=== PATIENT | female | born 1980 | race Caucasian/White ===

== ENCOUNTER 2023-08-19 15:47 | Inpatient (IN) ==
--- NOTE | 2023-08-19 15:52 | ED Triage Note ---
Date of Service August 19, 2023 History of Present Illness This patient was briefly evaluated while in triage. An abbreviated physical exam was performed. This patient is a 42-year-old Female who presents to the ED for evaluation of chest pain. The patient had chest pain around lunchtime. Patient also had nausea as well. She did take nitroglycerin with improvement of symptoms, other than having pain radiating around to the back. Patient currently describes left lateral chest/rib pain. She denies shortness of breath. The patient had a myocardial infarction on July 06, and had a stent placed at [facility]. The patient reports that her current pain is different than the pain that she had with her initial heart attack. Physical Exam CONSTITUTIONAL: Healthy and well nourished. HEENT: Normocephalic, atraumatic. Pupils equal, round and reactive. RESPIRATORY: Clear to auscultation bilaterally with no wheezing, crackles, rhonchi or stridor. CARDIOVASCULAR: Regular rate and rhythm with no murmurs, rubs or gallops. INTEGUMENTARY: No rash or other significant dermatologic conditions noted. HEMATOLOGIC: No ecchymosis or petechiae. PSYCHIATRIC: Positive affect. NEUROLOGIC: No focal neurologic deficits noted. Initial orders for labs and / or imaging were placed and patient was placed in the waiting area until a bed is available. Please see further documentation for the full ED course.
[2023-08-19 16:36] LABS: Basophils # (auto) 0.05 K/uL (0.00-0.20); Basophils % (auto) 0.5 %; Eosinophils # (auto) 0.19 K/uL (0.00-0.50); Eosinophils % (auto) 1.9 %; Hematocrit (blood only) 38.4 % (37.0-47.0); Hemoglobin 12.8 g/dl (12.0-16.0); Immature Granulocytes # (auto) 0.03 K/uL (0.01-0.20); Immature Granulocytes % (auto) 0.3 %; Lymphocytes # (auto) 2.42 K/uL (1.20-3.40); Lymphocytes % (auto) 24.5 %; Mean Corpuscular Hgb Conc 33.3 g/dL (32.0-36.0); Mean Platelet Volume 12.9 fL (9.4-12.4); Monocytes # (auto) 0.73 K/uL (0.11-0.59); Monocytes % (auto) 7.4 %; Neutrophils # (auto) 6.45 K/uL (1.40-6.50); Neutrophils % (auto) 65.4 %; Platelet Count 212 K/uL (130-400); RDW Coefficient of Variation 12.6 % (11.5-14.5); RDW Standard Deviation 44.5 fL (36.4-46.3); White Blood Count 9.87 K/ul (4.8-10.8)
--- NOTE | 2023-08-19 16:37 | Emergency Department Note ---
Impression & Plan Chest pain ED Provider Note CHIEF COMPLAINT: Chest pain HPI: This is a 42-year-old female presenting for chest pain. Patient states she had an VT on 07/29, possibly right RCA which she can remember exactly. She states that that chest pain was significant nausea, vomiting and chest burning. Today her chest pain is different, she is slightly nauseous but has a deep pain in her left chest at the apex of her heart rating into her left shoulder. She has a pressure type sensation. It is somewhat pleuritic and positional. Otherwise the pain is different than her ACS/VT pain. It is not as severe. She is having no shortness of breath at this time. There is no actual vomiting today. She did take nitro for her pain which improved her symptoms transiently. ROS: See above HPI for pertinent positives & negatives. A total of 10 systems reviewed and were otherwise negative. PAST MEDICAL HISTORY: See Below PAST SURGICAL HISTORY: See Below FAMILY HISTORY: See Below SOCIAL HISTORY: See Below HOME MEDICATIONS: See Below ALLERGIES: See Below VITALS: See Below PHYSICAL EXAMINATION: General: resting comfortably in no acute distress Head: Normocephalic and atraumatic Eyes: Normal inspection, extraocular muscles intact Ear, nose, throat: Normal external exam Neck: Normal range of motion Respiratory: lungs clear to auscultation bilaterally Cardiovascular: Regular rate/rhythm, no murmur GI: soft, nontender, no guarding or rebound Extremities: nontender, moves all extremities Neuro: The patient awake and alert, appropriately conversive, no focal deficits, symmetric faces Skin: Warm, dry, and intact MEDICAL DECISION MAKING: This is a 42-year-old female presenting for chest pain. Patient VT on 07/29, about 3 weeks ago. Bedside echocardiogram performed by me and interpreted showing no large pericardial effusion, preserved EF otherwise, otherwise views are technically limited. Patient's blood work here is reassuring, no leukocytosis, no anemia, electrolytes within normal limits. Creatinine is elevated 1.4, rising from previous values. Otherwise troponin initially was 12, not significantly elevated. Patient does not have any significant improvement in chest pain. Chest Xray independently interpreted by me showing no pneumothorax, focal opacity, or pleural effusions. Patient is Wells/PERC negative at this time. Low concern for PE. Consider post VT complications, will admit for further work-up. Discussed with hospitalist VANDANA from [facility] service for admission Triage Nursing notes reviewed. Prior medical records reviewed Vital Signs: reviewed and remarkable for no significant abnormalities Differential diagnosis: ACS, dissection, Alvaro syndrome, ventricular aneurysm, ER treatment provided: See below Diagnostics interpreted by me: ECG: ECG independently interpreted by me with sinus bradycardia, rate of 56, normal ME, normal QRS, normal QTc, no ST segment elevations consistent with STEMI criteria, new T wave inversions in leads II, III and aVF as well as V3 through V6 Cardiac Monitoring: An order was placed for continuous cardiac monitoring. The monitor shows a rate of 65 with sinus rhythm. Laboratory studies: As stated above and show below. Imaging studies: See below. Radiographic imaging was reviewed by myself Consultation(s): None Past Med/Surg History Medical History (Updated 08/19/23 @ 19:39 by August Thomas MD) Tobacco use History of ST elevation myocardial infarction (STEMI) SLE (systemic lupus erythematosus related syndrome) delivery delivered Chest pain Lupus Pneumonitis Family History (Updated 08/19/23 @ 19:16 by LISBET Bolanos) Father Coronary heart disease Mother Coronary heart disease Other Dyslipidemia Heart disease Hypertension No pertinent family history Social History Smoking Status: Current every day smoker Tobacco Type: Cigarettes Preferred Language: Yoruba Communication Ability: Effective Communication Ability Comment: slurred speach/drowsy Visual Impairment: No Limitations Hearing Ability: Normal 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 Beliefs That Will Affect Care: None marital status details: Current Living Situation: Family Feels Safe at Home: Yes Assistive Devices: None Allergies Allergies Allergy/AdvReac Type Severity Reaction Status Date / Time Penicillins Allergy Intermediate Hives Verified 02/22/20 15:38 Home Meds Home Medications Medication Instructions Recorded Confirmed hydroxychloroquine 200 mg tablet 400 mg PO QAM 07/08/18 08/19/23 (Plaquenil) aspirin 81 mg tablet,delayed 81 mg PO DAILY 08/19/23 08/19/23 release atorvastatin 80 mg PO DAILY 08/19/23 08/19/23 duloxetine 60 mg capsule,delayed 60 mg PO DAILY 08/19/23 08/19/23 release gabapentin 300 mg capsule 600 mg PO HS 08/19/23 08/19/23 losartan 25 mg tablet 25 mg PO DAILY 08/19/23 08/19/23 nicotine 21 mg/24 hr daily 1 patch transdermal DAILY 08/19/23 08/19/23 transdermal patch nitroglycerin 0.4 mg sublingual 0.4 mg sublingual UD PRN Chest Pain 08/19/23 08/19/23 tablet prasugrel 10 mg tablet 10 mg PO .EVERY 24 HOURS 08/19/23 08/19/23 quetiapine 100 mg tablet 100 mg PO HS 08/19/23 08/19/23 semaglutide (weight loss) 2.4 2.4 mg subcut WK 08/19/23 08/19/23 mg/0.75 mL subcutaneous pen injector (Wegovy) verapamil 240 mg tablet,extended 240 mg PO QAM 08/19/23 08/19/23 release Results & Data (ED) Vital Signs Vital Signs - 24 hr 08/19/23 15:49 08/19/23 16:01 08/19/23 16:08 Temperature 36.2 C L Temperature Source Temporal Artery Scan Pulse Rate 67 56 L Pulse Rate from SpO2 Sensor 56 L Respiratory Rate 18 9 L Respiratory Effort / Characteristics Non-Labored Blood Pressure 150/79 H Blood Pressure Mean 102 Pulse Oximetry 96 98 Oxygen Delivery Method Room Air Sepsis Recent Fever Within 48 Hours No Sepsis New/Unexplained Change in Mental Status No Sepsis Action Taken by Nursing No Action Required 08/19/23 16:08 08/19/23 16:11 08/19/23 16:15 Temperature Temperature Source Pulse Rate 56 L 56 L Pulse Rate from SpO2 Sensor 57 L Respiratory Rate 13 Respiratory Effort / Characteristics Blood Pressure Blood Pressure Mean Pulse Oximetry 99 Oxygen Delivery Method Room Air Sepsis Recent Fever Within 48 Hours Sepsis New/Unexplained Change in Mental Status Sepsis Action Taken by Nursing 08/19/23 16:30 08/19/23 16:45 08/19/23 17:01 Temperature Temperature Source Pulse Rate 67 56 L 55 L Pulse Rate from SpO2 Sensor 66 56 L 55 L Respiratory Rate 19 11 L 11 L Respiratory Effort / Characteristics Blood Pressure 131/68 Blood Pressure Mean 89 Pulse Oximetry 95 99 100 Oxygen Delivery Method Sepsis Recent Fever Within 48 Hours Sepsis New/Unexplained Change in Mental Status Sepsis Action Taken by Nursing 08/19/23 17:15 08/19/23 17:26 08/19/23 17:26 Temperature Temperature Source Pulse Rate 54 L 55 L Pulse Rate from SpO2 Sensor 53 L 53 L Respiratory Rate 9 L 10 L Respiratory Effort / Characteristics Blood Pressure 131/68 Blood Pressure Mean 82 Pulse Oximetry 97 99 Oxygen Delivery Method Sepsis Recent Fever Within 48 Hours Sepsis New/Unexplained Change in Mental Status Sepsis Action Taken by Nursing 08/19/23 17:30 08/19/23 17:45 08/19/23 18:00 Temperature Temperature Source Pulse Rate 66 58 L 50 L Pulse Rate from SpO2 Sensor 102 H 55 L 50 L Respiratory Rate 16 14 16 Respiratory Effort / Characteristics Blood Pressure Blood Pressure Mean Pulse Oximetry 79 L 99 99 Oxygen Delivery Method Sepsis Recent Fever Within 48 Hours Sepsis New/Unexplained Change in Mental Status Sepsis Action Taken by Nursing 08/19/23 18:00 08/19/23 18:15 08/19/23 18:30 Temperature Temperature Source Pulse Rate 55 L 74 Pulse Rate from SpO2 Sensor 57 L Respiratory Rate 18 16 Respiratory Effort / Characteristics Blood Pressure 126/73 Blood Pressure Mean 82 Pulse Oximetry 100 85 L Oxygen Delivery Method Sepsis Recent Fever Within 48 Hours Sepsis New/Unexplained Change in Mental Status Sepsis Action Taken by Nursing 08/19/23 18:45 08/19/23 19:00 Temperature Temperature Source Pulse Rate 65 Pulse Rate from SpO2 Sensor 65 59 L Respiratory Rate 13 20 Respiratory Effort / Characteristics Blood Pressure Blood Pressure Mean Pulse Oximetry 98 90 Oxygen Delivery Method Sepsis Recent Fever Within 48 Hours Sepsis New/Unexplained Change in Mental Status Sepsis Action Taken by Nursing Laboratory Data 08/19/23 16:09 08/19/23 16:09 Lab Results 08/19/23 Range/Units 16:09 WBC 9.87 (4.8-10.8) K/ul RBC 4.00 L (4.20-5.40) M/uL Hgb 12.8 (12.0-16.0) g/dl Hct 38.4 (37.0-47.0) % MCV 96.0 (80.0-100.0) fL MCH 32.0 (25.0-34.0) pg MCHC 33.3 (32.0-36.0) g/dL RDW Std Deviation 44.5 (36.4-46.3) fL RDW Coeff of Fred 12.6 (11.5-14.5) % Plt Count 212 (130-400) K/uL MPV 12.9 H (9.4-12.4) fL Immature Gran % (Auto) 0.3 % Neut % (Auto) 65.4 % Lymph % (Auto) 24.5 % Gilliam % (Auto) 7.4 % Eos % (Auto) 1.9 % Baso % (Auto) 0.5 % Neut # (Auto) 6.45 (1.40-6.50) K/uL Lymph # (Auto) 2.42 (1.20-3.40) K/uL Gilliam # (Auto) 0.73 H (0.11-0.59) K/uL Eos # (Auto) 0.19 (0.00-0.50) K/uL Baso # (Auto) 0.05 (0.00-0.20) K/uL Immature Gran # (Auto) 0.03 (0.01-0.20) K/uL PT 11.1 (9.0-12.0) Seconds INR 1.0 (0.9-1.1) APTT 25.1 (21.0-31.0) Seconds PTT Ratio 0.9 Sodium 141 (136-145) mmol/L Potassium 3.7 (3.5-5.1) mmol/L Chloride 107 (98-107) mmol/L Carbon Dioxide 26 (21-32) mmol/L Anion Gap 8 (3-11) BUN 12 (6-23) mg/dl Creatinine 1.40 H (0.6-1.2) mg/dl Est Cr Clr Drug Dosing 55.7 ml/min Est GFR ( Amer) 52.8 ml/min Est GFR (Non-Af Amer) 45.6 ml/min BUN/Creatinine Ratio 8.6 L (10-20) Glucose 107 H (70-99(Fasting)) mg/dl Calcium 9.3 (8.6-10.3) mg/dl Total Bilirubin 0.6 (0.2-1.0) mg/dl AST 17 (13-39) U/L ALT 14 (7-52) U/L Alkaline Phosphatase 84 (34-104) U/L Troponin I High Sens 12.4 (0-14) pg/ml Total Protein 7.0 (6.0-8.3) gm/dl Albumin 4.3 (3.4-5.0) gm/dl Globulin 2.7 (2.5-4.0) gm/dl Albumin/Globulin Ratio 1.6 (0.9-2) Imaging Data Radiologist's Impression: Chest X-Ray 08/19/23 16:15 XR chest 1V not portable CLINICAL HISTORY: Chest pain, nonspecific COMPARISON STUDY: Chest CT September 11, 2016. Chest radiograph July 07, 2018. FINDINGS: Lung volumes are normal. Lungs are clear. There is no pneumothorax or pleural effusion. Cardiac size is normal. Mediastinal contours are normal. There is no evidence for pulmonary edema. IMPRESSION: No acute cardiopulmonary findings. ACT 112: Negative or not required by law. Electronically signed by: Tom Flaherty M.D. 08/19/2023 4:46 PM Discharge Plan Visit Data Chief Complaint: Chest Pain Stated Complaint: CHEST PAIN, VOMITING, STINT PUT IN ED Provider: August Thomas Discharge Problem: Chest pain Patient Disposition: Admitted As Inpatient Discharge Instructions Interventions: ED Discharge Assessment Last Done: 08/19/23 19:23 Prescriptions Prescriptions: No Action hydroxychloroquine [Plaquenil] 200 mg Tablet 400 mg PO QAM losartan 25 mg tablet 25 mg PO DAILY gabapentin 300 mg capsule 600 mg PO HS Wegovy 2.4 mg/0.75 mL pen injector 2.4 mg SUBCUT WK aspirin [Aspirin Low-Strength] 81 mg Tablet,Delayed Release (Dr/Ec) 81 mg PO DAILY prasugrel 10 mg tablet 10 mg PO .EVERY 24 HOURS nicotine 21 mg/24 hr patch 24 hour 1 patch transdermal DAILY quetiapine 100 mg tablet 100 mg PO HS duloxetine 60 mg capsule,delayed release(DR/EC) 60 mg PO DAILY nitroglycerin 0.4 mg tablet, sublingual 0.4 mg sublingual UD PRN (Reason: Chest Pain) verapamil 240 mg tablet extended release 240 mg PO QAM atorvastatin 80 mg PO DAILY
[2023-08-19 16:48] LABS: Albumin Globulin Ratio 1.6 (0.9-2); Albumin Level 4.3 gm/dl (3.4-5.0); BUN Creatinine Ratio 8.6 (10-20); Bilirubin,Total 0.6 mg/dl (0.2-1.0); Calcium 9.3 mg/dl (8.6-10.3); Creatinine Clr Calc Pharmacy 55.7 ml/min; Est GFR (African American) 52.8 ml/min; Est GFR (Non-African American) 45.6 ml/min; Globulin 2.7 gm/dl (2.5-4.0); Potassium 3.7 mmol/L (3.5-5.1)
--- NOTE | 2023-08-19 16:48 | XRay Report ---
XR chest 1V not portable CLINICAL HISTORY: Chest pain, nonspecific COMPARISON STUDY: Chest CT September 11, 2016. Chest radiograph July 07, 2018. FINDINGS: Lung volumes are normal. Lungs are clear. There is no pneumothorax or pleural effusion. Car diac size is normal. Mediastinal contours are normal. There is no evidence for pulmonary edema. IMPRESSION: No acute cardiopulmonary findings. ACT 112: Negative or not required by law. Electronically signed by: Tom Flaherty M.D. 08/19/2023 4:46 PM
[2023-08-19 16:57] LABS: Partial Thromboplastin Ratio 0.9; Partial Thromboplastin Time 25.1 Seconds (21.0-31.0); Prothrombin Time 11.1 Seconds (9.0-12.0); Troponin I High Sensitivity 12.4 pg/ml (0-14)
[2023-08-19] MEDS ORDERED: MAGNESIUM HYDROXIDE SUSP 30 ML UDC PO PRN (18:18)
[2023-08-19] MEDS ORDERED: ACETAMINOPHEN 325 MG TAB PO PRN (18:18)
[2023-08-19] MEDS ORDERED: ALUMINUM/MAGNESIUM SUSP 30 ML UDC PO PRN (18:18)
[2023-08-19] MEDS ORDERED: ONDANSETRON INJ 2 MG/ML 2 ML VIAL IV PRN (18:18)
[2023-08-19] MEDS ORDERED: POLYETHYLENE (MIRALAX) 17 GM PACK PO PRN (18:18)
--- NOTE | 2023-08-19 18:25 | History & Physical Report ---
Date of Service August 19, 2023 Assessment & Plan (1) Chest pain: (2) History of ST elevation myocardial infarction (STEMI): (3) SLE (systemic lupus erythematosus related syndrome): (4) Depression: (5) Tobacco use: Plan Ms. Belle is a pleasant 42 year old female that presented to the [facility] ED for chest pain that started today. She woke at 0730 not 'feeling well'. She went to work and around 1130 felt nauseated and vomited x1. She reports feeling slightly better and tried eating lunch around noon. She noticed that she developed chest pain under her left breast with shoulder/back radiation at 12:00; she proceeded to take SL Nitro x1 with relief. Patient recently experienced a STEMI on 07/06/23 and underwent PCI s/p drug-eluting stent x1 to RCA at [facility] after being transferred from [facility] that precipitated with a sudden onset of chest pain at rest while she was watching her sons baseball game in [place]. She has reported no symptoms since her STEMI and has had one follow up with [facility] Cardiology and saw Dr. Pinto on Wednesday 08/15 at [facility]. She is in the process of transferring her cardiology care to [facility]. ECG during her STEMI showed ST elevations in the inferior leads with depressions in V1 V2 concerning for inferior ST-elevation NV with RV involvement. Echocardiogram done at the time showed LVEF of 45-50%. This information was obtained from [employer]MR[employer]; however, was unable to review those ECG myself. After her STEMI she was subsequently started on baby ASA, Atorvastatin 80 mg, Effient, and Losartan. Per patient she was not a candidate for a betabl ocker due to bradycardia. Additional PMH includes SLE (managed by Dr. Dawkins and takes Plaquinol), obesity, and depression. Patient with extensive cardiac family history including father at 60 y/o s/p AMI/CAD. Mother with carotid stenosis s/p endarectomy.Patient is an active tobacco user; reducing; currently smoking 4-5 cigarettes per day, along with medical marijuana for a nxiety. Denies other recreational drug use and alcohol. In the ED, no leukocytosis, ED performed bedside ECHO US without concerns for pericardial effusion. Initial Troponin 12.4; will trend. Currently with NO chest pain. WELLS criteria 3.0; suspect low indication for PE. No SOB at rest. To note, patient is on Verapamil for history of headaches and has taken this medication for years; per outpatient review may be held in the future for preservation of EF. For now, patient will be admitted to rule out post NV complications with new onset of chest pain. patient is currently chest pain free. Will obtain ECHO, continue ASA, Effient, Atorvastatin, and obtain Cardiology consultation. Chest pain: CAD: acute uncontrolled currently chest pain free Initial Troponin 12.4; will trend Check Mg+ ECG in AM and PRN Takes Effient;continue Takes ASA, Atorvastatin; continue Takes Wegovy; hold Obtain ECHO. Per review of [facility] records; patient ECHO during her STEMI revealed EVEF 45-50%; suspected related to Verapamil use Euvolemic on exam ECG in AM Initiate heparin gtt LIZZETH: baseline creatinine 1.0--> 1.4 Suspect History of STEMI: 07/06/2023: sudden onset of chest pain. Transferred from [place] to [facility] for PCI s/p TY x1 to RCA. Tobacco Use: smoking cessation recommended d/t recent STEMI and strong CAD family risks Nicotine patch ordered SLE: chronic stable Follows with Dr. Brown Takes Plaquinil; continue Depression: chronic stable takes Seroquel; continue Headaches: Chronic stable Takes Verapamil for years; continue for now [facility] records indicate this was being considered to be dicontinued Disposition: PCP: Dr. Horowitz Code status: Full Code VTE Prophylaxis: Takes Effient I spent a total of 88 minutes coordinating, documenting, and providing care for this patient excluding time spent in the performance of separately billed ser vices. All of the aforementioned completed while collaborating with the assigned attending physician for a full treatment plan. Please see their addendum for further details. History of Present Illness Chief Complaint: chest pain Primary Care Provider: De. Horowitz Ms. Belle is a pleasant 42 year old female that presented to the [facility] ED for chest pain that started today. She woke at 0730 not 'feeling well'. She went to work and around 1130 felt nauseated and vomited x1. She reports feeling slightly better and tried eating lunch around noon. She noticed that she developed chest pain under her left breast with shoulder/back radiation at 12:00; she proceeded to take SL Nitro x1 with relief. Patient recently experienced a STEMI on 07/06/23 and underwent PCI s/p drug-eluting stent x1 to RCA at [facility] after being transferred from [facility] that precipitated with a sudden onset of chest pain at rest while she was watching her sons baseball game in [place]. She has reported no symptoms since her STEMI and has had one follow up with [facility] Cardiology and saw Dr. Pinto on Wednesday 08/15 at [facility]. She is in the process of transferring her cardiology care to [facility]. ECG during her STEMI showed ST elevations in the inferior leads with depressions in V1 V2 concerning for inferior ST-elevation NV with RV involvement. Echocardiogram done at the time showed LVEF of 45-50%. This information was obtained from [employer]MR[employer]; however, was unable to review those ECG myself. After her STEMI she was subsequently started on baby ASA, Atorvastatin 80 mg, Effient, and Losartan. Per patient she was not a candidate for a betablocker due to bradycardia. Additional PMH includes SLE (managed by Dr. Dawkins and takes Plauinol), obesity, and depression. Patient with extensive cardiac family history including father at 60 y/o s/p AMI/CAD. Mother with carotid stenosis s/p endarectomy. Patient is an active tobacco user; reducing; currently smoking 4-5 cigarettes per day, along with medical marijuana for anxiety. Denies other recreational drug use and alcohol. In the ED, no leukocytosis, ED performed bedside ECHO US without concerns for pericardial effusion. Initial Troponin 12.4; will trend. Currently with NO chest pain. WELLS criteria 3.0; suspect low indication for PE. No SOB at rest. To note, patient is on Verapamil for history of headaches and has taken this medication for years; per outpatient review may be held in the future for preservation of EF. ECG today SB HR 49 QTc < 500. For now, patient will be admitted to rule out post NV complications with new onset of chest pain. patient is currently chest pain free. Will obtain ECHO, continue ASA, Effient, Atorvastatin, and obtain Cardiology consultation. WIll initiate heparin gtt with note of the ECG changes. Allergies Allergy/AdvReac Type Severity Reaction Status Date / Time Penicillins Allergy Intermediate Hives Verified 02/22/20 15:38 Home Medications Medication Instructions Recorded Confirmed Type hydroxychloroquine 200 mg tablet 400 mg PO QAM 07/08/18 08/19/23 History (Plaquenil) aspirin 81 mg tablet,delayed 81 mg PO DAILY 08/19/23 08/19/23 History release atorvastatin 80 mg PO DAILY 08/19/23 08/19/23 History duloxetine 60 mg capsule,delayed 60 mg PO DAILY 08/19/23 08/19/23 History release gabapentin 300 mg capsule 600 mg PO HS 08/19/23 08/19/23 History losartan 25 mg tablet 25 mg PO DAILY 08/19/23 08/19/23 History nicotine 21 mg/24 hr daily 1 patch transdermal DAILY 08/19/23 08/19/23 History transdermal patch nitroglycerin 0.4 mg sublingual 0.4 mg sublingual UD PRN Chest Pain 08/19/23 08/19/23 History tablet prasugrel 10 mg tablet 10 mg PO .EVERY 24 HOURS 08/19/23 08/19/23 History quetiapine 100 mg tablet 100 mg PO HS 08/19/23 08/19/23 History semaglutide (weight loss) 2.4 2.4 mg subcut WK 08/19/23 08/19/23 History mg/0.75 mL subcutaneous pen injector (Wereginaldvy) verapamil 240 mg tablet,extended 240 mg PO QAM 08/19/23 08/19/23 History release Past Med/Surg History Medical History (Updated 08/19/23 @ 21:55 by Janet Burrell DO) Tobacco use History of ST elevation myocardial infarction (STEMI) SLE (systemic lupus erythematosus related syndrome) delivery delivered Chest pain Lupus Pneumonitis Family History (Updated 08/19/23 @ 19:16 by LISBET Bolanos) Father Coronary heart disease Mother Coronary heart disease Other Dyslipidemia Heart disease Hypertension No pertinent family history Social History Smoking Status: Current every day smoker Tobacco Type: Cigarettes Second Hand Exposure: No; Do You Dip or Chew Tobacco: No; Tobacco Cessation Education Requested by Patient: No Hx Alcohol Use: No Preferred Language: Nepali Communication Ability: Effective Visual Impairment: No Limitations Hearing Ability: Normal Shift Superintendent Required: No Beliefs That Will Affect Care: None marital status details: Current Living Situation: Family Other Information That Helps Us Care for You: No Feels Safe at Home: Yes Assistive Devices: Glasses Review of Systems Review of Systems: Neuro: (-) Falls, trauma, slurred speech HEENT: (-) SALAZAR, dizziness, dysphagia, visual or auditory changes CV: (-) CP, palpitations, swelling Resp: (-) SOB GI: (-) appetite changes, N/V/D, bowel changes : (-) urinary changes Skin: (-) rashes Psych: (-) anxiety, depression Physical Exam Physical Exam: Neuro: AAOx4, PERRLA, no aphagia, memory changes, CNII-XII grossly intact HEENT: head normocephalic, moist mucus membranes CV: S1/S2, (-) M/G/R, (-) edema, cap refill < 3 seconds Resp: Lungs CTA in all amador. On RA GI: Abdomen S/NT/ND, Ax4 bowel sounds, (-) CVA tenderness Musculoskeletal: 5/5 B/L UE strength, 5/5 B/L LE strength. No gait disturbance Skin: (-) rashes , (-) erythema. Psych: euthymic mood Results & Data Results & Data Vital Signs (Past 12 Hours) Vital Signs Temp Pulse Resp BP Pulse Ox O2 Del Method 08/19/23 17:45 58 L 14 99 08/19/23 17:30 66 16 79 L 08/19/23 17:26 131/68 08/19/23 17:26 55 L 10 L 99 08/19/23 17:15 54 L 9 L 97 08/19/23 17:01 55 L 11 L 131/68 100 08/19/23 16:45 56 L 11 L 99 08/19/23 16:30 67 19 95 08/19/23 16:15 56 L 13 99 08/19/23 16:11 56 L 08/19/23 16:08 Room Air 08/19/23 16:01 56 L 9 L 98 08/19/23 15:49 36.2 C L 67 18 150/79 H 96 Room Air Laboratory Results Short CBC 08/19/23 Range/Units 16:09 WBC 9.87 (4.8-10.8) K/ul Hgb 12.8 (12.0-16.0) g/dl Hct 38.4 (37.0-47.0) % Plt Count 212 (130-400) K/uL BMP 08/19/23 16:09 Sodium 141 Potassium 3.7 Chloride 107 Carbon Dioxide 26 BUN 12 Creatinine 1.40 H Glucose 107 H Calcium 9.3 Liver Function 08/19/23 Range/Units 16:09 Total Bilirubin 0.6 (0.2-1.0) mg/dl AST 17 (13-39) U/L ALT 14 (7-52) U/L Alkaline Phosphatase 84 (34-104) U/L Albumin 4.3 (3.4-5.0) gm/dl Diagnostic Findings Chest X-Ray 08/19/23 16:15 XR chest 1V not portable CLINICAL HISTORY: Chest pain, nonspecific COMPARISON STUDY: Chest CT September 11, 2016. Chest radiograph July 07, 2018. FINDINGS: Lung volumes are normal. Lungs are clear. There is no pneumothorax or pleural effusion. Cardiac size is normal. Mediastinal contours are normal. There is no evidence for pulmonary edema. IMPRESSION: No acute cardiopulmonary findings. ACT 112: Negative or not required by law. Electronically signed by: Tom Flaherty M.D. 08/19/2023 4:46 PM Code Status & VTE Plan Code Status Full Code in the event of cardiac or respiratory arrest VTE Prophylaxis Plan VTE Prophylaxis will be ordered: Yes Supervising Physician Co-Signing Physician Notes I have seen and examined the patient and have discussed the case with the provider above. I agree with the assessment and plan as stated. 42-year-old female with nausea vomiting chest pain with radiation resolved with nitro. Recently underwent drug-eluting stent placement to RCA at [facility] after presenting with an ST elevation NV. She has a significant cardiac history and is continuing to smoke cigarettes. On physical exam she is hemodynamically stable and afebrile oxygenating well on room air. She is mentating and ambulating at her baseline. CV exam reveals S1-S2 heard with regular rate and rhythm. Heart sounds were distant and she was repositioned on to her left side. There was no evidence of murmur gallops or rubs. Extremities were warm and well-perfused. She was euvolemic on exam. Lungs were clear to auscultation bilaterally and abdomen soft nontender nondistended. EKG reveals T wave inversion in the inferior and lateral leads. There is no evidence of ST elevation. Initial at bedtime troponin was 12.4 with a repeat of 20.83 hours later. Labs otherwise reviewed and creatinine was noted to be up to 1.4. Patient reports that her baseline creatinine is 1.3. Chest x-ray reveals no acute cardiopulmonary findings. Chest pain, concerning for possible ACS and given high risk will add heparin to DAPT. Trend trop overnight, EKG in am. Telemetry monitoring overnight. I explained to her the importance of vocalizing when she has pain and she verbalized understanding with intent to comply. Nitro PRN. Cardiology to see her in the morning. DO Indra (1) Chest pain Chest pain type: chest pain due to myocardial ischemia Ischemic chest pain type: unspecified angina pectoris type Qualified Code(s): I25.9 - Chronic ischemic heart disease, unspecified (4) Depression Depression Type: unspecified Qualified Code(s): F32.A - Depression, unspecified
[2023-08-19 19:39] LABS: Chol HDL Ratio 3.2 (0-5); Phosphorus 4.2 mg/dl (2.5-4.9)
[2023-08-19 19:45] LABS: Troponin I High Sensitivity 20.8 pg/ml (0-14)
[2023-08-19] MEDS ORDERED: NICOTINE 14 MG/24 HR PATCH TD SCH (20:00)
[2023-08-19] MEDS: QUEtiapine FUMARATE 100 MG TABLET PO SCH (21:02)
[2023-08-19] MEDS: GABAPENTIN 300 MG CAP PO SCH (21:02)
[2023-08-19] MEDS ORDERED: Heparin IV Adult Wt-Based Standard WITH Bolus Protocol IV SCH (21:05)
[2023-08-19] MEDS ORDERED: HEPARIN SOD (PORCINE) 1000 UNIT/ML IV ONE (21:45)
[2023-08-19] MEDS ORDERED: HEPARIN SODIUM/DEXTROSE 25,000 UNITS/500 ML BAG IV SCH (21:45)
[2023-08-20 05:07] LABS: Hematocrit (blood only) 34.9 % (37.0-47.0); Hemoglobin 11.6 g/dl (12.0-16.0); Mean Corpuscular Hemoglobin 32.4 pg (25.0-34.0); Mean Corpuscular Hgb Conc 33.2 g/dL (32.0-36.0); Mean Corpuscular Volume 97.5 fL (80.0-100.0); Mean Platelet Volume 12.8 fL (9.4-12.4); Platelet Count 171 K/uL (130-400); RDW Coefficient of Variation 12.7 % (11.5-14.5); RDW Standard Deviation 45.4 fL (36.4-46.3); Red Blood Count 3.58 M/uL (4.20-5.40); White Blood Count 8.13 K/ul (4.8-10.8)
[2023-08-20 05:21] LABS: BUN Creatinine Ratio 7.9 (10-20); Calcium 9.2 mg/dl (8.6-10.3); Creatinine Clr Calc Pharmacy 56.1 ml/min; Est GFR (African American) 53.3 ml/min; Magnesium 2.3 mg/dl (1.7-2.4); Potassium 3.9 mmol/L (3.5-5.1)
[2023-08-20 05:45] LABS: Partial Thromboplastin Ratio > 4.9
[2023-08-20 05:55] LABS: Partial Thromboplastin Time > 139.0 Seconds (21.0-31.0)
--- NOTE | 2023-08-20 08:21 | Electrocardiogram Report ---
Test Reason : Blood Pressure : / mmHG Vent. Rate : 056 BPM Atrial Rate : 056 BPM P-R Int : 198 ms QRS Dur : 096 ms QT Int : 468 ms P-R-T Axes : 035 058 -18 degrees QTc Int : 451 ms Sinus bradycardia Low voltage QRS T wave abnormality, consider inferior ischemia Chronic T-wave inversion in Anterior leads Abnormal ECG When compared with ECG of 08-JUL-2018 05:18, T wave inversion now evident in Inferior leads Confirmed by Alvaro Bowie ([id number]) on 08/20/2023 8:20:58 AM Referred By: Unruly Pinto Confirmed By:Alvaro Bowie
[2023-08-20] MEDS: ATORVASTATIN 40 MG TAB PO SCH (08:28)
[2023-08-20] MEDS: ASPIRIN 81 MG ECTAB PO SCH (08:28)
[2023-08-20] MEDS: DULoxetine HCL 60 MG CAP PO SCH (08:30)
[2023-08-20] MEDS: HYDROXYCHLOROQUINE SULFATE 200 MG TAB PO SCH (08:31)
[2023-08-20] MEDS: PRASugrel TAB 10 MG TAB PO SCH (08:32)
[2023-08-20] MEDS: VERAPAMIL HCL 240 MG TABCR PO SCH (08:32)
--- NOTE | 2023-08-20 08:36 | Cardiology Consultation ---
Date of Consultation August 20, 2023 Assessment & Plan (1) Chest pain: (2) ASCVD (arteriosclerotic cardiovascular disease): (3) Dyslipidemia, goal LDL below 70: (4) HTN (hypertension): (5) Elevated troponin: Supervising Physician Co-Signing Physician Notes Attending Staff: Pt seen and examined with AP staff Concur with observations and plans 42 yo woman presenting with nausea/vomiting + Chest pain * 1 SL NTG with relief * Sx unlike recent presentation with ACS * ACS - Inferior STEMI - [facility] * TY to RCA * LVEF 35% by LV gram * ECHO: LVEF 45-50% * EKG: OLD IMI, PRWP, Bradycardic * CXR: clear * ECHO was repeated on 08/20/2023 - LVEF 60-65%, No major valvular pathology, NL RV function - No reported WMA * For SLE - follows with rheumatology * Original presentation with ACS - vomiting; "hertburn" * Adherent to medical regimen - particularly DAPT * + Nausea/Vomiting * Pain under left breast * Presented to ED * Started on Heparin * Pain was exacerbated by deep breath * No recent travel * No trauma to chest ASCVD Risks: * SLE - Dx in 2004 * Chronic Smoker (Active) * Hypertension * Hyperlipidemia (LDL 207 in 06/2018) - 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; on STATIN - LDL most recently 63 * Strong Family Hx - (Father with CAD in 50's; mother with hyperlipidemia) * Obesity Medical Co-Morbidities: * Chronic Migraines * GUZMAN Plans: * Presentation not fully consistent with ACS * Troponin - minimal elevation * EKG - no major ST segment deviation * LVEF - WNL- no WMA * SBP @ goal * HR @ goal * Plans for Pharmacologic Stress Test to exonerate RCA Stent * Pt is on Verapamil * Consider Decrease Verapamil to 120 mg to allow for initiation of Beta Augusto post [place] * STOP Heparin * Continue on DAPT * Continue on Lipitor 80 mg po per day (LDL 63) * NPO Past MN tonight (can feed patient today) Lj Griffiths History of Present Illness Reason for Consultation: "Chest pain, status post STEMI three weeks ago" Requesting Physician: Dali Attending Physician: Beto History of Present Illness 42 year old female History - SLE diagnosed in 2004, on Plaquinol, followed by Rheumatology - Chronic tobacco use - Dyslipidemia - LDL cholesterol 207 mg/dL on 06/24/2018 - Family history of atherosclerosis (father with CAD in his 50's, mother with c arotid artery disease) - Hypertension with history of pre-eclampsia - Chronic migraine headaches (on verapamil) - Stage III CKD - Depression - Recently diagnosed mild obstructive sleep apnea. July 06, 2023 inferior STEMI - burning in chest discomfort associated with diaphoresis, nausea, generalized malaise. July 06, 2023 Cardiac Catheterization: - Patent LM. - Patent LAD. - Patent LCX. - Large dominant RCA with large thrombus at the taylor occluding the lumen, 75%, status post thrombectomy and PCI with a TY to the RCA - LV gram with EF 35% with inferior and apical hypokinesis. - TTE with EF 45-50% Patient presented to [facility] on 08/19/2023 after awakening not feeling well, with nausea and vomiting x 1, later developing chest discomfort under the left breast with radiation of discomfort to the back and shoulder, taking one sublingual nitroglycerin with relief. Symptoms reported to be unlike prior angina. - EKG: Sinus bradycardia at 56 bpm with low voltage QRS, inferior T wave changes suggestive of ischemic, chronic T wave inversion anterolaterally. - Troponin: 12.4 -> 20.8 -> 15.7 -> 14.0 - TTE: Normal LV. EF 60-65%. Normal LV wall motion. Normal RV function. No significant valve pathology - CXR: No acute cardiopulmonary findings. - Creatinine 1.4 on presentation. - H&H 12.8 and 38.4 on presentation - LDL cholesterol 63 mg/dL - Telemetry: Sinus bradycardia into the 40's overnight, currently in the mid 50's. No significant pauses. - Prescribed ASA 81 mg/day, Prasugrel 10 mg/day, atorvastatin 80 mg/day, and Losartan 25 mg/day Allergies Allergy/AdvReac Type Severity Reaction Status Date / Time Penicillins Allergy Intermediate Hives Verified 02/22/20 15:38 Home Medications Medication Instructions Recorded Confirmed Type hydroxychloroquine 200 mg tablet 400 mg PO QAM 07/08/18 08/19/23 History (Plaquenil) aspirin 81 mg tablet,delayed 81 mg PO DAILY 08/19/23 08/19/23 History release atorvastatin 80 mg PO DAILY 08/19/23 08/19/23 History duloxetine 60 mg capsule,delayed 60 mg PO DAILY 08/19/23 08/19/23 History release gabapentin 300 mg capsule 600 mg PO HS 08/19/23 08/19/23 History losartan 25 mg tablet 25 mg PO DAILY 08/19/23 08/19/23 History nicotine 21 mg/24 hr daily 1 patch transdermal DAILY 08/19/23 08/19/23 History transdermal patch nitroglycerin 0.4 mg sublingual 0.4 mg sublingual UD PRN Chest Pain 08/19/23 08/19/23 History tablet prasugrel 10 mg tablet 10 mg PO .EVERY 24 HOURS 08/19/23 08/19/23 History quetiapine 100 mg tablet 100 mg PO HS 08/19/23 08/19/23 History semaglutide (weight loss) 2.4 2.4 mg subcut WK 08/19/23 08/19/23 History mg/0.75 mL subcutaneous pen injector (Sincere) verapamil 240 mg tablet,extended 240 mg PO QAM 08/19/23 08/19/23 History release Patient History Medical History Tobacco use History of ST elevation myocardial infarction (STEMI) SLE (systemic lupus erythematosus related syndrome) delivery delivered Chest pain Lupus Pneumonitis Family History Father Coronary heart disease Mother Coronary heart disease Other Dyslipidemia Heart disease Hypertension No pertinent family history Social History Smoking Status: Current every day smoker Tobacco Type: Cigarettes Second Hand Exposure: No; Do You Dip or Chew Tobacco: No; Tobacco Cessation Education Requested by Patient: No Hx Alcohol Use: No Preferred Language: Italian Communication Ability: Effective Visual Impairment: No Limitations Hearing Ability: Normal Central Office Operator Required: No Beliefs That Will Affect Care: None marital status details: Current Living Situation: Family Other Information That Helps Us Care for You: No Feels Safe at Home: Yes Assistive Devices: Glasses Review of Systems Review of Systems: All systems reviewed & are unremarkable except as noted in HPI & below Complete Review of Systems is as stated above, negative, or noncontributory. Results & Data Vital Signs (Past 12 Hours) Vital Signs Temp Pulse Pulse Resp BP Pulse Ox O2 Del Method 08/20/23 07:59 36.5 C 65 18 101/67 Room Air 08/20/23 05:10 58 L 08/20/23 03:44 36.5 C 63 18 115/73 97 Room Air 08/19/23 23:48 37.1 C 88 18 128/80 95 Room Air Laboratory Results Cardiac Enzymes 08/19/23 08/19/23 08/20/23 Range/Units 16:09 19:00 00:37 AST 17 (13-39) U/L Troponin I High Sens 12.4 20.8 H 15.7 H D (0-14) pg/ml 08/20/23 Range/Units 07:48 AST (13-39) U/L Troponin I High Sens 14.0 (0-14) pg/ml Coagulation 08/19/23 08/20/23 08/20/23 Range/Units 16:09 04:05 07:48 PT 11.1 (9.0-12.0) Seconds APTT 25.1 > 139.0 H* 55.0 H* (21.0-31.0) Seconds Lipids 08/19/23 Range/Units 19:00 Triglycerides 107 (0-150) mg/dl Cholesterol 122 (0-200) mg/dl HDL Cholesterol 38 mg/dl Cholesterol/HDL Ratio 3.2 (0-5) CBC 08/19/23 08/20/23 Range/Units 16:09 04:05 WBC 9.87 8.13 (4.8-10.8) K/ul RBC 4.00 L 3.58 L (4.20-5.40) M/uL Hgb 12.8 11.6 L (12.0-16.0) g/dl Hct 38.4 34.9 L (37.0-47.0) % Plt Count 212 171 (130-400) K/uL Neut # (Auto) 6.45 (1.40-6.50) K/uL Lymph # (Auto) 2.42 (1.20-3.40) K/uL [place] # (Auto) 0.73 H (0.11-0.59) K/uL Eos # (Auto) 0.19 (0.00-0.50) K/uL Baso # (Auto) 0.05 (0.00-0.20) K/uL Comprehensive Metabolic Panel 08/19/23 08/20/23 Range/Units 16:09 04:05 Sodium 141 141 (136-145) mmol/L Potassium 3.7 3.9 (3.5-5.1) mmol/L Chloride 107 109 H (98-107) mmol/L Carbon Dioxide 26 28 (21-32) mmol/L BUN 12 11 (6-23) mg/dl Creatinine 1.40 H 1.39 H (0.6-1.2) mg/dl Glucose 107 H 84 (70-99(Fasting)) mg/dl Calcium 9.3 9.2 (8.6-10.3) mg/dl AST 17 (13-39) U/L ALT 14 (7-52) U/L Alkaline Phosphatase 84 (34-104) U/L Total Protein 7.0 (6.0-8.3) gm/dl Albumin 4.3 (3.4-5.0) gm/dl Intake and Output 08/19/23 08/20/23 08/20/23 22:59 06:59 14:59 Intake Total 198.333 / 198.333 0 / 0 Balance 198.333 / 198.333 0 / 0 Intake: IV 198.333 / 198.333 0 / 0 Heparin Sodium/Dextrose 25,000 198.333 / 198.333 0 / 0 units In 500 ml @ 1,250 UNITS/ HR 25 mls/hr IV .Q20H [facility] Rx#: [id number] Other: Other Intake Source sips # Unmeasured Voids 2 Weight 83.1 kg Weight Measurement Method Built in [facility] Medications Administered Current Inpatient Medications Acetaminophen (Acetaminophen 325 Mg Tab) 650 mg PO Q4H PRN PRN Reason: Pain or Fever Stop: 09/18/23 18:17 Al Hydrox/Mg Hydrox/Simethicone (Aluminum/Magnesium Susp 30 Ml Udc) 15 ml PO Q4H PRN PRN Reason: Dyspepsia Stop: 09/18/23 18:17 Aspirin (Aspirin 81 Mg Ectab) 81 mg PO DAILY [facility] Stop: 09/19/23 08:59 Last Admin: 08/20/23 08:28 Dose: 81 mg Atorvastatin Calcium (Atorvastatin 40 Mg Tab) 80 mg PO DAILY [facility] Stop: 09/19/23 08:59 Last Admin: 08/20/23 08:28 Dose: 80 mg Duloxetine HCl (Duloxetine Hcl 60 Mg Cap) 60 mg PO DAILY [facility] Stop: 09/19/23 08:59 Last Admin: 08/20/23 08:30 Dose: 60 mg Gabapentin (Gabapentin 300 Mg Cap) 600 mg PO HS [facility] Stop: 09/18/23 20:59 Last Admin: 08/19/23 21:02 Dose: 600 mg Hydroxychloroquine Sulfate (Hydroxychloroquine Sulfate 200 Mg Tab) 400 mg PO QAM [facility] Stop: 09/19/23 08:59 Last Admin: 08/20/23 08:31 Dose: 400 mg Heparin Sodium/Dextrose (Heparin Sodium/Dextrose) 25,000 units in 500 mls @ 18 mls/hr IV .Q24H [facility]; Protocol Stop: 09/18/23 21:44 Last Titration: 08/20/23 08:40 Dose: 900 units/hr, 18 mls/hr Magnesium Hydroxide (Magnesium Hydroxide Susp 30 Ml Udc) 30 ml PO Q12H PRN PRN Reason: Constipation Stop: 09/18/23 18:17 Miscellaneous (Remove Nicoderm Patch) 1 each N/A DAILY@0859 [facility] Stop: 09/19/23 08:58 Last Admin: 08/20/23 08:27 Dose: 1 each Nicotine (Nicotine 14 Mg/24 Hr Patch) [facility] [place] [facility] [place]: 09/18/23 19:59 Last Admin: 08/19/23 21:03 Dose: 14 mg Ondansetron HCl (Ondansetron Inj 2 Mg/Ml 2 Ml Vial) 4 mg IV Q6H PRN PRN Reason: Nausea Stop: 09/18/23 18:17 Last Admin: 08/19/23 21:07 Dose: 4 mg Polyethylene Glycol (Polyethylene (Miralax) 17 Gm Pack) 17 gm PO DAILY PRN PRN Reason: Constipation Stop: 09/18/23 18:17 Prasugrel (Prasugrel Tab 10 Mg Tab) 10 mg PO QAM [facility] Stop: 09/19/23 08:59 Last Admin: 08/20/23 08:32 Dose: 10 mg Quetiapine Fumarate (Quetiapine Fumarate 100 Mg Tablet) 100 mg PO HS [facility] Stop: 09/18/23 20:59 Last Admin: 08/19/23 21:02 Dose: 100 mg Verapamil HCl (Verapamil Hcl 240 Mg Tabcr) 240 mg PO QAM [facility] Stop: 09/19/23 08:59 Last Admin: 08/20/23 08:32 Dose: 240 mg (1) Chest pain Chest pain type: chest pain due to myocardial ischemia Ischemic chest pain type: unspecified angina pectoris type Qualified Code(s): I25.9 - Chronic ischemic heart disease, unspecified (4) HTN (hypertension) Hypertension type: primary hypertension Qualified Code(s): I10 - Essential (primary) hypertension
[2023-08-20] MEDS ORDERED: LOSARTAN POTASSIUM 25 MG TAB PO SCH (09:00)
[2023-08-20] MEDS: SODIUM CHLORIDE 0.9% 1,000 ML IV SCH (11:30)
[2023-08-20 15:36] LABS: Partial Thromboplastin Ratio 0.9
--- NOTE | 2023-08-20 18:25 | Hospitalist Progress Note ---
Date of Service August 20, 2023 Assessment & Plan (1) Chest pain: (2) History of ST elevation myocardial infarction (STEMI): (3) SLE (systemic lupus erythematosus related syndrome): (4) Depression: (5) Tobacco use: Plan 42 year old female that presented to the [facility] ED for chest pain that started on the day of arrival 08/19. She woke at 0730 not 'feeling well'. She went to work and around 1130 felt nauseated and vomited x1. She reports feeling slightly better and tried eating lunch around noon. She noticed that she developed chest pain under her left breast with shoulder/back radiation at 12:00; she proceeded to take SL Nitro x1 with relief. Patient recently experienced a STEMI on 07/06/23 and underwent PCI s/p drug- eluting stent x1 to RCA at [facility] after being transferred from [facility] that precipitated with a sudden onset of chest pain at rest while she was watching her sons baseball game in [place]. She is being managed for the following: Chest pain: ho CAD: currently chest pain free Initial Troponin 12.4; flat trend Echo reviewed. Monitor/replace/maintain electrolyte balance. EKG with chest pain. Continue ASA/statin/prasugrel Cardiology on board, plan for pharmacological stress test tomorrow. Stop heparin. Continue DAPT. N.p.o. midnight. Acute kidney injury: baseline creatinine 1.0--> 1.4 On IV fluid, labs in AM. History of STEMI: 07/06/2023: sudden onset of chest pain. Transferred from [place] to [facility] for PCI s/p TY x1 to RCA. Tobacco Use: smoking cessation recommended d/t recent STEMI and strong CAD family risks Nicotine patch on hold. SLE: chronic stable Follows with Dr. Brown Takes Plaquinil; continue Depression: chronic stable takes Seroquel; continue Headaches: Chronic stable Takes Verapamil for years; continue for now OPT records indicate this was being considered to be discontinued Disposition: PCP: Dr. Horowitz Code status: Full Code DVT prophylaxis: Heparin subcu Admission and Anticipated Discharge Date Admission Date: August 19, 2023 Subjective Patient was seen and examined at bedside. NAD, reports no new acute event overnight, denies any further chest pain while in hospital, patient was sitting up in bed, on room air, reports feeling better, denies any fever/headache/chills/palpitation. Physical Exam Physical Exam: GENERAL: Alert and oriented x3. NAD, on RA. HEENT: No pallor, no icterus. Pupils equal, round and reactive to light. Oral mucosa moist. NECK: No JVD, no neck masses. HEART: S1 and S2 heard. Regular rate and rhythm. No murmur, no gallop. RESPIRATORY SYSTEM: Normal AP diameter. No accessory muscle use. No wheezing, no crackles. ABDOMEN: Soft, bowel sounds present, nontender, no distention. CENTRAL NERVOUS SYSTEM: No facial droop. Speech is clear. Obeys simple commands. Moves extremities. EXTREMITIES: No edema, no erythema seen. Results & Data Results & Data Vital Signs (Past 12 Hours) Vital Signs Temp Pulse Pulse Resp BP BP Pulse Ox 08/20/23 14:44 36.8 C 60 18 86/55 L 86/54 L 98 08/20/23 13:59 56 L 08/20/23 11:27 36.6 C 54 L 18 101/66 96 08/20/23 07:59 36.5 C 65 18 101/67 O2 Del Method 08/20/23 14:44 Room Air 08/20/23 13:59 08/20/23 11:27 Room Air 08/20/23 07:59 Room Air (1) Chest pain Chest pain type: chest pain due to myocardial ischemia Ischemic chest pain type: unspecified angina pectoris type Qualified Code(s): I25.9 - Chronic ischemic heart disease, unspecified (4) Depression Depression Type: unspecified Qualified Code(s): F32.A - Depression, unspecified
[2023-08-20] MEDS: GABAPENTIN 300 MG CAP PO SCH (20:36)
[2023-08-20] MEDS: QUEtiapine FUMARATE 100 MG TABLET PO SCH (20:37)
[2023-08-20] MEDS: HEPARIN SOD 5,000 UNIT/0.5 ML VIAL SQ SCH (20:38)
[2023-08-21] MEDS: SODIUM CHLORIDE 0.9% 1,000 ML IV SCH (00:03)
[2023-08-21 06:40] LABS: Hematocrit (blood only) 35.9 % (37.0-47.0); Hemoglobin 11.9 g/dl (12.0-16.0); Mean Corpuscular Hemoglobin 32.2 pg (25.0-34.0); Mean Corpuscular Hgb Conc 33.1 g/dL (32.0-36.0); Mean Corpuscular Volume 97.3 fL (80.0-100.0); Platelet Count 177 K/uL (130-400); RDW Coefficient of Variation 12.7 % (11.5-14.5); RDW Standard Deviation 45.6 fL (36.4-46.3); Red Blood Count 3.69 M/uL (4.20-5.40); White Blood Count 6.38 K/ul (4.8-10.8)
[2023-08-21 06:52] LABS: Calcium 8.9 mg/dl (8.6-10.3); Creatinine Clr Calc Pharmacy 62.6 ml/min; Est GFR (African American) 60.6 ml/min; Est GFR (Non-African American) 52.3 ml/min; Magnesium 2.2 mg/dl (1.7-2.4); Potassium 3.9 mmol/L (3.5-5.1)
--- NOTE | 2023-08-21 09:39 | Cardiology Progress Note ---
Date of Service August 21, 2023 Assessment & Plan Admission and Anticipated Discharge Date Admission Date: August 19, 2023 Supervising Physician Co-Signing Physician Notes Attending Staff: Pt seen and examined with AP staff Concur with observations and plans 42 yo woman presenting with nausea/vomiting + Chest pain * 1 SL NTG with relief * Sx unlike recent presentation with ACS * ACS - Inferior STEMI - [facility] * TY to RCA * LVEF 35% by LV gram * ECHO: LVEF 45-50% * EKG: OLD IMI, PRWP, Bradycardic * CXR: clear * ECHO was repeated on 08/20/2023 - LVEF 60-65%, No major valvular pathology, NL RV function - No reported WMA * For SLE - follows with rheumatology * Original presentation with ACS - vomiting; "hertburn" * Adherent to medical regimen - particularly DAPT * + Nausea/Vomiting * Pain under left breast * Presented to ED * Started on Heparin * Pain was exacerbated by deep breath * No recent travel * No trauma to chest ASCVD Risks: * SLE - Dx in 2004 * Chronic Smoker (Active) * Hypertension * Hyperlipidemia (LDL 207 in 06/2018) - 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; on STATIN - LDL most recently 63 * Strong Family Hx - (Father with CAD in 50's; mother with hyperlipidemia) * Obesity Medical Co-Morbidities: * Chronic Migraines * GUZMAN Plans: * Presentation not fully consistent with ACS * Troponin - minimal elevation (20, 15, 14) * EKG - no major ST segment deviations; inferior/anterior TWI * LVEF - WNL- no WMA * SBP @ goal * HR @ goal * Pharmacologic Stress Test to exonerate RCA Stent - Completed - Results Pending * Pt is on Verapamil * Consider Decrease Verapamil to 120 mg to allow for initiation of Beta Augusto post [place] - Verapamil is for Migraine Prevention. * Heparin (OFF) * Continue DAPT * Continue Lipitor 80 mg po per day (LDL 63) * Awaiting results of nuclear stress test Lj Griffiths Subjective Events overnight: * None reported * No telemetry evens Subjective: * No complaints Review of Systems Review of Systems: All systems reviewed & are unremarkable except as noted in HPI & below Physical Exam Physical Exam: Overweight No elevation in JVP S1S2 soft 2/6 systolic murmur CTA B No C/C/E, warm and perfusing Results & Data Vital Signs (Past 12 Hours) Vital Signs Temp Pulse Pulse Resp BP BP Pulse Ox 11/16/23 07:56 36.4 C L 55 L 18 114/72 97 08/21/23 03:53 36.6 C 86 18 107/57 L 97 08/20/23 23:23 36.6 C 54 L 16 102/56 L 94 08/20/23 22:01 53 L O2 Del Method 08/21/23 07:56 Room Air 08/21/23 03:53 Room Air 08/20/23 23:23 Room Air 08/20/23 22:01 Laboratory Results Coagulation 08/20/23 Range/Units 15:08 APTT 26.0 (21.0-31.0) Seconds CBC 08/21/23 Range/Units 06:00 WBC 6.38 (4.8-10.8) K/ul RBC 3.69 L (4.20-5.40) M/uL Hgb 11.9 L (12.0-16.0) g/dl Hct 35.9 L (37.0-47.0) % Plt Count 177 (130-400) K/uL Comprehensive Metabolic Panel 08/21/23 Range/Units 06:00 Sodium 141 (136-145) mmol/L Potassium 3.9 (3.5-5.1) mmol/L Chloride 112 H (98-107) mmol/L Carbon Dioxide 26 (21-32) mmol/L BUN 10 (6-23) mg/dl Creatinine 1.25 H (0.6-1.2) mg/dl Glucose 84 (70-99(Fasting)) mg/dl Calcium 8.9 (8.6-10.3) mg/dl Intake and Output 08/20/23 08/21/23 08/21/23 22:59 06:59 14:59 Intake Total 500 / 1967.2 1200 / 1967.2 Balance 500 / 1967.2 1200 / 1967.2 Intake: IV 1000 / 1028.2 Sodium Chloride 0.9% 1,000 ml @ 1000 / 1000 80 mls/hr IV .[id number] [facility] Rx#: [id number] Oral 500 / 940 200 / 940 Other: # Unmeasured Voids 3 1 Weight 83.688 kg Weight Measurement Method [facility] Medications Administered Current Inpatient Medications Acetaminophen (Acetaminophen 325 Mg Tab) 650 mg PO Q4H PRN PRN Reason: Pain or Fever Stop: 09/18/23 18:17 Al Hydrox/Mg Hydrox/Simethicone (Aluminum/Magnesium Susp 30 Ml Udc) 15 ml PO Q4H PRN PRN Reason: Dyspepsia Stop: 09/18/23 18:17 Aspirin (Aspirin 81 Mg Ectab) 81 mg PO DAILY [facility] Stop: 09/19/23 08:59 Last Admin: 08/20/23 08:28 Dose: 81 mg Atorvastatin Calcium (Atorvastatin 40 Mg Tab) 80 mg PO DAILY [facility] Stop: 09/19/23 08:59 Last Admin: 08/20/23 08:28 Dose: 80 mg Duloxetine HCl (Duloxetine Hcl 60 Mg Cap) 60 mg PO DAILY [facility] Stop: 09/19/23 08:59 Last Admin: 08/20/23 08:30 Dose: 60 mg Gabapentin (Gabapentin 300 Mg Cap) 600 mg PO HS [facility] Stop: 09/18/23 20:59 Last Admin: 08/20/23 20:36 Dose: 600 mg Heparin Sodium (Porcine) (Heparin Sod 5,000 Unit/0.5 Ml Vial) 5,000 units SQ Q12 [facility] Stop: 09/19/23 20:59 Last Admin: 08/20/23 20:38 Dose: 5,000 units Hydroxychloroquine Sulfate (Hydroxychloroquine Sulfate 200 Mg Tab) 400 mg PO QAM [facility] Stop: 09/19/23 08:59 Last Admin: 08/20/23 08:31 Dose: 400 mg Sodium Chloride (Nss) 1,000 mls @ 80 mls/hr IV .[id number] [facility] Stop: 08/21/23 11:29 Last Admin: 08/21/23 00:03 Dose: 80 mls/hr Magnesium Hydroxide (Magnesium Hydroxide Susp 30 Ml Udc) 30 ml PO Q12H PRN PRN Reason: Constipation Stop: 09/18/23 18:17 Miscellaneous (Remove Nicoderm Patch) 1 each N/A DAILY@0859 [facility] Stop: 09/19/23 08:58 Last Admin: 08/20/23 08:27 Dose: 1 each Nicotine (Nicotine 14 Mg/24 Hr Patch) 14 mg TD QAM [facility] Stop: 09/18/23 19:59 Last Admin: 08/19/23 21:03 Dose: 14 mg Ondansetron HCl (Ondansetron Inj 2 Mg/Ml 2 Ml Vial) 4 mg IV Q6H PRN PRN Reason: Nausea Stop: 09/18/23 18:17 Last Admin: 08/19/23 21:07 Dose: 4 mg Polyethylene Glycol (Polyethylene (Miralax) 17 Gm Pack) 17 gm PO DAILY PRN PRN Reason: Constipation Stop: 09/18/23 18:17 Prasugrel (Pr[facility]ugrel Tab 10 Mg Tab) [facility] [place]: 09/19/23 08:59 Last Admin: 08/20/23 08:32 Dose: 10 mg Quetiapine Fumarate (Quetiapine Fumarate 100 Mg Tablet) 100 mg PO HS [facility] Stop: 09/18/23 20:59 Last Admin: 08/20/23 20:37 Dose: 100 mg Verapamil HCl (Verapamil Hcl 240 Mg Tabcr) [facility] [place]: 09/19/23 08:59 Last Admin: 08/20/23 08:32 Dose: 240 mg
[2023-08-21] MEDS: VERAPAMIL HCL 240 MG TABCR PO SCH (10:14)
[2023-08-21] MEDS: HYDROXYCHLOROQUINE SULFATE 200 MG TAB PO SCH (10:14)
[2023-08-21] MEDS: PRASugrel TAB 10 MG TAB PO SCH (10:14)
[2023-08-21] MEDS: ASPIRIN 81 MG ECTAB PO SCH (10:14)
[2023-08-21] MEDS: ATORVASTATIN 40 MG TAB PO SCH (10:15)
[2023-08-21] MEDS: DULoxetine HCL 60 MG CAP PO SCH (10:15)
[2023-08-21] MEDS: HEPARIN SOD 5,000 UNIT/0.5 ML VIAL SQ SCH ×2 (10:15→20:37)
--- NOTE | 2023-08-21 15:24 | Hospitalist Progress Note ---
Date of Service August 21, 2023 Assessment & Plan (1) Chest pain: (2) History of ST elevation myocardial infarction (STEMI): (3) SLE (systemic lupus erythematosus related syndrome): (4) Depression: (5) Tobacco use: Plan 42 year old female that presented to the [facility] ED for chest pain that started on the day of arrival 08/19. She woke at 0730 not 'feeling well'. She went to work and around 1130 felt nauseated and vomited x1. She reports feeling slightly better and tried eating lunch around noon. She noticed that she developed chest pain under her left breast with shoulder/back radiation at 12:00; she proceeded to take SL Nitro x1 with relief. Patient recently experienced a STEMI on 07/06/23 and underwent PCI s/p drug- eluting stent x1 to RCA at [facility] after being transferred from [facility] that precipitated with a sudden onset of chest pain at rest while she was watching her sons baseball game in [place]. She is being managed for the following: Chest pain: ho CAD: currently chest pain free Initial Troponin 12.4; flat trend Echo reviewed. Monitor/replace/maintain electrolyte balance. EKG with chest pain. Continue ASA/statin/prasugrel Cardiology on board, pharmacological stress test today. Awaiting results. Continue DAPT. Acute kidney injury: baseline creatinine 1.0--> 1.4 Creatinine improved. DC IV fluids. History of STEMI: 07/06/2023: sudden onset of chest pain. Transferred from [place] to [facility] for PCI s/p TY x1 to RCA. Tobacco Use: smoking cessation recommended d/t recent STEMI and strong CAD family risks Nicotine patch on hold. SLE: chronic stable Follows with Dr. Brown Takes Plaquinil; continue Depression: chronic stable takes Seroquel; continue Headaches: Chronic stable Takes Verapamil for years; continue for now OPT records indicate this was being considered to be discontinued Disposition: PCP: Dr. Horowitz Code status: Full Code DVT prophylaxis: Heparin subcu Disposition: DC when cleared per cardiology. Admission and Anticipated Discharge Date Admission Date: August 19, 2023 Subjective Patient was seen and examined at bedside. NAD, reports no new acute event overnight, denies any further chest pain while in hospital, patient was sitting up in bed, on room air, reports feeling better, denies any fever/headache/chills/palpitation. Underwent stress test today, awaiting results. Physical Exam Physical Exam: GENERAL: Alert and oriented x3. NAD, on RA. HEENT: No pallor, no icterus. Pupils equal, round and reactive to light. Oral mucosa moist. NECK: No JVD, no neck masses. HEART: S1 and S2 heard. Regular rate and rhythm. No murmur, no gallop. RESPIRATORY SYSTEM: Normal AP diameter. No accessory muscle use. No wheezing, no crackles. ABDOMEN: Soft, bowel sounds present, nontender, no distention. CENTRAL NERVOUS SYSTEM: No facial droop. Speech is clear. Obeys simple commands. Moves extremities. EXTREMITIES: No edema, no erythema seen. Results & Data Results & Data Vital Signs (Past 12 Hours) Vital Signs Temp Pulse Resp BP BP Pulse Ox O2 Del Method 08/21/23 11:40 36.4 C L 58 L 18 114/63 97 Room Air 08/21/23 07:56 36.4 C L 55 L 18 114/72 97 Room Air 08/21/23 03:53 36.6 C 86 18 107/57 L 97 Room Air (1) Chest pain Chest pain type: chest pain due to myocardial ischemia Ischemic chest pain type: unspecified angina pectoris type Qualified Code(s): I25.9 - Chronic ischemic heart disease, unspecified (4) Depression Depression Type: unspecified Qualified Code(s): F32.A - Depression, unspecified
--- NOTE | 2023-08-21 16:51 | Myocardial Perfusion Study ---
Date of Service August 21, 2023 Myocardial Perfusion Study k Myocardial Perfusion Study Report ONE DAY NUCLEAR MEDICINE LEXISCAN TECHNETIUM 99M MYOCARDIAL PERFUSION SCAN Indication: Chest pain Baseline ECG: Normal sinus rhythm Stress ECG: No Lexiscan induced ST changes. Hemodynamics: HR lexi from 59 bpm to 98 bpm representing 55% MPHR. BP 133/82 mmHg to 122/87 mmHg Technique: For the stress portion of the study 31.2 mCi of Technetium 99m Cardiolite IV was injected at 09:13 on 08/21/2023. 30 minutes following the injection, imaging of the heart was performed in multiple projections. For the rest portion of the study, 10.3 mCi of Technetium 99m Cardiolite was injected IV at 07:30. One hour following the injection, imaging of the hear was performed in the same projections. Raw images: Rotating raw images were reviewed in detail. Potential sources of attenuation include diaphragmatic shadowing and significant gut uptake impacting the inferior and apical imaging borders of the heart. No significant extracardiac pathologic uptake. Perfusion images: Short axis, vertical long axis and horizontal long axis images were reviewed in detail. No visual transient ischemic dilation. Small fixed inferoapical defect most likely attenuation secondary to gut/diaphragm, small nontransmural infarct cannot be excluded. No significant reversible perfusion defects to suggest ischemia were identified. Gated images: LV is non-dilated. Normal wall motion. EDV 76 ml.ESV 25 ml. Calculated EF 67%. . SUMMARY: 1. Lexiscan myocardial perfusion study negative for ischemia. Small inferoapical defect secondary to attenuation versus small nontransmural infarct. 2. Normal left ventricular size and systolic function. Calculated ejection fraction 67%. No wall motion abnormalities. 3. No Lexiscan induced ECG changes. 4. No anginal symptoms. [facility] [place] Myocardial perfusion code Indication for Procedure (1) Elevated troponin: (2) ASCVD (arteriosclerotic cardiovascular disease): (3) Chest pain: Procedure Code Procedure 1: Myocardial Perfusion Codes: 37350 Cardiovascular Stress Test, multiple Procedure 2: Myocardial Perfusion Codes: 61539 Cardiovascular Stress Test, supervision only Procedure 3: Myocardial Perfusion Codes: 17979 Cardiovascular Stress Test, interpretation and report
--- NOTE | 2023-08-21 17:58 | Discharge Summary ---
Date of Service August 21, 2023 Admission HPI Per Admitting Provider Ms. Belle is a pleasant 42 year old female that presented to the [facility] ED for chest pain that started today. She woke at 0730 not 'feeling well'. She went to work and around 1130 felt nauseated and vomited x1. She reports feeling slightly better and tried eating lunch around noon. She noticed that she developed chest pain under her left breast with shoulder/back radiation at 12:00; she proceeded to take SL Nitro x1 with relief. Patient recently experienced a STEMI on 07/06/23 and underwent PCI s/p drug-eluting stent x1 to RCA at [facility] after being transferred from [facility] that precipitated with a sudden onset of chest pain at rest while she was watching her sons baseball game in [place]. She has reported no symptoms since her STEMI and has had one follow up with [facility] Cardiology and saw Dr. Pinto on Wednesday 08/15 at [facility]. She is in the process of transferring her cardiology care to [facility]. ECG during her STEMI showed ST elevations in the inferior leads with depressions in V1 V2 concerning for inferior ST-elevation AZ with RV involvement. Echocardiogram done at the time showed LVEF of 45-50%. This information was obtained from [employer]MR[employer]; however, was unable to review those ECG myself. After her STEMI she was subsequently started on baby ASA, Atorvastatin 80 mg, Effient, and Losartan. Per patient she was not a candidate for a betablocker due to bradycardia. Additional PMH includes SLE (managed by Dr. Dawkins and takes Plauinol), obesity, and depression. Patient with extensive cardiac family history including father at 60 y/o s/p AMI/CAD. Mother with carotid stenosis s/p endarectomy. Patient is an active tobacco user; reducing; currently smoking 4-5 cigarettes p er day, along with medical marijuana for anxiety. Denies other recreational drug use and alcohol. In the ED, no leukocytosis, ED performed bedside ECHO US without concerns for pericardial effusion. Initial Troponin 12.4; will trend. Currently with NO chest pain. WELLS criteria 3.0; suspect low indication for PE. No SOB at rest. To note, patient is on Verapamil for history of headaches and has taken this medication for years; per outpatient review may be held in the future for preservation of EF. ECG today SB HR 49 QTc < 500. For now, patient will be admitted to rule out post AZ complications with new onset of chest pain. patient is currently chest pain free. Will obtain ECHO, continue ASA, Effient, Atorvastatin, and obtain Cardiology consultation. WIll initiate heparin gtt with note of the ECG changes. Admission Exam Per Admitting Provider Neuro: AAOx4, PERRLA, no aphagia, memory changes, CNII-XII grossly intact HEENT: head normocephalic, moist mucus membranes CV: S1/S2, (-) M/G/R, (-) edema, cap refill < 3 seconds Resp: Lungs CTA in all amador. On RA GI: Abdomen S/NT/ND, Ax4 bowel sounds, (-) CVA tenderness Musculoskeletal: 5/5 B/L UE strength, 5/5 B/L LE strength. No gait disturbance Skin: (-) rashes , (-) erythema. Psych: euthymic mood Principal Diagnosis Chest pain rule out ACS Discharge Exam GENERAL: Alert and oriented x3. NAD, on RA. HEENT: No pallor, no icterus. Pupils equal, round and reactive to light. Oral mucosa moist. NECK: No JVD, no neck masses. HEART: S1 and S2 heard. Regular rate and rhythm. No murmur, no gallop. RESPIRATORY SYSTEM: Normal AP diameter. No accessory muscle use. No wheezing, no crackles. ABDOMEN: Soft, bowel sounds present, nontender, no distention. CENTRAL NERVOUS SYSTEM: No facial droop. Speech is clear. Obeys simple commands. Moves extremities. EXTREMITIES: No edema, no erythema seen. Discharge Data Allergies Allergy/AdvReac Type Severity Reaction Status Date / Time Penicillins Allergy Intermediate Hives Verified 02/22/20 15:38 Consultations 08/19/23 18:04 ED Decision to Admit Stat 08/20/23 08:00 Consult Cardiology Routine Hospital Course (1) Chest pain: (2) History of ST elevation myocardial infarction (STEMI): (3) SLE (systemic lupus erythematosus related syndrome): (4) Depression: (5) Tobacco use: Plan 42 year old female that presented to the [facility] ED for chest pain that started on the day of arrival 08/19. She woke at 0730 not 'feeling well'. She went to work and around 1130 felt nauseated and vomited x1. She reports feeling slightly better and tried eating lunch around noon. She noticed that she developed chest pain under her left breast with shoulder/back radiation at 12:00; she proceeded to take SL Nitro x1 with relief. Patient recently experienced a STEMI on 07/06/23 and underwent PCI s/p drug- eluting stent x1 to RCA at [facility] after being transferred from [facility] that precipitated with a sudden onset of chest pain at rest while she was watching her sons baseball game in [place]. She was managed for the following: Chest pain: ho CAD: currently chest pain free Initial Troponin 12.4; flat trend Echo reviewed. Monitor/replace/maintain electrolyte balance. EKG with chest pain. Continue ASA/statin/prasugrel Cardiology on board, pharmacological stress test today - came back neg for inducible ischemia. Continue DAPT. Acute kidney injury: baseline creatinine 1.0--> 1.4 Creatinine improved. DC IV fluids. History of STEMI: 07/06/2023: sudden onset of chest pain. Transferred from [place] to [facility] for PCI s/p TY x1 to RCA. Tobacco Use: smoking cessation recommended d/t recent STEMI and strong CAD family risks Nicotine patch on hold. SLE: chronic stable Follows with Dr. Brown Takes Plaquinil; continue Depression: chronic stable takes Seroquel; continue Headaches: Chronic stable Takes Verapamil for years; continue for now OPT records indicate this was being considered to be discontinued Disposition: PCP: Dr. Horowitz Code status: Full Code DVT prophylaxis: Heparin subcu Pt being discharged to home w/ following instructions at the point of discharge: Follow-up with your primary care physician within a week time and likely you will need labs CBC/CMP/magnesium/phosphorus. You underwent a stress test while in the hospital, which came back negative for heart ischemia. Continue to take your aspirin/statin/prasugrel as prior. Strongly advise against smoking tobacco. Take your medications as prescribed. Please make sure that you are able to get your medications today by calling your pharmacy before you leave the hospital so that your treatment continuity is not broken. [facility] Attestation I certify that this patient is under my care and that I, or a physicians liaison inspection laboratory assistant working with me, had a face to-face encounter that meets the [id number] encounter requirements with this patient. The encounter with the patient was in whole, or in part, for the following medical condition, which is the primary reason for home health care (list medical condition): I certify that, based on my findings, the following services are medically necessary home health services: My clinical findings support the need for the above services because: Further, I certify that my clinical findings support that this patient is homebound (i.e. absences from home require considerable and taxing effort and are for medical reasons or anglican services or infrequently or of short duration when for other reasons) because: Certification for Home Health Services: Based on the above findings, I certify that this patient is confined to the home and needs intermittent senior care care, physical therapy and/or speech therapy or continues to need occupational therapy. The patient is under my care, and I have initiated the establishment of the plan of care. This patient will be followed by a physician who will periodically review the plan of care. Total Time Total Time Spent Total Time Spent (In Minutes): 40 Discharge Plan Discharge Items Patient Disposition: Home - Self-Care Reason For Visit: CHEST PAIN Discharge Diagnosis: Chest pain rule out ACS Activity: Resume your previous activity Non-emergency contact: Primary Care Provider Call non-emergency contact if: you have any medication questions Follow-up/Referrals: Yancy Horowitz MD [Primary Care Provider] - Diet: Heart Healthy and Low Sodium (2gm) Addtl Attending Provider Instructions: Follow-up with your primary care physician within a week time and likely you will need labs CBC/CMP/magnesium/phosphorus. You underwent a stress test while in the hospital, which came back negative for heart ischemia. Continue to take your aspirin/statin/prasugrel as prior. Strongly advise against smoking tobacco. Take your medications as prescribed. Please make sure that you are able to get your medications today by calling your pharmacy before you leave the hospital so that your treatment continuity is not broken. Pending Studies at Discharge: No Stand-Alone Forms: My [facility] [place], Smoking Cessation Medications and DC Order Prescriptions: Continued hydroxychloroquine [Plaquenil] 200 mg Tablet 400 mg PO QAM losartan 25 mg tablet 25 mg PO DAILY gabapentin 300 mg capsule 600 mg PO HS Wegovy 2.4 mg/0.75 mL pen injector 2.4 mg SUBCUT WK aspirin [Aspirin Low-Strength] 81 mg Tablet,Delayed Release (Dr/Ec) 81 mg PO DAILY prasugrel 10 mg tablet 10 mg PO .EVERY 24 HOURS nicotine 21 mg/24 hr patch 24 hour 1 patch transdermal DAILY quetiapine 100 mg tablet 100 mg PO HS duloxetine 60 mg capsule,delayed release(DR/EC) 60 mg PO DAILY nitroglycerin 0.4 mg tablet, sublingual 0.4 mg sublingual UD PRN (Reason: Chest Pain) verapamil 240 mg tablet extended release 240 mg PO QAM atorvastatin 80 mg PO DAILY Discharge Orders: Discharge Order (Routine); Ordered 08/21/23 Ordered By: Ely Pérez Admission Data Admit Date/Time: 08/19/23 18:18 Attending Provider: Ely Pérez Admit Provider: Janet Burrell Primary Care Provider: Yancy Horowitz Other Providers: Janet Burrell; Lj Griffiths
[2023-08-21] MEDS: GABAPENTIN 300 MG CAP PO SCH (20:37)
[2023-08-21] MEDS: QUEtiapine FUMARATE 100 MG TABLET PO SCH (20:38)
--- OUTSIDE RECORDS SUMMARY | 2023-08-21 22:24 | External Medical Summary | Summary of Care ---
Author Name Unknown Organization [facility] Address [address] [facility] [place] [address] Phone [phone] Care Team Providers Care Rn Gynecology Name Role Phone Brent Horowitz MD Primary Care Provid er Reason for Visit * Reason Comments eRx-Medication Refill Encounter Details Date Type Department Care Team (Late st Contact Info) Description 07/25/2023 Refill [facility] [address] [place] [address] Brent Horowitz MD [address] [place] [address] Moderate episode of recurrent major depressive disorder (HCC); ALEXIS (generalized anxiety disorder); PTSD (post-traumatic stress disorder) Allergies Active Allergy Reactions Criticality Noted Date Comments Penicillin G 05/14/2012 Hives remote documented as of this encounter (statuses as of 07/28/2023) Medications Medication Sig Dispensed Refills Start Date End Date Status Hydroxychloroquine Sulfate 200 MG Oral Tablet (Plaquenil) Take 2 Tablets by mouth in the morning. 180 Tablet 3 02/25/2023 Active Gabapentin 300 MG Oral Capsule (Neurontin) Take 2 Capsules by mouth at bedtime. 60 Capsule 3 05/20/2023 Active Verapamil HCl ER 240 MG Oral Tablet Extended Release (Isoptin SR)Indications:Int ractable chronic migraine without aura and without status migrainosus Take 1 tablet by mouth once daily 90 Tablet 0 07/14/2023 Active Wegovy 2.4 MG/0.75ML Subcutaneous Solution Auto-injector (Semaglutide-Weigh t Management)Indicat ions:Elevated liver enzymes,Obesity, Class I, BMI 30.0-34.9 (see actual BMI),Snoring,Encou nter for long-term (current) use of medications,Class 2 obesity due to excess calories without serious comorbidity in adult, unspecified BMI Inject 2.4 mg under the skin once a week. 3 mL 5 07/15/2023 Active Aspirin 81 MG Oral Capsule Take by mouth. 0 Active Atorvastatin Calcium 80 MG Oral Tablet (Lipitor) Take 1 Tablet by mouth in the morning. 0 Active Losartan Potassium 25 MG Oral Tablet (Cozaar) Take 1 Tablet by mouth in the morning. 0 Active Nitroglycerin 0.4 MG Sublingual Tablet Sublingual (Nitrostat) Place 1 Tablet under the tongue every 5 minutes as needed for Pain, Chest. 0 Active Prasugrel HCl 10 MG Oral Tablet (Effient) Take 1 Tablet by mouth in the morning. 0 07/07/2023 Active DULoxetine HCl 60 MG Oral Capsule Delayed Release Particles (Cymbalta)Indicati ons:Moderate episode of recurrent major depressive disorder (HCC),ALEXIS (generalized anxiety disorder),PTSD (post-traumatic stress disorder) TAKE 1 CAPSULE BY MOUTH ONCE DAILY . DO NOT CUT, CRUSH, OR CHEW 90 Capsule 1 07/25/2023 Active QUEtiapine Fumarate 100 MG Oral Tablet (SEROquel)Indicati ons:Moderate episode of recurrent major depressive disorder (HCC),ALEXIS (generalized anxiety disorder),PTSD (post-traumatic stress disorder) TAKE 1 TABLET BY MOUTH AT BEDTIME 90 Tablet 1 07/28/2023 Active QUEtiapine Fumarate 100 MG Oral Tablet (SEROquel)Indicati ons:Moderate episode of recurrent major depressive disorder (HCC),ALEXIS (generalized anxiety disorder),PTSD (post-traumatic stress disorder) Take 1 Tablet (100 mg) by mouth at bedtime. 90 Tablet 1 09/09/2022 3 Discontinued DULoxetine HCl 60 MG Oral Capsule Delayed Release Particles (Cymbalta)Indicati ons:Moderate episode of recurrent major depressive disorder (HCC),ALEXIS (generalized anxiety disorder),PTSD (post-traumatic stress disorder) TAKE 1 CAPSULE BY MOUTH ONCE DAILY DO NOT CUT, CRUSH OR CHEW 90 Capsule 1 01/23/2023 3 Discontinued documented as of this encounter (statuses as of 07/28/2023) Active Problems Problem Noted Date Diagnosed Date Greater trochanteric bursitis, left 08/16/2022 Chronic kidney disease, stage 3a 09/17/2021 Overview: Per CKD protocol Arthritis of carpometacarpal (CMC) joints of bot h thumbs 05/26/2020 Tobacco use disorder 12/03/2019 Severe major depression 06/24/2018 Intractable chronic migraine without aura and without status migrainosus 02/16/2018 Primary osteoarthritis of both first carpometaca rpal joints 11/27/2017 Encounter for long-term (current) use of medicat ions 09/25/2017 SLE (systemic lupus erythematosus) 11/06/2015 SS-A antibody positive 02/03/2014 documented as of this encounter (statuses as of 07/28/2023) Resolved Problems Problem Noted Date Diagnosed Date Resolved Date Trochanteric bursitis, right hip 06/04/2018 01/12/2019 Cough 10/28/2017 01/12/2019 Status post functional endos copic sinus surgery 10/28/2016 01/12/2019 Status post nasal surgery 10/21/2016 Deviated nasal septum 10/08/20162018 Hypertrophy of both inferior nasal turbinates 09/24/20 16 01/12/2019 Chronic rhinitis 09/24/2016 01/12/2019 Chronic sinusitis 09/24/2016 01/12/2019 delivery delivered 05/27/2014 01/12/2019 Overview: ICD-10 update of inactive term Encounter for sterilization 05/27/2014 01/12/2019 Overview: ICD-10 update of inactive term Advanced directives, counseling/discussion 05/24/2014 01/12/2019 Overview: No, Advance Directive brochure offered, patient declined. High-risk 01/05/2014 01/13/20 19 Encounter for supervision of other normal 11/11/2013 06/24/2018 Overview: ICD-10 update of inactive term Hx of delivery, currently 11/11/2013 12/03/2019 AMA (advanced maternal age) multigravida 35+ 4 12/03/2019 Hx of section 11/11/201312/03 Hx of pre-eclampsia in prior , currently 11/11/2013 12/03/2019 Lupus 11/06/2015 documented as of this encounter (statuses as of 07/28/2023) Immunizations Name Administration Dates Next Due COVID-19 mRNA, LNP-s, No Pre serve, 2-Dose Series (Pfizer) 08/10/2021,01/26/2021,01/05/2021 Pneumococcal Conjugate Vacc, 13 Valent (Prevnar) 06/24/2018 Pneumococcal Polysaccharide PPV23 (Pneumovax) 10/26/2015 SEASONAL INFLUENZA, PF, 6 M & Above, IM , (FLULAVAL or FLUZONE) 07/15/2023,06/21/2022,07/20/2021,09/08,08/20/2019,06/24/2018,07/11/2017 Seasonal Influenza, Quadriva lent, No Preserve, IM 08/23/2016,10/26/2015 TDAP (age 10 and older)(Boostrix) 03/17/2014 documented as of this encounter Social History Tobacco Use Types Packs/Day Years Used Date Smoking Tobacco: Every Day Cigarettes 0.5 23 Smokeless Tobacco: Never Comments:4 cig Alcohol Use Standard Drinks/Week Comments No 0 (1 standard drink = 0.6 oz pur e alcohol) denies PHQ-2 Answer Date Recorded PHQ Adult Total Score 0 09/13/2022 Sex and Gender Information Value Date Recorded Sex Assigned at Female 08/15/2022 4:05 PM EST Gender Identity Female 08/15/2022 4:05 PM EST Sexual Orientation Straight 08/15/2022 4: 05 PM EST Job Start Date Occupation Industry Not on file Not on file Not on file documented as of this encounter Miscellaneous Notes * Telephone Encounter - Brent Horowitz MD - 07/28/2023 8:01 AM EDT Signed Prescriptions: Disp Refills DULoxetine HCl 60 MG Oral Capsule Delayed *90 Cap*1 Sig: TAKE 1 CAPSULE BY MOUTH ONCE DAILY . DO NOT CUT, CRUSH, OR CHEW Authorizing Provider: BRENT HOROWITZ Ordering User: GERHARD JONES QUEtiapine Fumarate 100 MG Oral Tablet (SE*90 Tab*1 Sig: TAKE 1 TABLET BY MOUTH AT BEDTIME Authorizing Provider: BRENT DOTSON * Telephone Encounter - Gerhard Jones [facility] ED - 07/25/2023 1:34 PM EDT Pending Prescriptions: Disp Refills QUEtiapine Fumarate 100 MG Oral Tablet (SE*90 Tab*1 Sig: TAKE 1 TABLET BY MOUTH AT BEDTIME Signed Prescriptions: Disp Refills DULoxetine HCl 60 MG Oral Capsule Delayed *90 Cap*1 Sig: TAKE 1 CAPSULE BY MOUTH ONCE DAILY . DO NOT CUT, CRUSH, OR CHEW Authorizing Provider: BRENT HOROWITZ User: GERHARD JONES * Telephone Encounter - Gerhard Jones [facility] ED - 07/25/2023 1:34 PM EDT Pending Prescriptions: Disp Refills QUEtiapine Fumarate 100 MG Oral Tablet (SE*90 Tab*1 Sig: TAKE 1 TABLET BY MOUTH AT BEDTIME Signed Prescriptions: Disp Refills DULoxetine HCl 60 MG Oral Capsule Delayed *90 Cap*1 Sig: TAKE 1 CAPSULE BY MOUTH ONCE DAILY . DO NOT CUT, CRUSH, OR CHEW Authorizing Provider: BRENT HOROWITZ Ordering User: GERHARD JONES 07/15/2023 (in office), Visit date not found (telemedicine) 01/23/2024 If no future appointments scheduled, and last appointment is greater than a year ago, please schedule patient for a follow-up appointment Last date the medication was ordered: 09/09/22 Pharmacy: [facility] [place] [place] Is this request for a controlled substance?No Urine Drug Screen:No results found for this or any previous visit. Patient Phone Numbers Labs: Lab Results Component Value Date/Time CREAT 1.3 (H) 07/06/2023 06:03 PM CREAT 1.1 (H) 12/03/2022 04:05 PM CREAT 1.0 08/03/2020 09:50 AM POTASSIUM 3.8 07/06/2023 06:03 PM POTASSIUM 4.0 12/03/2022 04:05 PM POTASSIUM 4.0 08/03/2020 09:50 AM TSH 3.17 12/03/2019 10:17 AM LDLCALC 151 (H) 01/12/2019 08:26 AM ALT 18 07/06/2023 06:03 PM ALT 19 12/03/2022 04:05 PM ALT 19 08/03/2020 09:50 AM documented in this encounter Plan of Treatment Upcoming Encounters Date Type Department Care Team (Late st Contact Info) Description 08/15/2023 9:00 AM EST Office Visit Cardiology [facility] [address] [place] [address] [place] [place], [address] [place] [address] 09/19/2023 1:00 PM EST Office Visit [facility] Disorders [facility] [address] [place] [phone] Raisa Perez, [address] [place] [address] 10/10/2023 1:40 PM EST Office Visit Nephrology, [facility] [address] [facility] [place], [place] [address] Jax Baird MD [address] [facility] [place], [place] [address] 11/20/2023 10:40 AM EST Telemedicine Neurology [facility] [place] [address] [facility] [place] [address] Rita Coy PA-C [address] [facility] [place] [address] 01/02/2024 10:40 AM EDT [facility] [address] [place], [place] [address] Shashi Dawkins MD [address] [place], [place] [address] 01/23/2024 1:20 PM EDT Office Visit [facility] [address] [place] [phone] Brent Horowitz MD [address] [place] [address] Health Maintenance Due Date Last Done Comments Hepatitis B (1 of 3 - 3-dose series) 1980 Pneumococcal Vaccine: Pediatrics (0 to 5 Years) and At-Risk Patients (6 to 64 Years) (3 - PPSV23 or PCV20) 10/26/2020 06/24/2018, 10/26/2015 COVID-19 Vaccine (2022-24 season) 2023 08/10/2021, 01/26/2021, 01/05/2021 Albumin/Creatinine Ratio 08/28/2023 08/28/2022, 060 05/2022 Depression Screening 09/13/2023 09/13/2022 GFR 01/07/2024 07/08/2023, 1012/2022, 07/07/2023, Additional history exists CKD PHOS USE SMARTSET 31128 01/11/2024 01/10/2023, 1 Lipid Panel 01/13/2024 01/12/2019, 06/24/2018 DTaP,Tdap,and Td Vaccines (2 - Td or Tdap) 03/17/2024 03/17/2014 Mammogram 06/06/2024 06/06/2023, 08/02/2022, 05/17/2022, Additional history exists CKD HGB USE SMARTSET 33940 07/08/202407/08, 07/07/2023, 07/06/2023, Additional history exists Pap Smear 09/13/2025 09/13/2022, 08/06, 03/28/2016, Additional history exists Diabetes Screening 07/06/2026 07/06/2023, 1 , 12/03/2022, Additional history exists Cervical Cancer Screening 09/13/2027 HPV/Co-Test 09/13/2027 09/13/2022 Influenza Vaccine (FLU shot) Completed 07/2023, 06/21/2022, 07/20/2021, Additional history exists GARDASIL-HPV IMMUNIZATION SERIES Aged Out No longer eligible based on patient's age to complete this topic MENINGOCOCCAL (MENACTRA/MENVEO) Aged Out No longer eligible based on patient's age to complete this topic documented as of this encounter Medical Devices Not on filedocumented as of this encounter Visit Diagnoses Diagnosis Moderate episode of recurrent major depressive disorder (HCC) ALEXIS (generalized anxiety disorder) Generalized anxiety disorder PTSD (post-traumatic stress disorder) Posttraumatic stress disorder documented in this encounter Advance Directives Latest Code Status on File Code Status Date Activated Date Inactivated Comments Full Code 06/06/2016 9:38 AM 06/06/2016 3:13 PM This or frank reflects the patients wishes and were consensually agreed upon. Code Status History Code Status Date Activated Date Inactivated Comments Full Code 05/26/2014 6:59 AM 05/28/2014 4:41 PM This order reflects the patients wishes and were consensually agreed upon. Care Teams Rn Gynecology Relationship Specialty Start Date End Date Brent Horowitz MD [address] [place] [address] PCP - General Family Medicine 03/13/22 documented as of this encounter
--- OUTSIDE RECORDS SUMMARY | 2023-08-21 22:24 | External Medical Summary | Summary of Care ---
Author Name Unknown Organization [facility] Address [address] [facility] [place] [address] Phone [phone] Care Team Providers Care Welcome Wagon Hostess Name Role Phone Yancy Horowitz MD Primary Care Provid er Reason for Referral * Precert (Within 10 days (routine)) - Authorized Specialty Diagnoses / Procedures Referred By Contac t Referred To Contact Cardiac Studies Diagnoses Ischemic cardiomyopathy Procedures ECHO, COMPLETE (2D), TRANS-THORACIC Unruly Pinto DO [address] [address] Referral ID Status Reason Start Date Expiration Date V isits Requested Visits Authorized [id number] Authorized Precert 08/15/2023 999 999 Reason for Visit * Reason Comments NEW PATIENT * Evaluate & Treat - Unlimited Visits (Within 30 days (routine)) - Authorized Specialty Diagnoses / Procedures Referred By Contact Referred To Contact Cardiovascular Medicine / Cardiology Diagnoses Acute ST elevation myocardial infarction (STEMI) involving right coronary artery (HCC) Yancy Horowitz MD [address] [place] [address] Referral ID Status Reason Start Date Expiration Date Visits Requested Visits Authorized [id number] Authorized Specialty Services Required 3 [phone] Encounter Details Date Type Department Care Team (Late st Contact Info) Description 08/15/2023 9:00 AM EST Office Visit [facility] [place] [place] [address] [place] [address] Unruly Pinto DO [address] [place] [address] Ischemic cardiomyopathy* Allergies Active Allergy Reactions Criticality Noted Date Comments Penicillin G 05/14/2012 Hives remote documented as of this encounter (statuses as of 08/15/2023) Medications Medication Sig Dispensed Refills Start Date End Date Status Hydroxychloroquine Sulfate 200 MG Oral Tablet (Plaquenil) Take 2 Tablets by mouth in the morning. 180 Tablet 3 02/25/2023 Active Gabapentin 300 MG Oral Capsule (Neurontin) Take 2 Capsules by mouth at bedtime. 60 Capsule 3 05/20/2023 Active Verapamil HCl ER 240 MG Oral Tablet Extended Release (Isoptin SR)Indications:Intra ctable chronic migraine without aura and without status migrainosus Take 1 tablet by mouth once daily 90 Tablet 0 07/14/2023 Active Wegovy 2.4 MG/0.75ML Subcutaneous Solution Auto-injector (Semaglutide-Weight Management)Indicatio ns:Elevated liver enzymes,Obesity, Class I, BMI 30.0-34.9 (see actual BMI),Snoring,Encount er for long-term (current) use of medications,Class 2 [...] 60 MG Oral Capsule Delayed Release Particles (Cymbalta)Indication s:Moderate episode of recurrent major depressive disorder (HCC),ALEXIS (generalized anxiety disorder),PTSD (post-traumatic stress disorder) TAKE 1 CAPSULE BY MOUTH ONCE DAILY . DO NOT CUT, CRUSH, OR CHEW 90 Capsule 1 07/25/2023 Active QUEtiapine Fumarate 100 MG Oral Tablet (SEROquel)Indication s:Moderate episode of recurrent major depressive disorder (HCC),ALEXIS (generalized anxiety disorder),PTSD (post-traumatic stress disorder) TAKE 1 TABLET BY MOUTH AT BEDTIME 90 Tablet 1 07/28/2023 Active Nicotine 14 MG/24HR Transdermal Patch 24 Hour (Nicoderm CQ) Place 1 Patch topically on the skin. 0 07/16/2023 Active Nicotine 7 MG/24HR Transdermal Patch 24 Hour (Nicoderm CQ) PLACE 1 PATCH ONTO THE SKIN DAILY FOR 14 DAYS. (START AFTER COMPLETION OF 14MG PATCHES) 0 07/16/2023 Active Nicotine 21 MG/24HR Transdermal Patch 24 Hour (Nicoderm CQ) PLACE 1 PATCH ONTO THE SKIN DAILY FOR 36 DAYS 0 Active documented as of this encounter (statuses as of 08/15/2023) Active Problems Problem Noted Date Diagnosed Date [...] as of this encounter (statuses as of 08/15/2023) Resolved Problems Problem Noted Date Diagnosed Date [...] as of this encounter (statuses as of 08/15/2023) Immunizations Name Administration Dates Next Due COVID-19 [...] Day Cigarettes 0.5 23 Smokeless Tobacco: Never Tobacco Cessation:Ready to Q uit: Yes; Counseling Given: No Comments:4-5 cig/ day, using patches 08/15/23 Alcohol Use Standard Drinks/Week Comments No 0 [...] on file documented as of this encounter Last Filed Vital Signs Vital Sign Reading Time Taken Comments Blood Pressure 118/62 08/15/2023 9:02 AM EST Pulse 60 08/15/2023 9:02 AM EST Temperature - - Respiratory Rate - - Oxygen Saturation - - Inhaled Oxygen Concentration - - Weight 82.8 kg (182 lb 8 oz) 08/15/2023 9:02 AM EST Height - - Body Mass Index 30.37 07/15/2023 2:00 PM EDT documented in this encounter Progress Notes * Unruly Pinto, - 08/15/2023 9:04 AM EST Cardiology Office Visit HPI: 42 year old female with past medical history of CAD (STEMI 07/06/2023: TY and thrombectomy to RCA) Ischemic cardiomyopathy (LVEF 45-50%) SLE on Plaquinol Depression CKD Patient presents to establish care with Cardiology. On 07/06/2023 patient presented to [facility] room with 1 day episode of burning in the chest associated with diaphoresis, nausea, and generalized malaise. EKG done on arrival showed ST elevations in the inferior leads with depressionsin V1 V2 concerning for inferior ST-elevation NE with RV involvement. She was sent to [facility] and underwent a left heart catheterization with a drug-eluting stent and thrombectomy to RCA (do not have all the records to review). Echocardiogram done at the time showed LVEF of 45-50%. Since discharge patient states she is been doing well. She denies chest pain, dyspnea, orthopnea, PND, lower extremity e lizett, palpitations, or syncope. She was not put on a beta-srinivasa due to bradycardia during her hospitalization. No DM/HLD Smokin-5 cigarettes Alcohol: None Family history: Father: CAD 50s Mother: Carotid artery disease Past Medical History: Diagnosis Date Depression Hx of pre-eclampsia in prior , currently 11/11/2013 Hx of delivery, currently 11/11/2013 Lupus (HCC) 2005 Plaquenil Past Surgical History: Procedure Laterality Date ANESTH, CS DELIVERY 2005 & 1994 x 2 DELIVERY ONLY W/ 05/26/2014 DELIVERY AND CARE performed by Gerhard Yi MD at [facility] EXCISE BENIGN LESION, TRUNK, ARM, LEG, 2.1 - 3.0 CM 05/29/2012 Mass L upper inner thigh HYSTEROSCOPY;ENDOMETRIAL ABLAT 06/06/2016 HYSTEROSCOPY ENDOMETRIAL ABLATION performed by Feliciano Juarez DO at [facility] LIGATE/CUT OVIDUCT(S) AT SURGERY 05/26/2014 LIGATION FALLOPIAN TUBE AT TIME OF DELIVERY ADD ON performed by Gerhard Yi MD at [facility] NASAL ENDOSCOPY,TOTAL ETHMOIDECTOMY Bilateral 10/18/2016 NASAL SINUS ENDOSCOPY WITH ETHMOIDECTOMY TOTAL performed by Mikhail Barlow II, MD at [facility] NASAL ENDOSCOPY/EXPLOR MAXIL SINUS 10/18/2016 NASAL SINUS ENDOSCOPY MAXILLARY ANTROSTOMY performed by Mikhail Barlow II, MD at [facility] REMOVAL OF TURBINATE BONES Bilateral 10/18/2016 SUBMUCOUS RESECTION INFERIOR TURBINATE performed by Mikhail Barlow II, MD at [facility] REPAIR OF NASAL SEPTUM Bilateral 10/18/2016 SEPTOPLASTY performed by Mikhail Barlow II, MD at [facility] REPAIR/REVISE WRIST JOINT(S) Right 12/20/2020 ARTHROPLASTY INTERPOSITION CARPAL JOINTS performed by Praneeth Canales MD at [facility] STEREOTACTIC CRANIAL EXTRADURAL NAVIGATION Bilateral 10/18/2016 STEREOTACTIC CRANIAL EXTRADURAL NAVIGATION performed by Mikhail Barlow II, MD at [facility] Social History Socioeconomic History Marital status: Spouse name: Number of children: 3 Years of education: 11 Highest education level: Not on file Occupational History Occupation: homemaker Employer: [employer] ([place]) Tobacco Use Smoking status: Every Day Packs/day: 0.50 Years: 23.00 Additional pack years: 0.00 Total pack years: 11.50 Types: Cigarettes Smokeless tobacco: Never Tobacco comments: 4-5 cig/ day, using patches 08/15/23 Vaping Use Vaping Use: Never used Substance and Sexual Activity Alcohol use: No Comment: denies Drug use: No Comment: denies Sexual activity: Yes Partners: Male control/protection: Surgical Comment: BTL Other Topics Concern Not on file Social History Narrative Not on file Social Determinants of Health Financial Resource Strain: Not on file Food Insecurity: Not on file Transportation Needs: Not on file Physical Activity: Not on file Stress: Not on file Social Connections: Not on file Intimate Partner Violence: Not on file Housing Stability: Not on file Review of patient's allergies indicates: Allergen Reactions Penicillin G Hives remote Outpatient Medications Marked as Taking for the 08/15/23 encounter (Office Visit) with Unruly Pinto, Medication Sig Nicotine 14 MG/24HR Transdermal Patch 24 Hour (Nicoderm CQ) Place 1 Patch topically on the skin. Nicotine 7 MG/24HR Transdermal Patch 24 Hour (Nicoderm CQ) PLACE 1 PATCH ONTO THE SKIN DAILY FOR 14DAYS. (START AFTER COMPLETION OF 14MG PATCHES) QUEtiapine Fumarate 100 MG Oral Tablet (SEROquel) TAKE 1 TABLET BY MOUTH AT BEDTIME DULoxetine HCl 60 MG Oral Capsule Delayed Release Particles (Cymbalta) TAKE 1 CAPSULE BY MOUTH ONCEDAILY . DO NOT CUT, CRUSH, OR CHEW Aspirin 81 MG Oral Capsule Take by mouth. Atorvastatin Calcium 80 MG Oral Tablet (Lipitor) Take 1 Tablet by mouth in the morning. Losartan Potassium 25 MG Oral Tablet (Cozaar) Take 1 Tablet by mouth in the morning. Prasugrel HCl 10 MG Oral Tablet (Effient) Take 1 Tablet by mouth in the morning. Wegovy 2.4 MG/0.75ML Subcutaneous Solution Auto-injector (Semaglutide-Weight Management) Inject 2.4mg under the skin once a week. Verapamil HCl ER 240 MG Oral Tablet Extended Release (Isoptin SR) Take 1 tablet by mouth once daily Gabapentin 300 MG Oral Capsule (Neurontin) Take 2 Capsules by mouth at bedtime. Hydroxychloroquine Sulfate 200 MG Oral Tablet (Plaquenil) Take 2 Tablets by mouth in the morning. Review of Systems: Constitutional: No fevers, sweats, or chills Neck: Negative and No known carotid artery disease Pulmonary: No shortness or breath Cardiac: No chest pain, No angina, No syncope, No palpitations, No shortness of breath, No orthopnea, No paroxysmal nocturnal dyspnea, No dyspnea on exertion, and No edema GI/Abd: No melana or hematochezia Vascular: No claudication Hematologic: No abnormal bleeding Musculoskeletal: No pain, redness or swelling on the joints Skin: no rash Neurologic: No TIA symptoms, No CVA symptoms, No syncope, No near syncope, and No orthostasis, no seizures BP 118/62 | Pulse 60 | Wt 82.8 kg (182 lb 8 oz) | BMI 30.37 kg/m | BSA 1.95 m GEN: NAD, AAOX3 HEENT: No JVD, no carotid bruits CVS: Nl1 S1, S2 no murmurs Chest: CTA B/L No wheezing, rhonchi, rales Abd: Soft NT, ND, +BS Ext: no edema ECG: Sinus bradycardia with nonspecific ST abnormalities, and QTC 438 milliseconds Assessment 1. CAD 2. Ischemic cardiomyopathy 3. SLE 4. Active tobacco use Plan - Patient doing well today. She denies chest pain, dyspnea, or syncope. On clinical exam she is euvolemic. She is tolerating aspirin and prasugrel well. She denies any abnormal bleeding. I would a long discussion with patient about the importance of dual antiplatelet therapy and she should be on this uninterrupted for 1 year. She can not stop without discussing with Cardiology. - She was started on Lipitor after her NE. I did notice that her LDL was elevated at 207 back in 2018 with subsequent decreased to 151 in 2019 there was patient states that she lost a considerable lateral weight. There is a strong family history of atherosclerotic possibly a genetic component to her hyperlipidemia. Patient will consider genetic testing. We do not have a baseline lipid panel [id number]. Blood work has been ordered for patient by her PCP. Will see what lipid panel shows and adjust medications accordingly. If we are not at goal will consider Zetia versus PCSK9 inhibitor. - Her echocardiogram during her hospitalization at [facility] showed LVEF of 45-50%. Will repeat echocardiogram to reassess her ejection fraction. She is on verapamil which patient takes for migraines has been taking this for many years. Will tentatively continue this for now until we get the echocardiogram and hoping that there is an improvement in ejection fraction. - Patient unfortunately continues to smoke but has been cutting down and is down to 4-5 cigarettes a day and she is actively working on trying to reduce this to no cigarettes. Advised patient that she continues to smoke she is high risk for NE/CHF/COPD/cancer/. - Patient would like to establish care [facility] Cardiology as this is closer for her. She will need a 2 month follow-up with an echocardiogram done at [facility]. documented in this encounter Nursing Notes * Dawna Lizarraga LPN - 08/15/2023 9:01 AM EST Patient was identified by name and date of . Name: Saqib Belle Date of : (1980). Examination Room: 6 Reason for Visit: Chief Complaint Patient presents with NEW PATIENT Interim Hospitalization(s): YES [facility] Interim Emergency room visit(s): NO Chest Pain: No SOB: No Problems/Concerns: No Medications reviewed and are up to date via: Patient's memory Would you like to sign up for [facility]? ALREADY ACTIVE Patient was instructed to not get up on the exam table/exam chair until directed and assisted by their provider; patient is to remain seated in the chair/ wheelchair/ exam table/ exam chair for fall prevention and safety reasons. Patient is aware to have assistance to step down off exam table/exam chair with personnel. Patient voiced full comprehension of instructions. Dawna Lizarraga LPN 9:01 AM 08/15/2023 documented in this encounter Plan of Treatment Upcoming Encounters Date Type Department Care Team (Late st Contact Info) Description 09/19/2023 1:00 PM EST Office Visit [facility] [place] [address] [place] [phone] Raisa Perez DO [address] [place] [address] 10/10/2023 1:40 PM EST Office Visit Nephrology, [facility] [address] [place] [address] Jax Baird MD [address] [facility] [address] [place] [address] 10/24/2023 2:00 PM EST Cardiac Studies Cardiac Studies, [facility] [address] [facility] [place] [address] 10/30/2023 10:00 AM EST Office Visit Cardiology, [facility] [address] [facility] [place] [address] Arti Diaz PA-C [address] [place] [address] 11/20/2023 10:40 AM EST Telemedicine Neurology [facility] [address] [place] [address] Rita Coy PA-C [address] [place] [address] 01/02/2024 10:40 AM EDT Office Visit Rheumatology [facility] [address] [facility] [place], [place] [address] Shashi Dawkins MD [address] [place], [place] [address] 01/23/2024 1:20 PM EDT Office Visit [facility] [address] [place] [address] Yancy Horowitz MD [address] [place] [address] Scheduled Orders Name Type Priority Associated Diagnoses Orde r Schedule ECHO, COMPLETE (2D), TRANS-THORACIC Echocardiology Routine Ischemic cardiomyopathy Expected: 08/15/2023 (Approximate), Expires: 09/14/2025 Health Maintenance Due Date Last Done Comments Hepatitis B (1 of 3 - 3-dose series) 1980 Pneumococcal Vaccine: Pediatrics (0 to 5 Years) and At-Risk Patients (6 to 64 Years) (3 - PPSV23 or PCV20) 10/26/2020 06/24/2018, 10/26/2015 COVID-19 Vaccine ( season) 2023 08/10/2021, 01/26/2021, 01/05/2021 Albumin/Creatinine Ratio 08/28/2023 08/28/2022, 060 05/2022 Depression Screening 09/13/2023 09/13/2022 GFR 01/07/2024 07/08/2023, 1012/2022, 07/07/2023, Additional history exists CKD PHOS USE SMARTSET 44485 01/11/2024 01/10/2023, 1 Lipid Panel 01/13/2024 01/12/2019, 06/24/2018 DTaP,Tdap,and Td Vaccines (2 - Td or Tdap) 03/17/2024 03/17/2014 Mammogram 06/06/2024 06/06/2023, 05/07, 05/17/2022, Additional history exists CKD HGB USE SMARTSET 29536 07/08/202407/08, 07/07/2023, 07/06/2023, Additional history exists Pap [...] as of this encounter Visit Diagnoses Diagnosis Ischemic cardiomyopathy- Primary Other specified forms of chronic ischemic heart disease documented in this encounter Advance Directives Latest [...] and were consensually agreed upon. Care Teams Welcome Wagon Hostess Relationship Specialty Start Date End Date Yancy Horowitz MD [address] [place] [facility] [place] [address] PCP - General Family Medicine 03/13/22 documented as of this encounter"
--- OUTSIDE RECORDS SUMMARY | 2023-08-21 22:24 | External Medical Summary | Summary of Care ---
Author Name Unknown Organization [facility] Address [address] [place] [address] Phone [phone] Care Team Providers Care Extension Educator Name Role Phone Yancy Horowitz MD Primary Care Provid er Reason for Visit * Reason Onset Date Comments Referral 07/25/2023 Encounter Details Date Type Department Care Team (Late st Contact Info) Description 07/25/2023 New Patient Triage (ONCOLOGY SOCIAL WORKER USE ONLY) Cardiology [facility] [place] [address], [place] [id number] Cierra Higginbotham, ANIMAL HOSPITAL OFFICE SUPERVISOR [address] [place] [address] Referral Allergies Active Allergy Reactions Criticality Noted Date Comments Penicillin G 05/14/2012 Hives remote documented as of this encounter (statuses as of 08/01/2023) Medications Medication Sig Dispensed Refills Start Date End Date Status Hydroxychloroquine Sulfate 200 MG Oral Tablet (Plaquenil) Take 2 Tablets by mouth in the morning. 180 Tablet 3 02/25/2023 Active Gabapentin 300 MG Oral Capsule (Neurontin) Take 2 Capsules by mouth at bedtime. 60 Capsule 3 05/20/2023 Active Verapamil HCl ER 240 MG Oral Tablet Extended Release (Isoptin SR)Indications:Intrac table chronic migraine without aura and without status migrainosus Take 1 tablet by mouth once daily 90 Tablet 0 07/14/2023 Active Wegovy 2.4 MG/0.75ML Subcutaneous Solution Auto-injector (Semaglutide-Weight Management)Indication s:Elevated liver enzymes,Obesity, Class I, BMI 30.0-34.9 (see actual BMI),Snoring,Encounte r for long-term (current) use of medications,Class 2 [...] 60 MG Oral Capsule Delayed Release Particles (Cymbalta)Indications :Moderate episode of recurrent major depressive disorder (HCC),ALEXIS (generalized anxiety disorder),PTSD (post-traumatic stress disorder) TAKE 1 CAPSULE BY MOUTH ONCE DAILY . DO NOT CUT, CRUSH, OR CHEW 90 Capsule 1 07/25/2023 Active QUEtiapine Fumarate 100 MG Oral Tablet (SEROquel)Indications :Moderate episode of recurrent major depressive disorder (HCC),ALEXIS (generalized anxiety disorder),PTSD (post-traumatic stress disorder) TAKE 1 TABLET BY MOUTH AT BEDTIME 90 Tablet 1 07/28/2023 Active documented as of this encounter (statuses as of 08/01/2023) Active Problems Problem Noted Date Diagnosed Date [...] as of this encounter (statuses as of 08/01/2023) Resolved Problems Problem Noted Date Diagnosed Date [...] as of this encounter (statuses as of 08/01/2023) Immunizations Name Administration Dates Next Due COVID-19 mRNA, LNP-s, No Pre serve, 2-Dose Series ([employer]) 08/10/2021,01/26/2021,01/05/2021 Pneumococcal Conjugate Vacc, 13 Valent (Prevnar) [...] on file documented as of this encounter Progress Notes * Amanda Hines DNP - 08/01/2023 1:05 AM EDT Does patient need to be seen?: Yes Modality: Office visit Urgency: Within 30 days (routine) Discussed care plan with patient or proxy?: Yes scheduled Communicated with patient on Date (mm/dd/yyyy): 07/25/2023 at Time ([facility]): 1036 Amanda Hines DNP [place] [address] [facility] * Nicci Loredo RN - 07/25/2023 10:36 AM EDT New Patient Triage What is the diagnosis/reason for referral?: Acute ST elevation myocardial infarction (STEMI) involving right coronary artery (HCC) [I21.11] Enter order ID here: [id number] Specialty specific documentation: Cardiology Structural Heart Discussed care plan with patient or proxy?: Yes via Profind message sent to patient. Appt scheduledfor 08/15/23 Communicated with patient on Date (mm/dd/yyyy): 07/25/2023 at Time ([facility]): 1036 PCP/REFERRING Yancy Horowitz MD Saqib Belle is a 42 year old female with PMHx SLE / CKD 3 / tobacco use / obesity / dyspepsia -Here for MELIDA - admitted at [facility] the following dates 07/06- 07/09 Presented with: left sided chest pain - s/p cardiac cath TY RCA x 1 - on DAPT - and BB not tolerated. Echo showed inferior akinesia. Changes to chronic medications. 1 - add DAPT (asa and effient) 2 - add losartan low dose 3 - add nitro prn She is recovering well, BP in goal range. Has follow up telemed appt with cardiology tomorrow but needs to establish locally with [facility] - referral placed. Nursing will get notes from [facility] for our review. EKG/ECHO/ZIO/CARDIAC TESTING 07/06/23 EKG CONCLUSIONS: Sinus bradycardia ST elevation consider inferior injury or acute infarct Prolonged QT interval or tu fusion, consider myocardial disease, electrolyte imbalance, or drug effects When compared with ECG of 06-JUL-2023 17:57, No significant change was found LABS Component Latest Ref Rng 07/06/2023 BUN 6 - 20 mg/dL 11 Creatinine 0.5 - 1.0 mg/dL 1.3 (H) Estimated Glomerular Filtration Rate >=60 mL/min 52 (L) Sodium 135 - 146 mmol/L 138 Potassium 3.5 - 5.1 mmol/L 3.8 Chloride 98 - 107 mmol/L 104 CO2 22 - 32 mmol/L 20 (L) Anion Gap 7 - 15 mmol/L 14 Glucose 70 - 120 mg/dL 148 (H) Albumin 3.5 - 4.4 g/dL 4.3 AST 10 - 35 U/L 22 Alkaline Phosphatase 35 - 130 U/L 86 Bilirubin, Total <=1.2 mg/dL 0.8 Calcium 8.4 - 10.2 mg/dL 10.1 Protein, Total 6.0 - 8.3 g/dL 7.4 ALT 10 - 35 U/L 18 (H) High (L) Low MEDICATIONS Aspirin 81 MG Oral Capsule Atorvastatin Calcium 80 MG Oral Tablet (Lipitor) Losartan Potassium 25 MG Oral Tablet (Cozaar) Nitroglycerin 0.4 MG Sublingual Tablet Sublingual (Nitrostat) Prasugrel HCl 10 MG Oral Tablet (Effient) Wegovy 2.4 MG/0.75ML Subcutaneous Solution Auto-injector (Semaglutide-Weight Management) Verapamil HCl ER 240 MG Oral Tablet Extended Release (Isoptin SR) Gabapentin 300 MG Oral Capsule (Neurontin) Hydroxychloroquine Sulfate 200 MG Oral Tablet (Plaquenil) DULoxetine HCl 60 MG Oral Capsule Delayed Release Particles (Cymbalta) QUEtiapine Fumarate 100 MG Oral Tablet (SEROquel) HOSPITALIZATIONS/CONSULTS Mc[facility]osh 07/06-07/09/2023 Records not available HOSPITAL TESTING Records not available CARE EVERYWHERE CHARTS/INFO/TESTING See CareEverywhere documented in this encounter Plan of Treatment Upcoming Encounters Date Type Department Care Team (Late st Contact Info) Description 08/15/2023 9:00 AM EST Office Visit Cardiology [place] [place] [address] [place] [address] Unruly Pinto DO [address] [facility] [place] [address] 09/19/2023 1:00 PM EST Office Visit Sleep Disorders Ctr Haydee Pacheco [place] [address] [facility] [place] [phone] Raisa Perez DO [address] [facility] [place] [address] 10/10/2023 1:40 PM EST Office Visit Nephrology, [facility] [place] [address] [place] [address] Jax Baird MD [address] [place] [address] 11/20/2023 10:40 AM EST Telemedicine Neurology [facility] [place] [address] [place] [address] Rita Coy PA-C [address] [place], [place] [address] 01/02/2024 10:40 AM EDT Office Visit Rheumatology [facility] [address] [facility] [place], [place] [address] Shashi Dawkins MD [address] [facility] [place], [place] [address] 01/23/2024 1:20 PM EDT Office Visit [facility] [address] [place] [address] Yancy Horowitz MD [address] [place] [address] Health Maintenance Due Date Last Done Comments Hepatitis B (1 of 3 - 3-dose series) 1980 Pneumococcal Vaccine: Pediatrics (0 to 5 Years) and At-Risk Patients (6 to 64 Years) (3 - PPSV23 or PCV20) 10/26/2020 06/24/2018, 10/26/2015 COVID-19 Vaccine ( - 2022- season) 2023 08/10/2021, 01/26/2021, 01/05/2021 Albumin/Creatinine Ratio 08/28/2023 08/28/2022, 0605/2022 Depression Screening 09/13/2023 09/13/2022 GFR 01/07/2024 07/08/2023, 1012/2022, 07/07/2023, Additional history exists CKD PHOS USE SMARTSET 96381 01/11/2024 01/10/2023, 1 Lipid Panel 01/13/2024 01/12/2019, 06/24/2018 DTaP,Tdap,and Td Vaccines (2 - Td or Tdap) 03/17/2024 03/17/2014 Mammogram 06/06/2024 06/06/2023, 05/07, 05/17/2022, Additional history exists CKD HGB USE SMARTSET 40487 07/08/202407/08, 07/07/2023, 07/06/2023, Additional history exists Pap [...] Not on filedocumented as of this encounter Advance Directives Latest Code Status [...] and were consensually agreed upon. Care Teams Extension Educator Relationship Specialty Start Date End Date Yancy Horowitz MD [address] [facility] [place] [address] PCP - General Family Medicine 03/13/22 documented as of this encounter
--- OUTSIDE RECORDS SUMMARY | 2023-08-21 22:24 | External Medical Summary | Summary of Care ---
Author Name Unknown Organization [facility] Address [address] [facility] [place] [address] Phone [phone] Care Team Providers Care Rotary Operator Name Role Phone Yancy Horowitz MD Primary Care Provid er Encounter Details Date Type Department Care Team Description 07/06/2023 CardioDiagnostic Study [facility] [place] [address] [place] [address] Erica Miranda MD [facility] [place] [address] EKG Report Allergies Active Allergy Reactions Severity Noted Date Comments Penicillin G 05/14/2012 Hives remote documented as of this encounter (statuses as of 07/23/2023) Medications Medication Sig Dispensed Refills Start Date End Date Status QUEtiapine Fumarate 100 MG Oral Tablet (SEROquel)Indication s:Moderate episode of recurrent major depressive disorder (HCC),ALEXIS (generalized anxiety disorder),PTSD (post-traumatic stress disorder) Take 1 Tablet (100 mg) by mouth at bedtime. 90 Tablet 1 09/09/2022 Active DULoxetine HCl 60 MG Oral Capsule Delayed Release Particles (Cymbalta)Indication s:Moderate episode of recurrent major depressive disorder (HCC),ALEXIS (generalized anxiety disorder),PTSD (post-traumatic stress disorder) TAKE 1 CAPSULE BY MOUTH ONCE DAILY DO NOT CUT, CRUSH OR CHEW 90 Capsule 1 01/23/2023 Active Hydroxychloroquine Sulfate 200 MG Oral Tablet (Plaquenil) Take 2 Tablets by mouth in the morning. 180 Tablet 3 02/25/2023 Active Gabapentin 300 MG Oral Capsule (Neurontin) Take 2 Capsules by mouth at bedtime. 60 Capsule 3 05/20/2023 Active documented as of this encounter (statuses as of 07/23/2023) Active Problems Problem Noted Date Greater trochanteric bursitis, left 08/06 Chronic kidney disease, stage 3a 021 Overview: Per CKD protocol Arthritis of carpometacarpal (CMC) joint s of both thumbs 05/26/2020 Tobacco use disorder 12/03/2019 Severe major depression 06/24/2018 Intractable chronic migraine without aur a and without status migrainosus 02/16/2018 Primary osteoarthritis of both first car pometacarpal joints 11/27/2017 Encounter for long-term (current) use of medications 09/25/2017 SLE (systemic lupus erythematosus) 11/06 SS-A antibody positive 02/03/2014 documented as of this encounter (statuses as of 07/23/2023) Resolved Problems Problem Noted Date Resolved Date Trochanteric bursitis, right hip 06/04/2018 01/12/2019 Cough 10/28/2017 01/12/2019 Status post functional endoscopic sinus surgery 10/28/2016 01/12/2019 Status post nasal surgery 10/21/20162018 Deviated nasal septum 10/08/2016 01/12/2019 Hypertrophy of both inferior nasal turbinates 01/12/2019 Chronic rhinitis 09/24/2016 01/12/2019 Chronic sinusitis 09/24/2016 01/12/2019 delivery delivered 05/27/201406/2019 Overview: ICD-10 update of inactive term Encounter for sterilization 05/27/201406/2019 Overview: ICD-10 update of inactive term Advanced directives, counseling/discussion 05/2401/12/2019 Overview: No, Advance Directive brochure offered, patient declined. High-risk 01/05/2014 01/12/2019 Encounter for supervision of other normal pregna ncy 11/11/2013 06/24/2018 Overview: ICD-10 update of inactive term Hx of delivery, currently 11/1112/03/2019 AMA (advanced maternal age) multigravida 35+ 03/201412/03/2019 Hx of section 11/11/2013 0 Hx of pre-eclampsia in prior , currentl y 11/11/2013 12/03/2019 Lupus 11/06/2015 documented as of this encounter (statuses as of 07/23/2023) Immunizations Name Administration Dates Next Due COVID-19 mRNA, LNP-s, No Pre serve, 2-Dose Series (Pfizer) 08/10/2021,01/26/2021,01/05/2021 Pneumococcal Conjugate Vacc, 13 Valent (Prevnar) 06/24/2018 Pneumococcal Polysaccharide PPV23 (Pneumovax) 10/26/2015 SEASONAL INFLUENZA, PF, 6 M & Above, IM , (FLULAVAL or FLUZONE) 06/21/2022,07/20/2021,09/08/2020,08/20,06/24/2018,07/11/2017 Seasonal Influenza, Quadriva lent, No Preserve, IM 08/23/2016,10/26/2015 TDAP (age 10 and older)(Boostrix) 03/17/2014 documented as of this encounter Social History Tobacco Use Types Packs/Day Years Used Date Smoking Tobacco: Every Day Cigarettes 0.5 23 Smokeless Tobacco: Never Comments:4 cig Alcohol Use Standard Drinks/Week Comments No 0 (1 standard drink = 0.6 oz pur e alcohol) denies Sex Assigned at Date Recorded Female 08/15/2022 4:[address] Job Start Date Occupation Industry Not on file Not on file Not on file documented as of this encounter Procedure Notes * Toni Mo MD - 07/06/2023 5:57 PM EDTAssociated Order(s): EKG REPORT REASON FOR STUDY: CHEST PAIN CONCLUSIONS: Age and gender specific ECG analysis Sinus bradycardia ST elevation consider inferior injury or acute infarct ACUTE OH / STEMI Consider right ventricular involvement in acute inferior infarct Abnormal ECG No previous ECGs available Ventricular Rate: 58 Atrial Rate: 58 WI Interval: 150 QRS Duration: 100 QT/QTc: 488/479 ms P-R-T Souris: 53 : 73 : 100 degrees documented in this encounter Plan of Treatment Upcoming Encounters Date Type Specialty Care Team Description 08/15/2023 Office Visit Cardiology Unruly Pinto, DO [address] [place] [address] 09/19/2023 Office Visit Sleep Disorders Raisa Perez DO [address] [place] [address] 10/10/2023 Office Visit Nephrology Jax Baird MD [address] [place] [address] 11/20/2023 Telemedicine Neurology Rita Coy PA-C [address] [place] [address] 01/02/2024 Office Visit Rheumatology Shashi Dawkins MD [facility] [place], [place] [address] 01/23/2024 Office Visit Family Medicine Yancy Horowitz MD [address] [place] [address] Health Maintenance Due Date Last Done Comments Hepatitis B (1 of 3 - 3-dose series) 1980 Pneumococcal Vaccine: Pediatrics (0 to 5 Years) and At-Risk Patients (6 to 64 Years) (3 - PPSV23 or PCV20) 10/26/2020 06/24/2018, 10/26/2015 COVID-19 Vaccine ( - 2022-24 season) 2023 08/10/2021, 01/26/2021, 01/05/2021 Albumin/Creatinine Ratio 08/28/2023 08/28/2022, 06/0 05/2022 Depression Screening 09/13/2023 09/13/2022 GFR 01/07/2024 07/08/2023, 10/12/2022, 07/07/2023, Additional history exists CKD PHOS USE SMARTSET 32634 01/11/2024 01/10/2023, 1 Lipid Panel 01/13/2024 01/12/2019, 06/24/2018 DTaP,Tdap,and Td Vaccines (2 - Td or Tdap) 03/17/2024 03/17/2014 Mammogram 06/06/2024 06/06/2023, 05/07, 05/17/2022, Additional history exists CKD HGB USE SMARTSET 51118 07/08/202407/08, 07/07/2023, 07/06/2023, Additional history exists Pap [...] Not on filedocumented as of this encounter Procedures Procedure Name Priority Date/Time Associated Diagnosis Comments EKG REPORT 07/06/2023 5:57 PM EDT documented in this encounter Results * EKG REPORT (07/06/2023 5:57 PM EDT) 07/06/2023 5:57 PM EDT Procedure Note Toni Mo MD - 07/06/2023 5:57 PM EDT REASON FOR STUDY: CHEST PAIN CONCLUSIONS: Age and gender specific ECG analysis Sinus bradycardia ST elevation consider inferior injury or acute infarct ACUTE OH / STEMI Consider right ventricular involvement in acute inferior infarct Abnormal ECG No previous ECGs available Ventricular Rate: 58 Atrial Rate: 58 WI Interval: 150 QRS Duration: 100 QT/QTc: 488/479 ms P-R-T Souris: 53 : 73 : 100 degrees Erica Miranda MD EKG documented in this encounter Advance Directives Latest Code Status on File Code Status Date Activated Date Inactivated Comments Full Code 06/06/2016 9:38 AM 06/06/2016 3:13 PM This or frnak reflects the patients wishes and were consensually agreed upon. Code Status History Code Status Date Activated Date Inactivated Comments Full Code 05/26/2014 6:59 AM 05/28/2014 4:41 PM This order reflects the patients wishes and were consensually agreed upon. Care Teams Rotary Operator Relationship Specialty Start Date End Date Yancy Horowitz MD [address] [place] [facility] [place] [address] PCP - General Family Medicine 03/13/22 documented as of this encounter
--- OUTSIDE RECORDS SUMMARY | 2023-08-21 22:24 | External Medical Summary ---
Author Name Unknown Address Unknown Organization K01:[facility] [place] [address] [place] [address] Laboratory Report Ordering Provider Test Date Status FRANCO KENNEDYO 08/15/2023 09:42:36 Final Observation Date Value Abnormality Reference (Units ) Status Triglyceride 08/15/2023 09:42:36 113 <=174 ( mg/dL) Final Triglyceride Reference Range s (mg/dL):
<150 Acceptable
150-174 Borderline high
175-499 High
>=500 Very high Cholesterol 08/15/2023 09:42:36 144 <200 (mg /dL) Final Total Cholesterol Reference Ranges (mg/dL):
<200 Desirable
200-239 Borderline high
>=240 High HDL 08/15/2023 09:42:36 45 Below low normal >49 (mg/dL) Final HDL Cholesterol Reference Ra nges (mg/dL):
>=60 High (Desirable)
<50 Low (Undesirable) For Females
<40 Low (Undesirable) For Males NON-HDL CHOLESTEROL 08/15/2023 09:42:36 99 <=159 (mg/dL) Final Non-HDL Cholesterol Referenc e Range (mg/dL):
<100 Target level for high risk ASCVD patient
<130 Optimal for general population
130-159 Near optimal for general population
160-189 Borderline High
190-219 High
>=220 Very High LDL, (calculated) 08/15/2023 09:42:36 76 <= 129 (mg/dL) Final LDL Cholesterol Reference Ra nges (mg/dL):
<70 Target level for high risk ASCVD patient
<100 Optimal for general population
100-129 Near optimal for general population
130-159 Borderline high
160-189 High
>=190 Very high Performing Location [facility] [place] - [address] [facility] [address]
--- OUTSIDE RECORDS SUMMARY | 2023-08-21 22:24 | External Medical Summary | Summary of Care ---
Author Name Unknown Organization [facility] Address [address] [facility] [place] [address] Phone [phone] Care Team Providers Care Imaging Analyst Name Role Phone Yancy Horowitz MD Primary Care Provid er Reason for Visit * Reason Comments eRx-Medication Refill Encounter Details Date Type Department Care Team (Late st Contact Info) Description 08/16/2023 Refill Neurology [facility] [address] [place] [address] Rita Coy PA-C [address] [place] [address] Intractable chronic migraine without aura and without status migrainosus Allergies Active Allergy Reactions Criticality Noted Date Comments Penicillin G 05/14/2012 Hives remote documented as of this encounter (statuses as of 08/19/2023) Medications Medication Sig Dispensed Refills Start Date End Date Status Hydroxychloroquin e Sulfate 200 MG Oral Tablet (Plaquenil) Take 2 Tablets by mouth in the morning. 180 Tablet 3 02/25/2023 Active Gabapentin 300 MG Oral Capsule (Neurontin) Take 2 Capsules by mouth at bedtime. 60 Capsule 3 05/20/2023 Active Wegovy 2.4 MG/0.75ML Subcutaneous Solution Auto-injector (Semaglutide-Weig ht Management)Indica tions:Elevated liver enzymes,Obesity, Class I, BMI 30.0-34.9 (see actual BMI),Snoring,Enco unter for long-term (current) use of medications,Class 2 [...] 60 MG Oral Capsule Delayed Release Particles (Cymbalta)Indicat ions:Moderate episode of recurrent major depressive disorder (HCC),ALEXIS (generalized anxiety disorder),PTSD (post-traumatic stress disorder) TAKE 1 CAPSULE BY MOUTH ONCE DAILY . DO NOT CUT, CRUSH, OR CHEW 90 Capsule 1 07/25/2023 Active QUEtiapine Fumarate 100 MG Oral Tablet (SEROquel)Indicat ions:Moderate episode of recurrent major depressive disorder (HCC),ALEXIS [...] SKIN DAILY FOR 36 DAYS 0 Active Verapamil HCl ER 240 MG Oral Tablet Extended Release (Isoptin SR)Indications:In tractable chronic migraine without aura and without status migrainosus Take 1 tablet by mouth once daily 90 Tablet 0 08/19/2023 Active Verapamil HCl ER 240 MG Oral Tablet Extended Release (Isoptin SR)Indications:In tractable chronic migraine without aura and without status migrainosus Take 1 tablet by mouth once daily 90 Tablet 0 07/14/2023 3 Discontinued documented as of this encounter (statuses as of 08/19/2023) Active Problems Problem Noted Date Diagnosed Date [...] as of this encounter (statuses as of 08/19/2023) Resolved Problems Problem Noted Date Diagnosed Date [...] 12/03/2019 AMA (advanced maternal age) multigravida 35+ 02/06/201 4 12/03/2019 Hx of section 11/11/201312/03 Hx of pre-eclampsia in prior , currently 11/11/2013 12/03/2019 Lupus 11/06/2015 documented as of this encounter (statuses as of 08/19/2023) Immunizations Name Administration Dates Next Due COVID-19 [...] Day Cigarettes 0.5 23 Smokeless Tobacco: Never Comments:4-5 cig/ day, using patches 08/15/23 Alcohol [...] encounter Miscellaneous Notes * Telephone Encounter - Deanna Shaver PA-C - 08/19/2023 9:43 AM ESTSigned Prescriptions: Disp Refills Verapamil HCl ER 240 MG Oral Tablet Extend*90 Tab*0 Sig: Take 1 tablet by mouth once daily Authorizing Provider: DEANNA SHAVER * Telephone Encounter - Simran Mullen, A-TEX - 08/19/2023 8:14 AM EST Pending Prescriptions: Disp Refills Verapamil HCl ER 240 MG Oral Tablet Extend*90 Tab*0 Sig: Take 1 tablet by mouth once daily * Telephone Encounter - Koki Ricks CPhT - 08/19/2023 8:07 AM ESTPending Prescriptions: Disp Refills Verapamil HCl ER 240 MG Oral Tablet Extend*90 Tab*0 Sig: Take 1 tablet by mouth once daily * Telephone Encounter - Koki Ricks CPhT - 08/19/2023 8:06 AM EST Did you pend patient's preferred pharmacy and medication before forwarding?yes Pharmacy: [facility] Pending Prescriptions: Disp Refills Verapamil HCl ER 240 MG Oral Tablet Exten*90 Tab*0 Sig: Take 1 tablet by mouth once daily Last Visit: 01/08/2019 (in office), 05/15/2023 (telemedicine) Next Visit: 11/20/2023 If no future appointments scheduled, and last appointment is greater than a year ago, please schedule patient for a follow-up appointment Last date the medication was ordered: 07.14.23 Is this request for a controlled substance?No Urine Drug Screen:No results found for this or any previous visit. Patient Phone Numbers Labs: Lab Results Component Value Date/Time CREAT 1.3 (H) 08/15/2023 09:42 AM CREAT 1.0 08/03/2020 09:50 AM POTASSIUM 4.1 08/15/2023 09:42 AM POTASSIUM 4.0 08/03/2020 09:50 AM TSH 3.17 12/03/2019 10:17 AM LDLCALC 76 08/15/2023 09:42 AM LDLCALC 151 (H) 01/12/2019 08:26 AM ALT 18 08/15/2023 09:42 AM ALT 19 08/03/2020 09:50 AM documented in this encounter Plan of Treatment Upcoming Encounters Date Type Department Care Team (Late st Contact Info) Description 09/19/2023 1:00 PM EST Office Visit Sleep Disorders Ctr Haydee Pacheco [place] [address] [facility] [place] [phone] Raisa Perez DO [address] [place] [address] 10/10/2023 1:40 PM EST Office Visit Nephrology, [facility] [address] [place] [address] Jax Baird MD [address] [place] [address] 10/24/2023 2:00 PM EST Cardiac Studies Cardiac Studies, Will Pacheco [place] [facility] [place] [address] 10/30/2023 10:00 AM EST Office Visit Cardiology, Will Pacheco [place] [address] [facility] [place] [address] Arti Diaz PA-C [address] [place] [address] 11/20/2023 10:40 AM EST Telemedicine Neurology [facility] [place] [address] [place] [address] Rita Coy PA-C [address] [place] [address] 01/02/2024 10:40 AM EDT Office Visit Rheumatology [facility] [address] [place] [address] Shashi Dawkins MD [address] [place] [address] 01/23/2024 1:20 PM EDT Office Visit [facility] [address] [place] [phone] Yancy Horowitz MD [address] [place] [address] Health Maintenance Due Date Last Done Comments Hepatitis B (1 of 3 - 3-dose series) 1980 Pneumococcal Vaccine: Pediatrics (0 to 5 Years) and At-Risk Patients (6 to 64 Years) (3 - PPSV23 or PCV20) 10/26/2020 06/24/2018, 10/26/2015 COVID-19 Vaccine (2022-24 season) 2023 08/10/2021, 01/26/2021, 01/05/2021 Albumin/Creatinine Ratio 08/28/2023 08/28/2022, 06/05/2022 Depression Screening 09/13/2023 09/13/2022 CKD PHOS USE SMARTSET 67358 01/11/2024 01/10/2023, 1 GFR 02/13/2024 08/15/2023, 10/0 12/2022, 07/08/2023, Additional history exists DTaP,Tdap,and Td Vaccines (2 - Td or Tdap) 03/17/2024 03/17/2014 Mammogram 06/06/2024 06/06/2023, 08/02/2022, 05/17/2022, Additional history exists CKD HGB USE SMARTSET 42291 07/08/202407/08, 07/07/2023, 07/06/2023, Additional history exists Pap Smear 09/13/2025 09/13/2022, 08/06, 03/28/2016, Additional history exists Diabetes Screening 08/15/2026 08/15/2023, 1 , 07/06/2023, Additional history exists Cervical Cancer Screening 09/13/2027 HPV/Co-Test 09/13/2027 09/13/2022 Lipid Panel 08/15/2028 08/15/2023, 04/0 06/2019, 06/24/2018 Influenza Vaccine (FLU shot) Completed 07/2023, 06/21/2022, 07/20/2021, Additional history exists GARDASIL-HPV IMMUNIZATION SERIES Aged Out No longer eligible based on patient's age to complete this topic MENINGOCOCCAL (MENACTRA/MENVEO) Aged Out No longer eligible based on patient's age to complete this topic documented as of this encounter Medical Devices Not on filedocumented as of this encounter Visit Diagnoses Diagnosis Intractable chronic migraine without aura and without status migrainosus Chronic migraine without aura, with intractable migraine, so stated, without mention of status migrainosus documented in this encounter Advance Directives Latest [...] and were consensually agreed upon. Care Teams Imaging Analyst Relationship Specialty Start Date End Date Yancy Horowitz MD [address] [facility] [place] [address] PCP - General Family Medicine 03/13/22 documented as of this encounter
--- OUTSIDE RECORDS SUMMARY | 2023-08-21 22:24 | External Medical Summary ---
Author Name Unknown Address Unknown Organization K01:LABORATORY [facility] - [address] [place] [address] Laboratory Report Ordering Provider Test Date Status ELMA MORA 08/15/2023 09:42:36 Final Observation Date Value Abnormality Reference (Units ) Status MYCODE SPECIMEN-SST 08/15/2023 09:42:36 Freezing of extracted DNA, whole blood and/or serum. Final Performing Location LABORATORY [facility] - [address] [facility] [address]
--- OUTSIDE RECORDS SUMMARY | 2023-08-21 22:24 | External Medical Summary | Summary of Care ---
Author Name Unknown Organization [facility] Address [address] [facility] [place] [address] Phone [phone] Care Team Providers Care Electrical Engineering Director Name Role Phone Ynacy Horowitz MD Primary Care Provid er Reason for Visit * Reason Onset Date Comments Pre Cert/Prior Auth 07/29/2023 started Encounter Details Date Type Department Care Team (Late st Contact Info) Description 07/29/2023 Telephone [facility] [address] [place] [address] Yancy Horowitz MD [address] [place] [address] Pre Cert/Prior Auth (started) Allergies Active Allergy Reactions Criticality Noted Date Comments Penicillin G 05/14/2012 Hives remote documented as of this encounter (statuses as of 07/29/2023) Medications Medication Sig Dispensed Refills Start Date [...] as of this encounter (statuses as of 07/29/2023) Active Problems Problem Noted Date Diagnosed Date [...] as of this encounter (statuses as of 07/29/2023) Resolved Problems Problem Noted Date Diagnosed Date [...] as of this encounter (statuses as of 07/29/2023) Immunizations Name Administration Dates Next Due COVID-19 mRNA, LNP-s, No Pre serve, 2-Dose Series (Dynamic Recreation) 08/10/2021,01/26/2021,01/05/2021 Pneumococcal Conjugate Vacc, 13 Valent (Prevnar) [...] encounter Miscellaneous Notes * Telephone Encounter - Janice Sanchez LPN - 07/29/2023 4:01 PM EDT Started Prior ath. For Wegovy through cover my meds documented in this encounter Plan of Treatment Upcoming Encounters Date Type Department Care Team (Late st Contact Info) Description 08/15/2023 9:00 AM EST Office Visit Cardiology [address] [place] [address] Unruly Pinto, [address] [place] [address] 09/19/2023 1:00 PM EST [facility] [place] [address] Raisa Perez DO [address] [place] [address] 10/10/2023 1:40 PM EST Office Visit Nephrology, [facility] [address] [facility] [place], [place] [address] Jax Baird MD [address] [facility] [place] [address] 11/20/2023 10:40 AM EST Telemedicine Neurology [facility] [address] [facility] [place] [address] Rita Coy PA-C [address] [facility] [place] [address] 01/02/2024 10:40 AM EDT Office Visit Rheumatology [place] [address] [employer] [place], [place] [address] Shashi Dawkins MD [address] [place], [place] [address] 01/23/2024 1:20 PM EDT Office Visit [facility] [address] [place] [address] Yancy Horowitz MD [address] [place] [address] Health Maintenance Due Date Last Done Comments Hepatitis B (1 of 3 - 3-dose series) 1980 Pneumococcal Vaccine: Pediatrics (0 to 5 Years) and At-Risk Patients (6 to 64 Years) (3 - PPSV23 or PCV20) 10/26/2020 06/24/2018, 10/26/2015 COVID-19 Vaccine (2022- season) 2023 08/10/2021, 01/26/2021, 01/05/2021 Albumin/Creatinine Ratio 08/28/2023 08/28/2022, 06/0 05/2022 Depression Screening 09/13/2023 09/13/2022 GFR 01/07/2024 07/08/2023, 10/0 12/2022, 07/07/2023, Additional history exists CKD PHOS USE SMARTSET 46929 01/11/2024 01/10/2023, 1 Lipid Panel 01/13/2024 01/12/2019, 06/24/2018 DTaP,Tdap,and Td Vaccines (2 - Td or Tdap) 03/17/2024 03/17/2014 Mammogram 06/06/2024 06/06/2023, /02/2022, 05/17/2022, Additional history exists CKD HGB USE SMARTSET 04915 07/08/202407/08, 07/07/2023, 07/06/2023, Additional history exists Pap [...] and were consensually agreed upon. Care Teams Electrical Engineering Director Relationship Specialty Start Date End Date Yancy Horowitz MD [address] [place] [address] PCP - General Family Medicine 03/13/22 documented as of this encounter
--- OUTSIDE RECORDS SUMMARY | 2023-08-21 22:24 | External Medical Summary | Summary of Care ---
Author Name Unknown Organization [facility] Address [address] [facility] [place] [address] Phone [phone] Care Team Providers Care Management Psychologist Name Role Phone Yancy Horowitz MD Primary Care Provid er Encounter Details Date Type Department Care Team (Late st Contact Info) Description 08/18/2023 Orders Only Cardiology [address] [place] [phone] Unruly Pinto DO [address] [place] [place] [phone] Ischemic cardiomyopathy* Allergies Active Allergy Reactions Criticality Noted Date Comments Penicillin G 05/14/2012 Hives remote documented as of this encounter (statuses as of 08/18/2023) Medications Medication Sig Dispensed Refills Start Date [...] as of this encounter (statuses as of 08/18/2023) Active Problems Problem Noted Date Diagnosed Date [...] as of this encounter (statuses as of 08/18/2023) Resolved Problems Problem Noted Date Diagnosed Date [...] as of this encounter (statuses as of 08/18/2023) Immunizations Name Administration Dates Next Due COVID-19 [...] on file documented as of this encounter Plan of Treatment Upcoming Encounters Date Type Department Care Team (Late st Contact Info) Description 09/19/2023 1:00 PM EST Office Visit Sleep Disorders Ctr Haydee Pacheco [place] [address] [place] [address] Raisa Perez DO [address] [place] [address] 10/10/2023 1:40 PM EST Office Visit Nephrology, Matilda [facility]berg [address] [place] [phone] Jax Baird MD [address] [place] [address] 10/24/2023 2:00 PM EST Cardiac Studies Cardiac Studies, [facility] [address] [facility] [place] [address] 10/30/2023 10:00 AM EST Office Visit Cardiology, [facility] [address] [facility] [place] [address] Arti Diaz PA-C [address] [facility] [place] [address] 11/20/2023 10:40 AM EST Telemedicine Neurology [facility] [address] [place] [address] Rita Coy PA-C [address] [place] [address] 01/02/2024 10:40 AM EDT Office Visit Rheumatology [place] [address] [place] [address] Shashi Dawkins MD [address] [facility] [place], [place] [address] 01/23/2024 1:20 PM EDT Office Visit [facility] [address] [place] [address] Yancy Horowitz MD [address] [place] [address] Scheduled Orders Name Type Priority Associated Diagnoses Orde r Schedule EKG EKG Routine Ischemic cardiomyopathy Expected: 08/18/2023 (Approximate), Expires: 09/17/2024 Health Maintenance Due Date Last Done Comments Hepatitis B (1 of 3 - 3-dose series) 1980 Pneumococcal Vaccine: Pediatrics (0 to 5 Years) and At-Risk Patients (6 to 64 Years) (3 - PPSV23 or PCV20) 10/26/2020 06/24/2018, 10/26/2015 COVID-19 Vaccine ( season) 2023 08/10/2021, 01/26/2021, 01/05/2021 Albumin/Creatinine Ratio 08/28/2023 08/28/2022, 06/0 05/2022 Depression Screening 09/13/2023 09/13/2022 CKD PHOS USE SMARTSET 81830 01/11/2024 01/10/2023, 1 GFR 02/13/2024 08/15/2023, 100 12/2022, 07/08/2023, Additional history exists DTaP,Tdap,and Td Vaccines (2 - Td or Tdap) 03/17/2024 03/17/2014 Mammogram 06/06/2024 06/06/2023, 05/07, 05/17/2022, Additional history exists CKD HGB USE SMARTSET 26227 07/08/202407/08, 07/07/2023, 07/06/2023, Additional history exists Pap [...] and were consensually agreed upon. Care Teams Management Psychologist Relationship Specialty Start Date End Date Yancy Horowitz MD [address] [facility] [place] [address] PCP - General Family Medicine 03/13/22 documented as of this encounter
--- OUTSIDE RECORDS SUMMARY | 2023-08-21 22:24 | External Medical Summary ---
Author Name Unknown Address Unknown Organization K01:LABORATORY [facility] - [address] [facility] [place] [address] Laboratory Report Ordering Provider Test Date Status REBECCA KENNEDY 08/15/2023 09:42:36 Final Observation Date Value Abnormality Reference (Units ) Status BUN 08/15/2023 09:42:36 11 6-20 (mg/dL) Final Creatinine 08/15/2023 09:42:36 1.3 Above high normal 0.5-1.0 (mg/dL) Final Glomerular filtration rate/1.73 sq M.predicted [Volume Rate/Area] in Serum, Plasma or Blood by Creatinine-based formula (CKD-EPI) 08/15/2023 09:42:36 52 Below low normal >=60 (mL/min) Final eGFR is calculated based on the CKD-EPI 2020 equation SODIUM 08/15/2023 09:42:36 139 135-146 (m mol/L) Final Potassium 08/15/2023 09:42:36 4.1 3.5-5.1 (m mol/L) Final Cl 08/15/2023 09:42:36 105 98-107 (mm ol/L) Final CO2 08/15/2023 09:42:36 27 22-32 (mmo l/L) Final Anion gap 08/15/2023 09:42:36 7 7-15 (mmol /L) Final Glucose 08/15/2023 09:42:36 89 70-120 (mg /dL) Final Albumin 08/15/2023 09:42:36 4.1 3.8-5.0 (g /dL) Final AST (Aspartate aminotransferase) 08/15/2023 09:42:36 21 10-35 (U/L) Final Alk Phos 08/15/2023 09:42:36 99 35-130 (U/ L) Final Bilirubin, Total 08/15/2023 09:42:36 0.4 <=1 .2 (mg/dL) Final Calcium 08/15/2023 09:42:36 9.0 8.4-10.2 ( mg/dL) Final Protein 08/15/2023 09:42:36 6.5 6.0-8.3 (g /dL) Final ALT (Alanine aminotransferase) 08/15/2023 09:42:36 18 10-35 (U/L) Final Performing Location LABORATORY [facility] - [facility] [address] [facility] [address]
--- OUTSIDE RECORDS SUMMARY | 2023-08-21 22:24 | External Medical Summary ---
Author Name Unknown Address Unknown Organization K01:LABORATORY [facility] [place] - [address] [place] [address] Laboratory Report Ordering Provider Test Date Status ELMA MORA 08/15/2023 09:42:36 Final Observation Date Value Abnormality Reference (Units ) Status MYCODE SPECIMEN-SST 08/15/2023 09:42:36 Freezing of extracted DNA, whole blood and/or serum. Final Performing Location LABORATORY [facility] - [address] [facility] [address]
--- OUTSIDE RECORDS SUMMARY | 2023-08-21 22:24 | External Medical Summary | Summary of Care ---
Author Name Unknown Organization [facility] Address [address] [facility] [address] Phone [phone] Care Team Providers Care Director Of Instruction Name Role Phone Yancy Horowitz MD Primary Care Provid er Reason for Visit * Reason Comments Outpatient Testing Encounter Details Date Type Department Care Team (Late st Contact Info) Description 08/15/2023 9:40 AM EST Laboratory Laboratory, [facility] [address] [place] [address] [facility], Lab [address] [place] [address] [facility] Other*[id number]; Acute ST elevation myocardial infarction (STEMI) involving right coronary artery (HCC) Allergies Active Allergy Reactions Criticality Noted Date [...] s:Moderate episode of recurrent major depressive disorder (HCC),ALEIXS (generalized anxiety disorder),PTSD (post-traumatic stress disorder) TAKE [...] EST [facility] [address] [facility] [place] [address] Raisa Perez, [address] [place] [address] 10/10/2023 1:40 PM EST Office Visit Nephrology, [facility] 200 [facility] [place], [place] [address] Jax Baird MD 200 [facility] [place] [address] 10/24/2023 2:00 PM EST Cardiac Studies Cardiac Studies, [facility] [address] [place] [address] 10/30/2023 10:00 AM EST Office Visit Cardiology, [facility] [address] [place] [address] Arti Diaz PA-C [address] [facility] [place] [address] 11/20/2023 10:40 AM EST Telemedicine Neurology [facility] 200 [facility] [place] [address] Rita Coy PA-C [address] [facility] [place] [address] 01/02/2024 10:40 AM EDT Office Visit Rheumatology [place] [phone] [facility] [place], [place] [address] Shashi Dawkins MD [address] [facility] [place], [place] [address] 01/23/2024 1:20 PM EDT Office Visit [facility] [address] [place] [phone] Yancy Horowitz MD [address] [place], [place] [id number] Pending Results Name Type Priority Associated Diagnoses Date /Time MYCODE SUBSEQUENT ADULT Lab Routine [employer] Other*[id number] 08/15/2023 9:42 AM EST COMPREHENSIVE METABOLIC PANEL Lab Routine Acute ST elevation myocardial infarction (STEMI) involving right coronary artery (HCC) 08/15/2023 9:42 AM EST LIPID PANEL WITH DIRECT LDL IF TG IS HIGH Lab Routine Acute ST elevation myocardial infarction (STEMI) involving right coronary artery (HCC) 08/15/2023 9:42 AM EST MYCODE SST1 Lab Routine [employer] Other*[id number] 08/15/2023 9:42 AM EST MYCODE SST2 Lab Routine [employer] Other*[id number] 08/15/2023 9:42 AM EST Health Maintenance Due Date Last Done Comments Hepatitis B (1 of 3 - 3-dose series) 1980 Pneumococcal Vaccine: Pediatrics (0 to 5 Years) and At-Risk Patients (6 to 64 Years) (3 - PPSV23 or PCV20) 10/26/2020 06/24/2018, 10/26/2015 COVID-19 Vaccine ( - season) 2023 08/10/2021, 01/26/2021, 01/05/2021 Albumin/Creatinine Ratio 08/28/2023 08/28/2022, 060 05/2022 Depression Screening 09/13/2023 09/13/2022 GFR 01/07/2024 07/08/2023, 1012/2022, 07/07/2023, Additional history exists CKD PHOS USE SMARTSET 46020 01/11/2024 01/10/2023, 1 Lipid Panel 01/13/2024 01/12/2019, 06/24/2018 DTaP,Tdap,and Td Vaccines (2 - Td or Tdap) 03/17/2024 03/17/2014 Mammogram 06/06/2024 06/06/2023, 05/07, 05/17/2022, Additional history exists CKD HGB USE SMARTSET 80996 07/08/202407/08, 07/07/2023, 07/06/2023, Additional history exists Pap [...] as of this encounter Visit Diagnoses Diagnosis [employer] Other*[id number] Acute ST elevation myocardial infarction (STEMI) involving right coronary artery (HCC) documented in this encounter Advance Directives Latest [...] and were consensually agreed upon. Care Teams Director Of Instruction Relationship Specialty Start Date End Date Yancy Horowitz MD [address] [place] [address] PCP - General Family Medicine 03/13/22 documented as of this encounter
--- OUTSIDE RECORDS SUMMARY | 2023-08-21 22:24 | External Medical Summary | Summary of Care ---
Author Name Unknown Organization [facility] Address [address] [facility] [place] [address] Phone [phone] Care Team Providers Care Manufacturing Team Member Name Role Phone Yancy Horowitz MD Primary Care Provid er Reason for Visit * Reason Onset Date Comments Referral 08/05/2023 MTDM d/c (smokin g cessation) Encounter Details Date Type Department Care Team ([facility] st Contact Info) Description 08/05/2023 Telephone Pharmacy Call Center [address] [facility] [place] [address] [facility] [address] [place] [address] Referral (MTDM d/c (smoking cessation)) Allergies Active Allergy Reactions Criticality Noted Date Comments Penicillin G 05/14/2012 Hives remote documented as of this encounter (statuses as of 08/05/2023) Medications Medication Sig Dispensed Refills Start Date [...] as of this encounter (statuses as of 08/05/2023) Active Problems Problem Noted Date Diagnosed Date [...] as of this encounter (statuses as of 08/05/2023) Resolved Problems Problem Noted Date Diagnosed Date [...] as of this encounter (statuses as of 08/05/2023) Immunizations Name Administration Dates Next Due COVID-19 mRNA, LNP-s, No Pre serve, 2-Dose Series ([employer]) 08/10/2021,01/26/2021,01/05/2021 Pneumococcal Conjugate Vacc, 13 Valent (Prevnar) [...] encounter Miscellaneous Notes * Telephone Encounter - Kateryna Perez auger operator - 08/05/2023 11:24 AM EDT Saqib has not contacted the clinic to schedule/reschedule an appointment for smoking cessation management per referral from PCP despite multiple requests (via phone, letter and/or [facility]) to do so by our team. Patient is discharged from [facility] services at this time. Thank you, Kateryna Perez Art Teacher [facility]) 08/05/2023,11:24 AM documented in this encounter Plan of Treatment Upcoming Encounters Date Type Department Care Team (Late st Contact Info) Description 08/15/2023 9:00 AM EST Office Visit Cardiology [address] [place] [address] [place] [address] Unruly Pinto DO [address] [place] [address] 09/19/2023 1:00 PM EST Office Visit [facility] Disorders [facility] [place] [address] [place] [phone] Raisa Perez DO [address] [place] [address] 10/10/2023 1:40 PM EST Office Visit Nephrology, [facility] [address] [facility] [place] [address] Jax Baird MD [address] [facility] [place] [address] 11/20/2023 10:40 AM EST Telemedicine Neurology [facility] [place] [address] [place] [address] Rita Coy PA-C [address] [facility] [place] [address] 01/02/2024 10:40 AM EDT Office Visit Rheumatology [place] [address] [address] [place], [place] [address] Shashi Dawkins MD [facility] [place], [place] [address] 01/23/2024 1:20 PM EDT Office Visit [facility]ly [facility] [address] [place] [address] Yancy Horowitz MD [address] [place] [address] Health Maintenance Due Date Last Done Comments [...] Additional history exists CKD PHOS USE SMARTSET 99683 01/11/2024 01/10/2023, 1 Lipid Panel 01/13/2024 01/12/2019, 06/24/2018 DTaP,Tdap,and Td Vaccines (2 - Td or Tdap) 03/17/2024 03/17/2014 Mammogram 06/06/2024 06/06/2023, 05/07, 05/17/2022, Additional history exists CKD HGB USE SMARTSET 49458 07/08/202407/08, 07/07/2023, 07/06/2023, Additional history exists Pap [...] and were consensually agreed upon. Care Teams Manufacturing Team Member Relationship Specialty Start Date End Date Yancy Horowitz MD [address] [place] [address] PCP - General Family Medicine 03/13/22 documented as of this encounter
--- OUTSIDE RECORDS SUMMARY | 2023-08-21 22:25 | External Medical Summary | Summary of Care ---
Author Name Unknown Organization [facility] Address [address] [facility] [place] [address] Phone [phone] Care Team Providers Care Electrician Substation Supervisor Name Role Phone Yancy Horowitz MD Primary Care Provid er Reason for Visit * Reason Comments eRx-Medication Refill Encounter Details Date Type Department Care Team Description 07/10/2023 Refill Neurology [facility] [address] [place] [address] Rachel Hernandez PA-C [address] [place] [address] Intractable chronic migraine without aura and without status migrainosus Allergies Active Allergy Reactions Severity Noted Date Comments Penicillin G 05/14/2012 Hives remote documented as of this encounter (statuses as of 07/14/2023) Medications Medication Sig Dispensed Refills Start Date End Date Status QUEtiapine Fumarate 100 MG Oral Tablet (SEROquel)Indicat [...] OR CHEW 90 Capsule 1 01/23/2023 Active Hydroxychloroquin e Sulfate 200 MG Oral Tablet [...] once daily 90 Tablet 0 07/14/2023 Active Verapamil HCl ER 240 MG Oral Tablet Extended Release (Isoptin SR)Indications:In tractable chronic migraine without aura and without status migrainosus Take 1 tablet by mouth once daily 90 Tablet 0 04/15/2023 3 Discontinued documented as of this encounter (statuses as of 07/14/2023) Active Problems Problem Noted Date Greater trochanteric [...] as of this encounter (statuses as of 07/14/2023) Resolved Problems Problem Noted Date Resolved Date Trochanteric bursitis, right hip 06/04/2018 01/12/2019 Cough 10/28/2017 01/12/2019 Status post functional endoscopic sinus surgery 10/28/2016 01/12/2019 Status post nasal surgery 10/21/20162018 Deviated nasal septum 10/08/2016 01/12/2019 Hypertrophy of both inferior nasal turbinates 01/12/2019 Chronic rhinitis 09/24/2016 01/12/2019 Chronic sinusitis 09/24/2016 01/12/2019 delivery delivered 05/27/2014 0406/2019 Overview: ICD-10 update of inactive term Encounter for sterilization 05/27/2014 0406/2019 Overview: ICD-10 update of inactive term Advanced [...] as of this encounter (statuses as of 07/14/2023) Immunizations Name Administration Dates Next Due COVID-19 [...] encounter Miscellaneous Notes * Telephone Encounter - Rachel Hernandez PA-C - 07/14/2023 7:51 AM EDT Signed Prescriptions: Disp Refills Verapamil HCl ER 240 MG Oral Tablet Extend*90 Tab*0 Sig: Take 1 tablet by mouth once daily Authorizing Provider: RACHEL HERNANDEZ * Telephone Encounter - Simran Mullen MED [facility] - 07/11/2023 12:58 PM EDT Pending Prescriptions: Disp Refills Verapamil HCl ER 240 MG Oral Tablet Extend*90 Tab*0 Sig: Take 1 tablet by mouth once daily * Telephone Encounter - Antonia Aquino CPhT - 07/11/2023 12:45 PM EDTPending Prescriptions: Disp Refills Verapamil HCl ER 240 MG Oral Tablet Extend*90 Tab*0 Sig: Take 1 tablet by mouth once daily * Telephone Encounter - Antonia Aquino CPhT - 07/11/2023 12:44 PM EDT Patient is up to date for office visits. Pending Prescriptions: Disp Refills Verapamil HCl ER 240 MG Oral Tablet Exten*90 Tab*0 Sig: Take 1 tablet by mouth once daily Last Visit: 01/08/2019 (in office), 05/15/2023 (telemedicine) Next Visit: 11/20/2023 If no future appointments scheduled, and last appointment is greater than a year ago, please schedule patient for a follow-up appointment Last date the medication was ordered: 04/15/2023 Pharmacy: [facility] [place] Is this request for a controlled substance?No it is not controlled. Urine Drug Screen:No results found for this [...] Encounters Date Type Specialty Care Team Description 07/15/2023 Office Visit Family Medicine [facility] [address] [facility] [address] 09/19/2023 Office Visit Sleep Disorders Raisa Perez DO [address] [place] [address] 10/10/2023 Office Visit Nephrology Jax Baird MD [address] [facility] [place] [address] 11/20/2023 Telemedicine Neurology Rachel Hernandez PA-C [address] [place] [address] 01/02/2024 Office Visit Rheumatology Shashi Dawkins MD [address] [facility] [place] [address] Health Maintenance Due Date Last Done Comments Hepatitis B (1 of 3 - 3-dose series) 1980 Pneumococcal Vaccine: Pediatrics (0 to 5 Years) and At-Risk Patients (6 to 64 Years) (3 - PPSV23 or PCV20) 10/26/2020 06/24/2018, 10/26/2015 COVID-19 Vaccine ( - 2022- season) 2023 08/10/2021, 01/26/2021, 01/05/2021 Influenza Vaccine (FLU shot) (#1) 2023 06/21/2022, 07/20/2021, 09/08/2020, Additional history exists Albumin/Creatinine Ratio 08/28/2023 08/28/2022, 0605/2022 Depression Screening 09/13/2023 09/13/2022 GFR 01/05/2024 07/06/2023, 11/07, 08/28/2022, Additional history exists CKD PHOS USE SMARTSET 73957 01/11/2024 01/10/2023, 1 Lipid Panel 01/13/2024 01/12/2019, 06/24/2018 DTaP,Tdap,and Td Vaccines (2 - Td or Tdap) 03/17/2024 03/17/2014 Mammogram 06/06/2024 06/06/2023, 05/07, 05/17/2022, Additional history exists CKD HGB USE SMARTSET 30448 07/06/202407/06, 07/06/2023, 12/03/2022, Additional history exists Pap Smear 09/13/2025 09/13/2022, 08/06, 03/28/2016, Additional history exists Diabetes Screening 07/06/2026 07/06/2023, 1 , 12/03/2022, Additional history exists Cervical Cancer Screening 09/13/2027 HPV/Co-Test 09/13/2027 09/13/2022 GARDASIL-HPV IMMUNIZATION SERIES Aged Out No longer [...] and were consensually agreed upon. Care Teams Electrician Substation Supervisor Relationship Specialty Start Date End Date Yancy Horowitz MD [address] [place] [facility] [place] [address] PCP - General Family Medicine 03/13/22 documented as of this encounter
--- OUTSIDE RECORDS SUMMARY | 2023-08-21 22:25 | External Medical Summary | Summary of Care ---
Author Name Unknown Organization [facility] Address [address] [facility] [place] [address] Phone [phone] Care Team Providers Care Chop Saw Operator Name Role Phone Yancy Horowitz MD Primary Care Provid er Encounter Details Date Type Department Care Team Description 07/15/2023 Telephone [facility] [address] [place] [address] Yancy Horowitz MD [address] [place] [address] Allergies Active Allergy Reactions Severity Noted Date Comments Penicillin G 05/14/2012 Hives remote documented as of this encounter (statuses as of 07/15/2023) Medications Medication Sig Dispensed Refills Start Date End Date Status QUEtiapine Fumarate 100 MG Oral Tablet (SEROquel)Indications [...] mouth in the morning. 0 07/07/2023 Active documented as of this encounter (statuses as of 07/15/2023) Active Problems Problem Noted Date Greater trochanteric [...] as of this encounter (statuses as of 07/15/2023) Resolved Problems Problem Noted Date Resolved Date [...] as of this encounter (statuses as of 07/15/2023) Immunizations Name Administration Dates Next Due COVID-19 [...] encounter Miscellaneous Notes * Telephone Encounter - Raisa Perez DO - 07/15/2023 3:56 PM EDT Please check with DME * Telephone Encounter - Yancy Horowitz MD - 07/15/2023 2:36 PM EDT Pt has yet to receive CPAP Recently diagnosed with inferior wall SD, s/p TY RCA Just checking in to make sure CPAP is on its way? AG documented in this encounter Plan of Treatment Upcoming Encounters Date Type Specialty Care Team Description 09/15/2023 Office Visit Cardiology Francisco Elizondo MD [address] [place] [address] 09/19/2023 Office Visit Sleep Disorders Raisa Perez DO [address] [place] [address] 10/10/2023 Office Visit Nephrology [facility]ax [facility]aird [facility] [address] 11/20/2023 Telemedicine Neurology Rita Coy PA-C [address] [facility] [place], [place] [address] 01/02/2024 Office Visit Rheumatology Shashi Dawkins MD [address] [facility] [place], [place] [address] 01/23/2024 Office Visit Family Medicine Yancy Horowitz MD [address] [place] [address] Health Maintenance Due Date Last Done Comments [...] Additional history exists CKD PHOS USE SMARTSET 41802 01/11/2024 01/10/2023, 1 Lipid Panel 01/13/2024 01/12/2019, 06/24/2018 DTaP,Tdap,and Td Vaccines (2 - Td or Tdap) 03/17/2024 03/17/2014 Mammogram 06/06/2024 06/06/2023, 05/07, 05/17/2022, Additional history exists CKD HGB USE SMARTSET 05488 07/08/202407/08, 07/07/2023, 07/06/2023, Additional history exists Pap [...] and were consensually agreed upon. Care Teams Chop Saw Operator Relationship Specialty Start Date End Date Yancy Horowitz MD [address] [facility] [place] [address] PCP - General Family Medicine 03/13/22 documented as of this encounter
--- OUTSIDE RECORDS SUMMARY | 2023-08-21 22:25 | External Medical Summary ---
Author Name Unknown Address Unknown Organization K1G:LABORATORY [facility] - [facility]0 [facility] [address] Laboratory Report Ordering Provider Test Date Status DK JOHNSON 07/06/2023 17:56:33 Final Observation Date Value Abnormality Reference (Units ) Status Glucose Point of Care 07/06/2023 17:56:33 136 Above high normal 70-120 (mg/dL) Final Performing Location LABORATORY [facility] - [address] [facility] [phone]
--- OUTSIDE RECORDS SUMMARY | 2023-08-21 22:25 | External Medical Summary ---
Author Name Unknown Address Unknown Organization K1G:[facility]OR[facility]ORY [facility] - [address] [facility] [address] Laboratory Report Ordering Provider Test Date Status DK JOHNSON 07/06/2023 18:03:50 Final Warfarin Therapy
INR: 2 .0-3.0 conventional anticoagulation
INR: 2.5- 3.5 high intensity anticoagulation Observation Date Value Abnormality Reference (Units ) Status PT 07/06/2023 18:03:50 14.1 11.6-15.2 (seconds) Final INR 07/06/2023 18:03:50 1.1 0.8-1.2 Final Performing Location LABORATORY [facility] - [address] [facility] [address]
--- OUTSIDE RECORDS SUMMARY | 2023-08-21 22:25 | External Medical Summary ---
Author Name Unknown Address Unknown Organization K1G:LABORATORY [facility] - [address] [place] [address] Laboratory Report Ordering Provider Test Date Status DK JOHNSON 07/06/2023 18:03:50 Final Observation Date Value Abnormality Reference (Units ) Status Troponin T 07/06/2023 18:03:50 9 <=14 (ng/ L) Final Performing Location LABORATORY [facility] - [address] [place] [id number]
--- OUTSIDE RECORDS SUMMARY | 2023-08-21 22:25 | External Medical Summary ---
Author Name Unknown Address Unknown Organization R1WR:[facility] [address] [place] [address] Laboratory Report Ordering Provider Test Date Status CELI LIMA 07/08/2023 05:17:00 Final Observation Date Value Abnormality Reference (Units ) Status WBC 07/08/2023 05:36 8.8 4.0-10.0 (X10E+09/L) Final RBC 07/08/2023 05:36 3.92 3.9-5.2 (X10E+12/L) Final Hemoglobin 07/08/2023 05:36 12.8 11.2-15.7 (g/dL) Final Hematocrit 07/08/2023 05:36 38.7 34-45 (%) Final MCV 07/08/2023 05:36 98.7 Above high normal 79-98 (fL) Final MCH 07/08/2023 05:36 32.7 Above high normal 26.0-32.0 (pg) Final MCHC 07/08/2023 05:36 33.1 32-36 (g/dL) Final Platelets 07/08/2023 05:36 192 150-370 (X10E+09/L) Final RDW 07/08/2023 05:36 12.4 11.7-14.4 (%) Final Neutrophils 07/08/2023 05:36 59.0 34.0-71.1 (%) Final Lymphocytes 07/08/2023 05:36 29.6 19.3-51.7 (%) Final Monocytes 07/08/2023 05:36 9.1 4.7-12.5 (%) Final Eosinophils 07/08/2023 05:36 1.8 0.7-5.8 (%) Final Basophils 07/08/2023 05:36 0.5 0.1-1.2 (%) Final Absolute Neutrophils 07/08/2023 05:36 5.20 1.6-6.1 (X10E+09/L) Final Absolute Lymphocytes 07/08/2023 05:36 2.61 1.2-3.7 (X10E+09/L) Final Absolute Monocytes 07/08/2023 05:36 0.80 0.2-0.9 (X10E+09/L) Final Absolute Eosinophils 07/08/2023 05:36 0.16 0.0-0.4 (X10E+09/L) Final Absolute Basophils 07/08/2023 05:36 0.04 0.0-0.1 (X10E+09/L) Final Absolute NRBC 07/08/2023 05:36 0.00 0 (X10E+09/L) Final Nucleated RBC 07/08/2023 05:36 0.0 0.0-0.2 (/100 WBC) Final Performing Location [facility] [address] [place] [address]
--- OUTSIDE RECORDS SUMMARY | 2023-08-21 22:25 | External Medical Summary ---
Author Name Unknown Address Unknown Organization R1WR:[facility] [address] [place] [address] Laboratory Report Ordering Provider Test Date Status CELI LIMA 07/08/2023 05:17:00 Final Observation Date Value Abnormality Reference (Units ) Status High Sensitivity Troponin I 07/08/2023 06:00 [address] Above upper panic limits <45 (ng/L) Final [facility] AT [id number]. THE RESULTS WERE READ BACK AND VERIFIED BY: JAVIER ICU GAMEVIL hs-Troponin I assay measured using the Siemens immunoassay. (Atellica analyzer, Siemens, [facility]) Performing Location [facility] [address] [place] [address]
--- OUTSIDE RECORDS SUMMARY | 2023-08-21 22:25 | External Medical Summary ---
Author Name Unknown Address Unknown Organization K1G:LABORATORY [facility] - [address] [place] [id number] Laboratory Report Ordering Provider Test Date Status DK JOHNSON 07/06/2023 18:03:50 Final Observation Date Value Abnormality Reference (Units ) Status WBC, Total 07/06/2023 18:03:50 16.69 Above high normal 4 .00-10.80 (K/uL) Final RBC 07/06/2023 18:03:50 4.46 3.85-5.15 (M/uL) Final Hemoglobin 07/06/2023 18:03:50 14.8 12.0-15.3 (g/dL) Final HCT 07/06/2023 18:03:50 43.0 36.0-45.2 (%) Final MCV 07/06/2023 18:03:50 96.4 81.5-97.5 (fL) Final MCH 07/06/2023 18:03:50 33.2 27.0-34.0 (pg) Final MCHC 07/06/2023 18:03:50 34.4 32.0-36.0 (g/dL) Final RDW 07/06/2023 18:03:50 12.1 11.5-15.5 (%) Final Platelets 07/06/2023 18:03:50 259 140-400 (K /uL) Final MPV 07/06/2023 18:03:50 12.4 6.6-11.1 ( fL) Final Performing Location LABORATORY [facility] - [address] [place] [phone]
--- OUTSIDE RECORDS SUMMARY | 2023-08-21 22:25 | External Medical Summary | Summary of Care ---
Author Name Unknown Organization [facility] Address [address] [facility] [place] [address] Phone [phone] Care Team Providers Care Guidance And Control System Engineer Name Role Phone Yancy Horowitz MD Primary Care Provid er Encounter Details Date Type Department Care Team Description 07/16/2023 Telephone Pulmonary Medicine, [facility] [address] [place] [address] Raisa Preez, [address] [place] [address] Allergies Active Allergy Reactions Severity Noted Date Comments Penicillin G 05/14/2012 Hives remote documented as of this encounter (statuses as of 07/16/2023) Medications Medication Sig Dispensed Refills Start Date [...] as of this encounter (statuses as of 07/16/2023) Active Problems Problem Noted Date Greater trochanteric [...] as of this encounter (statuses as of 07/16/2023) Resolved Problems Problem Noted Date Resolved Date [...] as of this encounter (statuses as of 07/16/2023) Immunizations Name Administration Dates Next Due COVID-19 mRNA, LNP-s, No Pre serve, 2-Dose Series ([employer]) 08/10/2021,01/26/2021,01/05/2021 Pneumococcal Conjugate Vacc, 13 Valent (Prevnar) [...] encounter Miscellaneous Notes * Telephone Encounter - Adrian Ladd - 07/16/2023 12:33 PM EDT Orders in 07/16 new cpap [facility] documented in this encounter Plan of Treatment Upcoming Encounters Date Type Specialty Care Team Description 09/15/2023 Office Visit Cardiology Francisco Elizondo MD [address] [place] [address] 09/19/2023 Office Visit Sleep Disorders Raisa Perez DO [address] [place] [address] 10/10/2023 Office Visit Nephrology Jax Baird MD [address] [place] [address] 11/20/2023 Telemedicine Neurology Rita Coy PA-C [address] [place], [place] [address] 01/02/2024 Office Visit Rheumatology Shashi Dawkins MD [address] [place] [address] 01/23/2024 Office Visit Family Medicine Yancy Horowitz MD [address] [place] [address] Health Maintenance Due Date Last Done Comments Hepatitis B (1 of 3 - 3-dose series) 1980 Pneumococcal Vaccine: Pediatrics (0 to 5 Years) and At-Risk Patients (6 to 64 Years) (3 - PPSV23 or PCV20) 10/26/2020 06/24/2018, 10/26/2015 COVID-19 Vaccine (4 - 2022-24 season) 2023 08/10/2021, 01/26/2021, 01/05/2021 Albumin/Creatinine Ratio 08/28/2023 08/28/2022, 05/2022 Depression Screening 09/13/2023 09/13/2022 GFR 01/07/2024 07/08/2023, 1012/2022, 07/07/2023, Additional history exists CKD PHOS USE SMARTSET 47894 01/11/2024 01/10/2023, 1 Lipid Panel 01/13/2024 01/12/2019, 06/24/2018 DTaP,Tdap,and Td Vaccines (2 - Td or Tdap) 03/17/2024 03/17/2014 Mammogram 06/06/2024 06/06/2023, 08/02/2022, 05/17/2022, Additional history exists CKD HGB USE SMARTSET 68520 07/08/202407/08, 07/07/2023, 07/06/2023, Additional history exists Pap [...] and were consensually agreed upon. Care Teams Guidance And Control System Engineer Relationship Specialty Start Date End Date Yancy Horowitz MD [address] [place] [facility] [place] [address] PCP - General Family Medicine 03/13/22 documented as of this encounter
--- OUTSIDE RECORDS SUMMARY | 2023-08-21 22:25 | External Medical Summary ---
Author Name Unknown Address Unknown Organization K1G:LABORATORY [facility] - [address] [facility] [address] Laboratory Report Ordering Provider Test Date Status DK JOHNSON 07/06/2023 18:03:50 Final Observation Date Value Abnormality Reference (Units ) Status SYNC LEUKOCYTES IN BLOOD BY AUTOMATED COUNT 07/06/2023 18:03:50 16.69 Above high normal 4.00-10.80 (K/uL) Final Segs 07/06/2023 18:03:50 68.5 40.0-75.0 (%) Final Lymphs % 07/06/2023 18:03:50 22.7 18.0-42.0 (%) Final Monos 07/06/2023 18:03:50 7.4 1.0-11.0 (%) Final Eosinophils 07/06/2023 18:03:50 1.3 0.0-6.0 (%) Final Basos 07/06/2023 18:03:50 0.1 0.0-2.0 (%) Final Absolute Segs 07/06/2023 18:03:50 11.43 Above high normal 1.80-7.70 (K/uL) Final Lymphs, absolute 07/06/2023 18:03:50 3.79 1.00-4.80 (K/ul) Final Monos, Abs 07/06/2023 18:03:50 1.23 Above high normal 0.00-1.10 (K/uL) Final Eos, Abs 07/06/2023 18:03:50 0.22 0.00-0.70 (K/uL) Final Basos, Abs 07/06/2023 18:03:50 0.02 0.00-0.20 (K/uL) Final Performing Location LABORATORY [facility] - [address] [facility] [address]
--- OUTSIDE RECORDS SUMMARY | 2023-08-21 22:25 | External Medical Summary | Summary of Care ---
Author Name Unknown Organization [facility] Address [address] [place] [address] Phone [phone] Care Team Providers Care Gift Wrapper Name Role Phone Yancy Horowitz MD Primary Care Provid er Reason for Visit * Reason Comments Near Syncopal Episode * Auth/Cert Specialty Diagnoses / Procedures Referred By Pascual t Referred To Contact Referral ID Status Reason Start Date Expiration Date Visits Re quested Visits Authorized [id number] Encounter Details Date Type Department Care Team Description 07/06/2023 Emergency [facility] ([facility]) [address] [place] [address] Erica Miranda MD [address] [place] [address] elevation myocardial infarction (STEMI) involving other coronary artery of inferior wall (HCC) (Primary Dx) Allergies Active Allergy Reactions Severity Noted Date Comments Penicillin G 05/14/2012 Hives remote documented as of this encounter (statuses as of 07/07/2023) Medications Medication Sig Dispensed Refills Start Date [...] the morning. 180 Tablet 3 02/25/2023 Active Verapamil HCl ER 240 MG Oral Tablet Extended Release (Isoptin SR)Indications:Intra ctable chronic migraine without aura and without status migrainosus Take 1 tablet by mouth once daily 90 Tablet 0 04/15/2023 Active Gabapentin 300 MG Oral Capsule (Neurontin) Take 2 Capsules by mouth at bedtime. 60 Capsule 3 05/20/2023 Active documented as of this encounter (statuses as of 07/07/2023) Active Problems Problem Noted Date Greater trochanteric [...] as of this encounter (statuses as of 07/07/2023) Resolved Problems Problem Noted Date Resolved Date [...] as of this encounter (statuses as of 07/07/2023) Immunizations Name Administration Dates Next Due COVID-19 [...] Sign Reading Time Taken Comments Blood Pressure 129/77 07/06/2023 6:08 PM EDT Pulse 59 07/06/2023 6:08 PM EDT Temperature 35.1 C (95.2 F) 07/06/2023 5:52 PM ED T Respiratory Rate 26 07/06/2023 6:08 PM EDT Oxygen Saturation 99% 07/06/2023 6:08 PM EDT Inhaled Oxygen Concentration - - Weight 90.3 kg (199 lb) 07/06/2023 5:52 PM EDT Height - - Body Mass Index 32.4 05/20/2023 1:17 PM EDT documented in this encounter ED Notes * Erica Miranda MD - 07/06/2023 6:07 PM EDTAssociated Order(s): ECG Interpret HISTORY OF PRESENT ILLNESS Saqib Belle is a 42 year old female who presents to the ED for evaluation of Near Syncopal Episode. The patient was seen at 07/06/231750. Patient reports that she has been feeling unwell and started having some pain in her chest around 3:00 a.m.. She felt nauseous and almost passed out. She isnot been eating or drinking much today. Denies any other recent illnesses. She is on lupus on Plaquenil but no recent changes. She feels shaky, cold, short of breath and nauseous. Near Syncopal Episode Associated symptoms: chest pain, diaphoresis, nausea and shortness of breath Review of Systems Constitutional: Positive for chills and diaphoresis. Respiratory: Positive for shortness of breath. Cardiovascular: Positive for chest pain and near-syncope. Gastrointestinal: Positive for nausea. Neurological: Positive for light-headedness. The patient's allergies, past history, and medications were reviewed. PHYSICAL EXAM Initial Vitals (see all): BP 130/104 | Pulse 62 | Resp 16 | Temp 95.2 | O2 86 %, Room Air, None | Weight 90.27 kg | Height 166.9 cm | BMI 32.4 kg/m2 Initial Pain Assessment (see all): 8 (severe pain)/10 ([facility] Adult Scale 0-10) Physical Exam Constitutional: Appearance: She is ill-appearing and diaphoretic. HENT: Head: Normocephalic. Cardiovascular: Rate and Rhythm: Regular rhythm. Bradycardia present. Pulmonary: Breath sounds: No wheezing. Chest: Chest wall: Tenderness present. Abdominal: Palpations: Abdomen is soft. Tenderness: There is no abdominal tenderness. Skin: General: Skin is warm. Neurological: Mental Status: She is alert. Psychiatric: Mood and Affect: Mood is anxious. PROCEDURES AND TREATMENTS ED Orders | ED Results ECG Interpret Date/Time: 07/06/2023 6:17 PM Performed by: Erica Miranda MD Authorized by: Erica Miranda MD Previous ECG: Previous ECG: Unavailable Interpretation: Interpretation: abnormal Rate: ECG rate: 56 ECG rate assessment: bradycardic Rhythm: Rhythm: sinus rhythm Ectopy: Ectopy: PAC ST segments: ST segments: Abnormal Elevation: II, III and aVF Intervals: OH Interval: 158 QRS Interval: 102 QTc Interval: 526 MEDICAL DECISION MAKING Nursing notes and vital signs were reviewed. Patient has a history of tobacco use and lupus presenting with chest pain diaphoresis and feeling unwell for the past 3 hours. EKG was performed on patient arrival and there was concern for acute inferior infarct as there was ST elevations in II, III, and AVF with concern for some depressions or T-wave abnormalities in V1 V2. [facility] was emergently called and patient was accepted by Dr. Benja Trevizo. Patient was informed of these concerning findings and accepted transfer to [facility]. EMTALA signed. It was recommended that patient receive heparin and boluswas ordered along with 324mg ASA. Patient was given IV fluids and supplemental oxygen. EMS was called and patient was then transferred to [facility] for emergent cardiology evaluation. Amount and/or Complexity of Data Reviewed Labs: ordered. ECG/medicine tests: ordered and independent interpretation performed. Risk OTC drugs. Prescription drug management. Clinical Impressions Acute ST elevation myocardial infarction (STEMI) involving other coronary artery of inferior wall (HCC) Disposition Transferred. The patient's condition at disposition was: . Comments ED Disposition Transferred Comment -- Erica Miranda * Niharika Alexandra RN - 07/06/2023 5:53 PM EDT Patient was at her son's football game when she started feeling sick, like she was going to pass out. She started with chest pain and diaphoresis. documented in this encounter Miscellaneous Notes * ED [facility] Note - Amisha Arriaga RN - 07/06/2023 6:43 PM EDT Report called and given to [facility] director of cardiac cath lab nurse [place] at 1825. Lab results also faxed to [phone] at 1843 per request. * ED [facility] Note - Niharika Alexandra RN - 07/06/2023 6:09 PM EDT Patient's was contacted and made aware of the situation per the patient's request. * ED [facility] Note - Niharika Alexandra RN - 07/06/2023 6:04 PM EDT Time contacted: [phone] EMS agency: [place] [id number] Spoke to: Naun package sorter Outcome: They will be right over. documented in this encounter Plan of Treatment Upcoming Encounters Date Type Specialty Care Team Description 07/11/2023 Office Visit Family Medicine Yancy Horowitz MD [address] [facility] [address] 09/19/2023 Office Visit Sleep Disorders Raisa Perez DO [address] [place] [address] 10/10/2023 Office Visit Nephrology Jax Baird MD [address] [facility] [place] [address] 11/20/2023 Telemedicine Neurology Rita Coy PA-C [address] [place] [address] 01/02/2024 Office Visit Rheumatology Shashi Dawkins MD [address] [facility] [place], [place] [address] Scheduled Orders Name Type Priority Associated Diagnoses Orde r Schedule EKG EKG STAT Perform Now fo r 1 Occurrences starting 07/06/2023 until 07/06/2023 Health Maintenance Due Date Last Done Comments Hepatitis B (1 of 3 - 3-dose series) 1980 Pneumococcal Vaccine: Pediatrics (0 to 5 Years) and At-Risk Patients (6 to 64 Years) (3 - PPSV23 or PCV20) 10/26/2020 06/24/2018, 10/26/2015 COVID-19 Vaccine (4 - Pfizer risk series) 10/05/2021 08/10/2021, 01/26/2021, 01/05/2021 Influenza Vaccine (FLU shot) (#1) 2023 06/21/2022, 07/20/2021, 09/08/2020, Additional history exists Albumin/Creatinine Ratio 08/28/2023 08/28/2022, 06/05/2022 Depression Screening 09/13/2023 09/13/2022 GFR 01/05/2024 07/06/2023, 11/07, 08/28/2022, Additional history exists CKD PHOS USE SMARTSET 98287 01/11/2024 01/10/2023, 1 Lipid Panel 01/13/2024 01/12/2019, 06/24/2018 DTaP,Tdap,and Td Vaccines (2 - Td or Tdap) 03/17/2024 03/17/2014 Mammogram 06/06/2024 06/06/2023, 05/07, 05/17/2022, Additional history exists CKD HGB USE SMARTSET 24801 07/06/202407/06, 07/06/2023, 12/03/2022, Additional history exists Pap [...] Procedure Name Priority Date/Time Associated Diagnosis Comments ECG INTERPRET Routine 07/06/2023 6:17 PM EDT DIFFERENTIAL, AUTOMATED STAT 07/06/2023 6:03 PM EDT TROPONIN T, HIGH SENSITIVITY STAT 07/06/2023 6:03 PM EDT COMPREHENSIVE METABOLIC PANEL STAT 07/06/2023 6:03 PM EDT CBC STAT 07/06/2023 6:03 PM EDT PT INR STAT 07/06/2023 6:03 PM EDT APTT STAT 07/06/2023 6:03 PM EDT CBC STAT 07/06/2023 6:03 PM EDT GLUCOSE METER, POINT OF CARE LAZARA 07/06/2023 5:56 PM EDT documented in this encounter Results * ECG Interpret (07/06/2023 6:17 PM EDT) Erica Vizcaino MD - 07/06/2023 6:17 PM EDT Erica Miranda MD 07/06/2023 6:41 PM ECG Interpret Date/Time: 07/06/2023 6:17 PM Performed by: Erica Miranda MD Authorized by: Erica Miranda MD Previous ECG: Previous ECG: Unavailable Interpretation: Interpretation: abnormal Rate: ECG rate: 56 ECG rate assessment: bradycardic Rhythm: Rhythm: sinus rhythm Ectopy: Ectopy: PAC ST segments: ST segments: Abnormal Elevation: II, III and aVF Intervals: OH Interval: 158 QRS Interval: 102 QTc Interval: 526 Erica Miranda MD PROCEDURE REPORT * (ABNORMAL) DIFFERENTIAL, AUTOMATED (07/06/2023 6:03 PM EDT) WBC 16.69(H) 4.00 - 10.80 K/uL 07/06/2023 6:13 PM EDT LAB[facility]ATORY [facility] Neutrophils % 68.5 40.0 - 75.0 % 07/06/2023 6:13 PM EDT LABORATORY [facility] Lymphocytes % 22.7 18.0 - 42.0 % 07/06/2023 6:13 PM EDT [facility] Monocytes % 7.4 1.0 - 11.0 % 07/06/2023 6:13 PM EDT LABORATORY [facility] Eosinophils % 1.3 0.0 - 6.0 % 07/06/2023 6:13 PM EDT LABORATORY [facility] Basophils % 0.1 0.0 - 2.0 % 07/06/2023 6:13 PM EDT LAB[facility]ATORY [facility] Absolute Neutrophils 11.43(H) 1.80 - 7.70 K/uL 07/06/2023 6:13 PM EDT LAB[facility]ATORY [facility] Absolute Lymphocytes 3.79 1.00 - 4.80 K/ul 07/06/2023 6:13 PM EDT LAB[facility]ATORY [facility] Absolute Monocytes 1.23(H) 0.00 - 1.10 K/uL 07/06/2023 6:13 PM EDT LAB[facility]ATORY [facility] Absolute Eosinophils 0.22 0.00 - 0.70 K/uL 07/06/2023 6:13 PM EDT LAB[facility]ATORY [facility] Absolute Basophils 0.02 0.00 - 0.20 K/uL 07/06/2023 6:13 PM EDT [facility] Blood Venous blood specimen / Unknown Venipuncture / Unknown 07/06/2023 6:03 PM EDT 07/06/2023 6:08 PM EDT Erica Miranda MD LAB BLOOD ORDERABLES LABORATORY [address] [address] * (ABNORMAL) CBC (07/06/2023 6:03 PM EDT) [facility] WBC 16.69(H) 4.00 - 10.80 K/uL 07/06/2023 6:13 PM EDT LAB[facility]ATORY [facility] RBC 4.46 3.85 - 5.15 M/uL 07/06/2023 6:13 PM EDT [facility] HGB 14.8 12.0 - 15.3 g/dL 07/06/2023 6:13 PM EDT [facility] HCT 43.0 36.0 - 45.2 % 07/06/2023 6:13 PM EDT LAB[facility] MCV 96.4 81.5 - 97.5 fL 07/06/2023 6:13 PM EDT [facility] MCH 33.2 27.0 - 34.0 pg 07/06/2023 6:13 PM EDT LAB[facility]ATORY [facility] MCHC 34.4 32.0 - 36.0 g/dL 07/06/2023 6:13 PM EDT LAB[facility]ATORY [facility] RDW 12.1 11.5 - 15.5 % 07/06/2023 6:13 PM EDT [facility]ORY [facility] PLT 259 140 - 400 K/uL 07/06/2023 6:13 PM EDT LAB[facility]ORY [facility] MPV 12.4 6.6 - 11.1 fL 07/06/2023 6:13 PM EDT [facility] Blood Venous blood specimen / Unknown Venipuncture / Unknown 07/06/2023 6:03 PM EDT 07/06/2023 6:08 PM EDT Erica Miranda MD LAB BLOOD ORDERABLES LABORATORY [address] [address] * APTT (07/06/2023 6:03 PM EDT) aPTT 27 21 - 38 seconds 07/06/2023 6:19 PM EDT [facility]ATORY [facility] Blood Venous blood specimen / Unknown Venipuncture / Unknown 07/06/2023 6:03 PM EDT 07/06/2023 6:08 PM EDT Narrative LAB[facility]ATORY [facility] - 07/06/2023 6:19 PM EDT Anticoagulation may affect testing. Refer to [employer] Test Catalog for a list of effects. Erica Miranda MD LAB BLOOD ORDERABLES LABORATORY [address] [address] * PT INR (07/06/2023 6:03 PM EDT) Prothrombin Time 14.1 11.6 - 15.2 seconds 07/06/2023 6:19 PM EDT LAB[facility]ATORY [facility] INR 1.1 0.8 - 1.2 07/06/2023 6:19 PM EDT [facility] Blood Venous blood specimen / Unknown Venipuncture / Unknown 07/06/2023 6:03 PM EDT 07/06/2023 6:08 PM EDT Narrative LAB[facility]ATORY [facility] - 07/06/2023 6:19 PM EDT Warfarin Therapy INR: 2.0-3.0 conventional anticoagulation INR: 2.5-3.5 high intensity anticoagulation Erica Miranda MD LAB BLOOD ORDERABLES LABORATORY [address] [address] * TROPONIN T, HIGH SENSITIVITY (07/06/2023 6:03 PM EDT) Troponin T, High Sensitivity 9 <=14 ng/L 07/06/2023 6:34 PM EDT [facility]ATORY [facility] Blood Venous blood specimen / Unknown Venipuncture / Unknown 07/06/2023 6:03 PM EDT 07/06/2023 6:08 PM EDT Erica Miranda MD LAB BLOOD ORDERABLES [facility]AT[facility] [address] [place] [address] * (ABNORMAL) COMPREHENSIVE METABOLIC PANEL (07/06/2023 6:03 PM EDT) BUN 11 6 - 20 mg/dL 07/06/2023 6:28 PM EDT [facility] Creatinine 1.3(H) 0.5 - 1.0 mg/dL 07/06/2023 6:28 PM EDT [facility] Estimated Glomerular Filtration Rate 52(L) >=60 mL/min 07/06/2023 6:28 PM EDT [facility] Comment:eGFR is calculated b ased on the CKD-EPI 2020 equation Sodium 138 135 - 146 mmol/L 07/06/2023 6:28 PM EDT [facility] Potassium 3.8 3.5 - 5.1 mmol/L 07/06/2023 6:28 PM EDT LABORATORY [facility] Chloride 104 98 - 107 mmol/L 07/06/2023 6:28 PM EDT LABORATORY [facility] CO2 20(L) 22 - 32 mmol/L 07/06/2023 6:28 PM EDT [facility] Anion Gap 14 7 - 15 mmol/L 07/06/2023 6:28 PM EDT [facility] Glucose 148(H) 70 - 120 mg/dL 07/06/2023 6:28 PM EDT [facility] Albumin 4.3 3.5 - 4.4 g/dL 07/06/2023 6:28 PM EDT [facility] AST 22 10 - 35 U/L 07/06/2023 6:28 PM EDT LABORATORY [facility] Alkaline Phosphatase 86 35 - 130 U/L 07/06/2023 6:28 PM EDT [facility] Bilirubin, Total 0.8 <=1.2 mg/dL 07/06/2023 6:28 PM EDT LABORATORY [facility] Calcium 10.1 8.4 - 10.2 mg/dL 07/06/2023 6:28 PM EDT [facility] Protein, Total 7.4 6.0 - 8.3 g/dL 07/06/2023 6:28 PM EDT [facility] ALT 18 10 - 35 U/L 07/06/2023 6:28 PM EDT [facility] Blood Venous blood specimen / Unknown Venipuncture / Unknown 07/06/2023 6:03 PM EDT 07/06/2023 6:08 PM EDT Erica Miranda MD LAB BLOOD ORDERABLES Performing Organization Address [facility]/State/ZIP Co de Phone Number LABORATORY [address] [address] * (ABNORMAL) GLUCOSE METER, POINT OF CARE (07/06/2023 5:56 PM EDT) Glucose Meter 136(H) 70 - 120 mg/dL 07/06/2023 5:58 PM EDT [facility] Blood Whole blood specimen / Unknown 07/06/2023 5:56 PM EDT 07/06/2023 5:58 PM EDT Erica Miranda MD LAB POINT OF CARE TEST DOCKED DEVICE UNSOLICITED RESULTS Performing Organization Address [facility] de Phone Number LABORATORY [address] [address] documented in this encounter Visit Diagnoses Diagnosis Acute ST elevation myocardial infarction (STEMI) involving other coronary artery of inferior wall (HCC)- Primary documented in this encounter Administered Medications Inactive Administered Medications - up to 3 most recent administrations Medication Order MAR Action Action Date Dose Rate Site aspirin chew tab 324 mg 324 mg, Oral, ONCE, On 07/06/23 at 1830, For 1 dose, If not given by EMS Given 07/06/2023 6:00 PM EDT 324 mg hEParin 1000 UNIT/ML inj 4,000 Units 4,000 Units, IV Push, ONCE, On 07/06/23 at 1845, For 1 dose, Maximum 4,000 units for Acute Coronary Syndrome Given 07/06/2023 6:13 PM EDT 4,000 Units NSS infusion Intravenous, at 100 mL/hr, For hydration, CONTINUOUS, Starting on 07/06/23 at 1830, Until 07/06/23 at 2245 New Bag 07/06/2023 6:06 PM EDT 100 mL/hr documented in this encounter Active and Recently Administered Medications Times are shown in EDT. Scheduled Medication Order 07/04/2023 07/05/2023 07/06/2023 aspirin chew tab 324 mg (COMPLETED) 324 mg, Oral, ONCE, On 07/06/23 at 1830, For 1 dose, If not given by EMS 1800 (Given - Provid er: Niharika Alexandra, ALEXIS) hEParin 1000 UNIT/ML inj 4,000 Units (COMPLETED) 4,000 Units, IV Push, ONCE, On 07/06/23 at 1845, For 1 dose, Maximum 4,000 units for Acute Coronary Syndrome 1813 (Given - Provid er: Sybil Story RN) Continuous Medication Order 07/04/2023 07/05/2023 07/06/2023 NSS infusion Intravenous, at 100 mL/hr, For hydration, CONTINUOUS, Starting on 07/06/23 at 1830, Until 07/06/23 at 2245 1806 (New Bag - Prov ider: Niharika Alexandra RN)2245 (Due: Stopped) documented in this encounter Advance Directives Latest [...] and were consensually agreed upon. Care Teams Gift Wrapper Relationship Specialty Start Date End Date Yancy Horowitz MD [address] [place] [phone] PCP - General Family Medicine 03/13/22 documented as of this encounter"
--- OUTSIDE RECORDS SUMMARY | 2023-08-21 22:25 | External Medical Summary | Summary of Care ---
Author Name Unknown Organization [facility] Address [address] [facility] [place] [address] Phone [phone] Care Team Providers Care Ski Instructor Name Role Phone Yancy Horowitz MD Primary Care Provid er Encounter Details Date Type Department Care Team Description 07/15/2023 Telephone [facility] [address] [place] [address] Yancy Horowitz MD [address] [place] [address] Allergies Active Allergy Reactions Severity [...] (FLULAVAL or FLUZONE) 07/15/2023,06/21/2022,07/20/2021,09/08,08/20/2019,06/24/2018,07/11/2017 Seasonal Influenza, Quadriva jodyt, No Preserve, IM 08/23/2016,10/26/2015 TDAP (age 8 [...] Elizondo MD [address] [place] [address] 09/19/2023 Office Visit Sleep Disorders Raisa Perez DO [address] [place] [address] 10/10/2023 Office Visit Nephrology Jax Baird MD [address] [place] [address] 11/20/2023 Telemedicine Neurology Rita Coy PA-C [address] [place] [address] 01/02/2024 Office Visit Rheumatology Shashi Dawkins MD [address] [facility] [place] [address] 01/23/2024 Office Visit Family Medicine Yancy Horowitz MD [address] [place] [address] Health Maintenance Due Date Last Done Comments Hepatitis B (1 of 3 - 3-dose series) 1980 Pneumococcal Vaccine: Pediatrics (0 to 5 Years) and At-Risk Patients (6 to 64 Years) (3 - PPSV23 or PCV20) 10/26/2020 06/24/2018, 10/26/2015 COVID-19 Vaccine (4 - 2022- season) 2023 08/10/2021, 01/26/2021, 01/05/2021 Albumin/Creatinine Ratio 08/28/2023 08/28/2022, 0605/2022 Depression Screening 09/13/2023 09/13/2022 GFR 01/07/2024 07/08/2023, 1012/2022, 07/07/2023, Additional history exists CKD PHOS USE SMARTSET 23679 01/11/2024 01/10/2023, 1 Lipid Panel 01/13/2024 01/12/2019, 06/24/2018 DTaP,Tdap,and Td Vaccines (2 - Td or Tdap) 03/17/2024 03/17/2014 Mammogram 06/06/2024 06/06/2023, 05/07, 05/17/2022, Additional history exists CKD HGB USE SMARTSET 20950 07/08/202407/08, 07/07/2023, 07/06/2023, Additional history exists Pap [...] and were consensually agreed upon. Care Teams Ski Instructor Relationship Specialty Start Date End Date Yancy Horowitz MD [address] [place] [address] PCP - General Family Medicine 03/13/22 documented as of this encounter
--- OUTSIDE RECORDS SUMMARY | 2023-08-21 22:25 | External Medical Summary ---
Author Name Unknown Address Unknown Organization K1G:LABORATORY [facility] - [address] [place] [id number] Laboratory Report Ordering Provider Test Date Status DK JOHNSON 07/06/2023 18:03:50 Final Anticoagulation may affect t esting. Refer to [employer] Test Catalog for a list of effects. Observation Date Value Abnormality Reference (Units ) Status aPTT panel - Platelet poor plasma 07/06/2023 18:03:50 27 21-38 (seconds) Final Performing Location LABORATORY [facility] - [address] [place] [id number]
--- OUTSIDE RECORDS SUMMARY | 2023-08-21 22:25 | External Medical Summary ---
Author Name Unknown Address Unknown Organization R1WR:[facility] [address] [place] [address] Laboratory Report Ordering Provider Test Date Status JACQUELINE IVEY 07/06/2023 19:07:00 Final Observation Date Value Abnormality Reference (Units ) Status ACT - Activated Clotting Time 07/07/2023 14:50 185 Above high normal 74-137 (sec) Final Performing Location [facility] [address] [place] [address]
--- OUTSIDE RECORDS SUMMARY | 2023-08-21 22:25 | External Medical Summary | Summary of Care ---
Author Name Unknown Organization [facility] Address [address] [facility] [place] [address] Phone [phone] Care Team Providers Care Land Mobile Radio Technician Name Role Phone Yancy Horowitz MD Primary Care Provid er Encounter Details Date Type Department Care Team Description 07/15/2023 Telephone [facility] [address] [place] [address] Yancy Horowitz MD [address] [place] [address] Allergies Active Allergy Reactions Severity [...] encounter Miscellaneous Notes * Telephone Encounter - Yancy Horowitz MD - 07/15/2023 2:36 PM EDT Pt has yet to receive CPAP Recently diagnosed with inferior wall TN, s/p TY RCA Just checking in to make sure CPAP is on its way? AG documented in this encounter Plan of Treatment Upcoming Encounters Date Type Specialty Care Team Description 09/19/2023 Office Visit Sleep Disorders Raisa Perez, [address] [place] [address] 10/10/2023 Office Visit Nephrology Jax Baird MD [address] [facility] [place], [place] [address] 11/20/2023 Telemedicine Neurology Rita Coy PA-C [address] [facility] [place] [address] 01/02/2024 Office Visit Rheumatology Shashi Dawkins MD [address] [facility] [place], [place] [address] Health Maintenance Due Date Last Done Comments Hepatitis B (1 of 3 - 3-dose series) 1980 Pneumococcal Vaccine: Pediatrics (0 to 5 Years) and At-Risk Patients (6 to 64 Years) (3 - PPSV23 or PCV20) 10/26/2020 06/24/2018, 10/26/2015 COVID-19 Vaccine (4 - 2022-24 season) 2023 08/10/2021, 01/26/2021, 01/05/2021 Influenza Vaccine (FLU shot) (#1) 2023 06/21/2022, 07/20/2021, 09/08/2020, Additional history exists Albumin/Creatinine Ratio 08/28/2023 08/28/2022, 06/0 05/2022 Depression Screening 09/13/2023 09/13/2022 GFR 01/07/2024 07/08/2023, 1012/2022, 07/07/2023, Additional history exists CKD PHOS USE SMARTSET 07766 01/11/2024 01/10/2023, 1 Lipid Panel 01/13/2024 01/12/2019, 06/24/2018 DTaP,Tdap,and Td Vaccines (2 - Td or Tdap) 03/17/2024 03/17/2014 Mammogram 06/06/2024 06/06/2023, 05/07, 05/17/2022, Additional history exists CKD HGB USE SMARTSET 11932 07/08/202407/08, 07/07/2023, 07/06/2023, Additional history exists Pap [...] and were consensually agreed upon. Care Teams Land Mobile Radio Technician Relationship Specialty Start Date End Date Yancy Horowitz MD [address] [place] [address] PCP - General Family Medicine 03/13/22 documented as of this encounter
--- OUTSIDE RECORDS SUMMARY | 2023-08-21 22:25 | External Medical Summary ---
Author Name Unknown Address Unknown Organization R1WR:[facility] [address] [place] [address] Laboratory Report Ordering Provider Test Date Status JACQUELINE IVEY 07/07/2023 13:40:00 Final Observation Date Value Abnormality Reference (Units ) Status CPK 07/07/2023 14:19 679 Above high normal 34-14 5 (U/L) Final CKMB 07/07/2023 14:21 59.3 Above upper panic limit s 0.0-5.0 (ng/mL) Final EDIN CALLED CRITICAL RES ULTS AT [id number] 1420. THE RESULTS WERE READ BACK AND VERIFIED BY: AUDREY ICU Performing Location [facility] [address] [place] [address]
--- OUTSIDE RECORDS SUMMARY | 2023-08-21 22:25 | External Medical Summary | Summary of Care ---
Author Name Unknown Organization [facility] Address [address] [facility] [place] [address] Phone [phone] Care Team Providers Care Records Analyst Name Role Phone Yancy Horowitz MD Primary Care Provid er Reason for Visit * Reason Onset Date Comments Order Request 07/15/2023 Encounter Details Date Type Department Care Team Description 07/15/2023 Telephone [facility] [address] [place] [address] Yancy Horowitz MD [address] [place] [address] Order Request Allergies Active Allergy Reactions Severity Noted Date [...] mRNA, LNP-s, No Pre serve, 2-Dose Series (Feebbo) 08/10/2021,01/26/2021,01/05/2021 Pneumococcal Conjugate Vacc, 13 Valent (Prevnar) [...] encounter Miscellaneous Notes * Telephone Encounter - Zulma Meza LPN - 07/16/2023 12:40 PM EDT Order has been submitted to [facility] sleep techs * Telephone Encounter - Raisa Perez DO - 07/15/2023 3:56 PM EDT Please check with DME * Telephone Encounter - Yancy Horowitz MD - 07/15/2023 2:36 PM EDT Pt has yet to receive CPAP Recently diagnosed with inferior wall VT, s/p TY RCA Just checking in to make sure CPAP is on its way? AG documented in this encounter Plan of Treatment Upcoming Encounters Date Type Specialty Care Team Description 09/15/2023 Office Visit Cardiology Francisco Elizondo MD [address] [place] [address] 09/19/2023 Office Visit Sleep Disorders Raisa Perez DO [address] [place] [address] 10/10/2023 Office Visit Nephrology Jax Baird MD [address] [facility] [place], [place] [address] 11/20/2023 Telemedicine Neurology Rita Coy PA-C [address] [facility] [place], [place] [id number] 01/02/2024 Office Visit Rheumatology Shashi Dawkins MD [address] [facility] [place], [place] [address] 01/23/2024 Office Visit Family Medicine Yancy Horowitz MD [address] [place] [address] Health Maintenance Due Date Last Done Comments Hepatitis B (1 of 3 - 3-dose series) 1980 Pneumococcal Vaccine: Pediatrics (0 to 5 Years) and At-Risk Patients (6 to 64 Years) (3 - PPSV23 or PCV20) 10/26/2020 06/24/2018, 10/26/2015 COVID-19 Vaccine ( - 2022-24 season) 2023 08/10/2021, 01/26/2021, 01/05/2021 Albumin/Creatinine Ratio 08/28/2023 08/28/2022, 0605/2022 Depression Screening 09/13/2023 09/13/2022 GFR 01/07/2024 07/08/2023, 100 12/2022, 07/07/2023, Additional history exists CKD PHOS USE SMARTSET 12608 01/11/2024 01/10/2023, 1 Lipid Panel 01/13/2024 01/12/2019, 06/24/2018 DTaP,Tdap,and Td Vaccines (2 - Td or Tdap) 03/17/2024 03/17/2014 Mammogram 06/06/2024 06/06/2023, 08/02/2022, 05/17/2022, Additional history exists CKD HGB USE SMARTSET 39310 07/08/202407/08, 07/07/2023, 07/06/2023, Additional history exists Pap Smear 09/13/2025 09/13/2022, 1102/2019, 03/28/2016, Additional history exists Diabetes Screening 07/06/2026 [...] and were consensually agreed upon. Care Teams Records Analyst Relationship Specialty Start Date End Date Yancy Horowitz MD [address] [place] [facility] [place] [address] PCP - General Family Medicine 03/13/22 documented as of this encounter
--- OUTSIDE RECORDS SUMMARY | 2023-08-21 22:25 | External Medical Summary ---
Author Name Unknown Address Unknown Organization R1WR:[facility] [address] [place] [address] Laboratory Report Ordering Provider Test Date Status CELI LIMA 07/08/2023 05:17:00 Final Observation Date Value Abnormality Reference (Units ) Status Glucose 07/08/2023 05:56 86 70-99 (mg/dL) Final The reference interval for F asting glucose is 70 to 99. The reference interval for Random Glucose is 70 to 139. BUN 07/08/2023 05:56 8 Below low normal 9-23 ( mg/dL) Final Creatinine 07/08/2023 05:56 0.88 0.55-1.02 (m g/dL) Final eGFR 07/08/2023 05:56 83 >59 (mL/min/1 .73m2) Final eGFR = 142 X [min(Scr/k,1)]* *a [max(Scr/k,1)-1.200x0.9938age X 1.012 [if female] Where Scr is serum creatinine; k is 0.7 for females and 0.9 males; a is -0.241 for females and -0.302 for males; min indicates the minimum of Scr/k or 1, max indicates the maximum of Scr/k or 1 Sodium 07/08/2023 05:56 138 136-145 (mmol /L) Final Potassium 07/08/2023 05:56 3.8 3.4-5.0 (mmol /L) Final Hemolysis: Results may be ad versely affected. Recommend recollect. Chloride 07/08/2023 05:56 107 98-112 (mmol/ L) Final CO2 07/08/2023 05:56 24 20-31 (mmol/L ) Final Anion Gap 07/08/2023 05:56 11 7-15 (mmol/L) Final Calcium 07/08/2023 05:56 8.8 8.3-10.6 (mg/ dL) Final Performing Location [facility] [address] [place] [address]
--- OUTSIDE RECORDS SUMMARY | 2023-08-21 22:25 | External Medical Summary | Summary of Care ---
Author Name Unknown Organization [facility] Address [address] [place] [address] Phone [phone] Care Team Providers Care Trimmer Climber Name Role Phone Brent Fernandez MD Primary Care Provid er Reason for Referral * Evaluate & Treat - Unlimited Visits (Within 30 days (routine)) - Authorized Specialty Diagnoses / Procedures Referred By Contac t Referred To Contact Pharmacist / Pharmacy Diagnoses Tobacco use disorder Brent Fernandez MD [address] [place] [address] Referral ID Status Reason Start Date Expiration Date Visits Requested Visits Authorized [id number] Authorized Specialty Services Required 3 99 99 Question Answer Referral Priority Within 30 days (routine) Where should this appointment be scheduled? [facility] Department: Primary Care Reason for Referral: Smoking Cessation Comments Pharmacist Medication Therapy Management: Minimum frequency patient should be seen in person for medication management: as appropriate per clinical condition and patient status By my signature, I understand that my patient Saqib Belle will have her medication therapy managed by the [facility] Medication Therapy [facility] ([facility]) per established policies, procedures, and protocols. I also certify that this referral may serve as an initiation of service for the management of drug therapy in the above noted patient. [facility] providers will be responsible for scheduling patient visits, obtaining appropriate laboratory studies, and adjusting medication management therapy per patient's need, in addition to those roles spelled out in the clinic policy, procedures, and drug management protocols. I understand that the service provided by the [facility] Clinic is voluntary and have informed patient that they can refuse the service at their discretion. I am aware that the [facility] Clinic will provide me with a copy of the patient encounter via my [employer]. I authorize the [facility] to carry out these activities on my behalf. I consider this program to be a necessary part of the patient's medical care. Brent Fernandez MD Encounter Details Date Type Department Care Team Description 07/15/2023 Telephone [facility] [address] [place] [address] Brent Fernandez MD [address] [place] [address] Allergies Active Allergy Reactions Severity Noted Date Comments Penicillin G 05/14/2012 Hives remote documented as of this encounter (statuses as of 07/20/2023) Medications Medication Sig Dispensed Refills Start Date [...] as of this encounter (statuses as of 07/20/2023) Active Problems Problem Noted Date Greater trochanteric [...] as of this encounter (statuses as of 07/20/2023) Resolved Problems Problem Noted Date Resolved Date [...] as of this encounter (statuses as of 07/20/2023) Immunizations Name Administration Dates Next Due COVID-19 [...] as of this encounter Miscellaneous Notes * Addendum Note - Brent Fernandez MD - 07/20/2023 12:46 PM EDTAddended by: BRENT FERNANDEZ on: 07/20/2023 12:46 PM Modules accepted: Orders * Telephone Encounter - Brent Fernandez MD - 07/20/2023 12:45 PM EDT Pt agreeable to MTM referral for smoking cessation documented in this encounter Plan of Treatment Upcoming Encounters Date Type Specialty Care Team Description 08/15/2023 Office Visit Cardiology Unruly Pinto, DO [address] [place] [address] 09/19/2023 Office Visit Sleep Disorders Raisa Perez, DO [address] [place] [address] 10/10/2023 Office Visit Nephrology Jax Baird MD [address] [place] [address] 11/20/2023 Telemedicine Neurology Rita Coy PA-C [address] [place] [address] 01/02/2024 Office Visit Rheumatology Shashi Dawkins MD [facility] [place] [address] 01/23/2024 Office Visit Family Medicine Brent Fernandez MD [address] [place] [address] Scheduled Referrals Name Type Priority Associated Diagnoses Orde r Schedule PHARMACIST MEDS THERAPY MGMT REFERRAL OP Referral Within 30 days (routine) Tobacco use disorder Ordered: 07/20/2023 Health Maintenance Due Date Last Done Comments [...] Additional history exists CKD PHOS USE SMARTSET 70523 01/11/2024 01/10/2023, 1 Lipid Panel 01/13/2024 01/12/2019, 06/24/2018 DTaP,Tdap,and Td Vaccines (2 - Td or Tdap) 03/17/2024 03/17/2014 Mammogram 06/06/2024 06/06/2023, 05/07, 05/17/2022, Additional history exists CKD HGB USE SMARTSET 60041 07/08/202407/08, 07/07/2023, 07/06/2023, Additional history exists Pap [...] as of this encounter Visit Diagnoses Diagnosis Tobacco use disorder- Primary documented in this encounter Advance Directives Latest [...] and were consensually agreed upon. Care Teams Trimmer Climber Relationship Specialty Start Date End Date Brent Fernandez MD [address] [facility] [place] [address] PCP - General Family Medicine 03/13/22 documented as of this encounter
--- OUTSIDE RECORDS SUMMARY | 2023-08-21 22:25 | External Medical Summary ---
Author Name Unknown Address Unknown Organization K1G:[facility] - [address] [facility] [address] Laboratory Report Ordering Provider Test Date Status DK JOHNSON 07/06/2023 18:03:50 Final Observation Date Value Abnormality Reference (Units ) Status BUN 07/06/2023 18:03:50 11 6-20 (mg/dL) Final Creatinine 07/06/2023 18:03:50 1.3 Above high normal 0.5-1.0 (mg/dL) Final Glomerular filtration rate/1.73 sq M.predicted [Volume Rate/Area] in Serum, Plasma or Blood by Creatinine-based formula (CKD-EPI) 07/06/2023 18:03:50 52 Below low normal >=60 (mL/min) Final eGFR is calculated based on the CKD-EPI 2020 equation Sodium 07/06/2023 18:03:50 138 135-146 (m mol/L) Final Potassium 07/06/2023 18:03:50 3.8 3.5-5.1 (m mol/L) Final Cl 07/06/2023 18:03:50 104 98-107 (mm ol/L) Final CO2 07/06/2023 18:03:50 20 Below low normal 22- 32 (mmol/L) Final Anion gap 07/06/2023 18:03:50 14 7-15 (mmol /L) Final Glucose 07/06/2023 18:03:50 148 Above high normal 70 -120 (mg/dL) Final Albumin 07/06/2023 18:03:50 4.3 3.5-4.4 (g /dL) Final AST (Aspartate aminotransferase) 07/06/2023 18:03:50 22 10-35 (U/L) Fin al Alk Phos 07/06/2023 18:03:50 86 35-130 (U/ L) Final Bilirubin, Total 07/06/2023 18:03:50 0.8 <=1 .2 (mg/dL) Final Calcium 07/06/2023 18:03:50 10.1 8.4-10.2 ( mg/dL) Final Protein 07/06/2023 18:03:50 7.4 6.0-8.3 (g /dL) Final ALT (Alanine aminotransferase) 07/06/2023 18:03:50 18 10-35 (U/L) Robert hillman Performing Location [facility] - [address] [place] [id number]
--- OUTSIDE RECORDS SUMMARY | 2023-08-21 22:25 | External Medical Summary | Summary of Care ---
Author Name Unknown Organization [facility] Address [address] [place] [place] [address] Phone [phone] Care Team Providers Care Vamper Name Role Phone Yancy Horowitz MD Primary Care Provid er Reason for Referral * Evaluate & Treat - Unlimited Visits (Within 30 days (routine)) - Authorized Specialty Diagnoses / Procedures Referred By Contact Referred To Contact Cardiovascular Medicine / Cardiology Diagnoses Acute ST elevation myocardial infarction (STEMI) involving right coronary artery (HCC) Yancy Horowitz MD [address] [place] [address] Referral ID Status Reason Start Date Expiration Date Visits Requested Visits Authorized [id number] Authorized Specialty Services Required 3 [phone] Question Answer Referral Priority Within 30 days (routine) Where should this appointment be scheduled? [facility] To which of the following clinics are you referring your patient? General Cardiology Clinic Reason for Visit * Reason Onset Date Comments Hospital Follow-Up Heart attack Medication Administration 07/15/2023 Flu an d/or Pneumo Inj Hospital Follow-Up 07/15/2023 Encounter Details Date Type Department Care Team Description 07/15/[address] [facility] [place] [address] [place] [address] Yancy Horowitz MD [address] [facility] [place] [address] Hospital discharge follow-up*; Elevated liver enzymes; Obesity, Class I, BMI 30.0-34.9 (see actual BMI); Snoring; Encounter for long-term (current) use of medications; Class 2 obesity due to excess calories without serious comorbidity in adult, unspecified BMI; Acute ST elevation myocardial infarction (STEMI) involving right coronary artery (HCC); Need for prophylactic vaccination and inoculation against influenza; Tobacco abuse counseling [Z71.6 (ICD-10-CM)] Allergies Active Allergy Reactions Severity Noted Date [...] mouth in the morning. 0 07/07/2023 Active Wegovy 2.4 MG/0.75ML Subcutaneous Solution Auto-injector (Semaglutide-CloudSyncg ht Management)Indica tions:Encounter for long-term (current) use of medications,Class 2 obesity due to excess calories without serious comorbidity in adult, unspecified BMI,Snoring,[place] liver enzymes,Obesity, Class I, BMI 30.0-34.9 (see actual BMI) Inject 2.4 mg under the skin once a week. 3 mL 5 05/02/2023 07/15/20 23 Discontinued(Ref ill) Metoprolol Succinate ER 25 MG Oral Tablet Extended Release 24 Hour (Toprol XL) Take 1 Tablet by mouth in the morning. 0 07/15/20 23 Discontinued documented as of this encounter (statuses [...] mRNA, LNP-s, No Pre serve, 2-Dose Series (RegisterPatient) 08/10/2021,01/26/2021,01/05/2021 Pneumococcal Conjugate Vacc, 13 Valent (Prevnar) [...] Tobacco: Never Tobacco Cessation:Ready to Q uit: Not Asked; Counseling Given: Not Answered Comments:4 cig Alcohol Use Standard Drinks/Week Comments No 0 (1 standard drink = 0.6 oz pur e alcohol) denies Sex Assigned at Date Recorded Female 08/15/2022 4:[address] Job Start Date Occupation Industry Not on file Not on file Not on file documented as of this encounter Last Filed Vital Signs Vital Sign Reading Time Taken Comments Blood Pressure 106/82 07/15/2023 2:00 PM EDT Pulse 66 07/15/2023 2:00 PM EDT Temperature 36.3 C (97.3 F) 07/15/2023 2:00 PM ED T Respiratory Rate 16 07/15/2023 2:00 PM EDT Oxygen Saturation 99% 07/15/2023 2:00 PM EDT Inhaled Oxygen Concentration - - Weight 83.8 kg (184 lb 11.2 oz) 07/15/2023 2:00 PM EDT Height 165.1 cm (5' 5") 07/15/2023 2:00 PM EDT Body Mass Index 30.74 07/15/2023 2:00 PM EDT documented in this encounter Patient Instructions * Patient Instructions* AFUA Lua - 07/15/2023 2:34 PM EDT Resources to help you become tobacco free: The [place] [employer] hosts the [place] From Smoking group that helps assistant women's tennis coach the smoker to quit. They offer free support and tools to get the person to stop smoking. The CDC mentions calling 5-326-PUPZ-NOW ( ). ~~PATIENT INSTRUCTIONS FOR FLU SHOT~~ Possible side effects of influenza vaccine, (flu shot), are usually mild and include: 1. Soreness or redness at injection site 2. Low grade fever 3. Body aches You may use Tylenol/Acetaminophen as needed for these symptoms. LET YOUR DOCTOR KNOW IMMEDIATELY IF YOU HAVE DIFFICULTY BREATHING OR SWALLOWING, EXPERIENCE ITCHINGOF FEET OR HANDS, HAVE SWELLING OF EYES, FACE OR INSIDE OF NOSE. documented in this encounter Progress Notes * AFUA Lua - 07/15/2023 2:53 PM EDT PRE - ADMINISTRATION DOCUMENTATION Are you experiencing any cold symptoms or fever? No Have you had Guillain-Cantil Syndrome (an illness that causes paralysis) within the last 6 weeks? No Have you had the flu shot in the past? YES Have you ever had a reaction to the flu shot? No AFUA Lua, 07/15/2023 2:53 PM Immunization Administration Documentation Time Out Procedure Performed: Yes Patient Identified (Ask Name/Date of ): Yes Does the patient have a fever greater than 101 degrees today? No Patient allergic to latex? No VFC Stock: No Immunization(s) verified: Yes, Immunization Name: Flu, VIS Sheet(s) given: Yes Verified Side and Site: Yes Verified Shot(s) with Parent(s)/Patient: Yes * Yancy Horowitz MD - 07/15/2023 2:29 PM EDT ASSESSMENT / PLAN: Saqib Belle is a 42 year old female with PMHx SLE / CKD 3 / tobacco use / obesity / dyspepsia -Here for MELIDA - admitted at [facility] the following dates 07/06- 07/09 Presented with: [...] tomorrow but needs to establish locally with [facility] - referral placed. Nursing will get notes from [facility] for our review. Has not yet received CPAP from supplier - messg sent to Sleep med physician alerting her. #Cigarette use / cessation counseling Motivated to quit, and therefore advised to quit. Reviewed negative impacts of smoking including cancer, pulmonary function, and bone health. Reviewed methods and skills for cessation including nicotine replacement and or medication management with chantix or wellbutrin. Resources for support provided in patient instructions. Pt elects the following: quit will call quit line first Amount of time spent: 5 minutes. Would benefit from MTM referral smoking cessation - Myg sent Follow Up: Return in about 6 months (around 01/14/2024). Hospital discharge follow-up (Primary) - [facility] MED RECON CUR MED LIS Elevated liver enzymes - Wegovy 2.4 MG/0.75ML Subcutaneous Solution Auto-injector (Semaglutide-Weight Management); Inject 2.4 mg under the skin once a week. - DISCH MED RECON CUR MED LIS Obesity, Class I, BMI 30.0-34.9 (see actual BMI) - Wegovy 2.4 MG/0.75ML Subcutaneous Solution Auto-injector (Semaglutide-Weight Management); Inject 2.4 mg under the skin once a week. - DISCH MED RECON CUR MED LIS Snoring - Wegovy 2.4 MG/0.75ML Subcutaneous Solution Auto-injector (Semaglutide-Weight Management); Inject 2.4 mg under the skin once a week. - DISCH MED RECON CUR MED LIS Encounter for long-term (current) use of medications - Wegovy 2.4 MG/0.75ML Subcutaneous Solution Auto-injector (Semaglutide-Weight Management); Inject 2.4 mg under the skin once a week. - DISCH MED RECON CUR MED LIS Class 2 obesity due to excess calories without serious comorbidity in adult, unspecified BMI - Wegovy 2.4 MG/0.75ML Subcutaneous Solution Auto-injector (Semaglutide-Weight Management); Inject 2.4 mg under the skin once a week. - DISCH MED RECON CUR MED LIS Acute ST elevation myocardial infarction (STEMI) involving right coronary artery (HCC) - CARDIOLOGY REFERRAL OP - COMPREHENSIVE METABOLIC PANEL; Future; Expected date: 08/15/2023 - LIPID PANEL WITH DIRECT LDL IF TG IS HIGH; Future; Expected date: 08/15/2023 - DISCH MED RECON CUR MED LIS Need for prophylactic vaccination and inoculation against influenza - INFLUENZA VACC, QUAD, PF, 6 MONTHS & UP, 0.5 ML, IM - DISCH MED RECON CUR MED LIS Tobacco abuse counseling [Z71.6 (ICD-10-CM)] - DISCH MED RECON CUR MED LIS Follow Up: Return in about 6 months (around 01/14/2024). If needed, prefers contact by: Ok to leave message on phone: SUBJECTIVE: Nursing Notes: Est[facility] 07/15/23 1402 Signed Saqib Belle is a 42 year old female who presents today for Chief Complaint Patient presents with Hospital Follow-Up Heart attack HPI: Saqib Belle is a 42 year old female. Here for MELIDA - new diagnosis of STEMI, see a/p. She is motivated to quit H/o 10-12 cigarettes daily x 30 years Now down to 6 cig/day Barriers: Mom and both smoke Reviewed sources -[facility] notes from patient's phone jonatan Patient Active Problem List Diagnosis Code SS-A antibody positive R76.8 SLE (systemic lupus erythematosus) ([facility]) M32.9 Encounter for long-term (current) use of medications Z79.899 Primary osteoarthritis of both first carpometacarpal joints M18.0 Intractable chronic migraine without aura and without status migrainosus G43.719 Severe major depression ([facility]) F32.2 Tobacco use disorder F17.200 Arthritis of carpometacarpal (CMC) joints of both thumbs M18.0 Chronic kidney disease, stage 3a ([facility]) N18.31 Greater trochanteric bursitis, left M70.62 Current Outpatient Medications Medication Sig Dispense Refill QUEtiapine Fumarate 100 MG Oral Tablet (SEROquel) Take 1 Tablet (100 mg) by mouth at bedtime. 90 Tablet 1 DULoxetine HCl 60 MG Oral Capsule Delayed Release Particles (Cymbalta) TAKE 1 CAPSULE BY MOUTH ONCEDAILY DO NOT CUT, CRUSH OR CHEW 90 Capsule 1 Hydroxychloroquine Sulfate 200 MG Oral Tablet (Plaquenil) Take 2 Tablets by mouth in the morning. 180 Tablet 3 Gabapentin 300 MG Oral Capsule (Neurontin) Take 2 Capsules by mouth at bedtime. 60 Capsule 3 Verapamil HCl ER 240 MG Oral Tablet Extended Release (Isoptin SR) Take 1 tablet by mouth once daily90 Tablet 0 Wegovy 2.4 MG/0.75ML Subcutaneous Solution Auto-injector (Semaglutide-Weight Management) Inject 2.4mg under the skin once a week. 3 mL 5 Aspirin 81 MG Oral Capsule Take by mouth. Atorvastatin Calcium 80 MG Oral Tablet (Lipitor) Take 1 Tablet by mouth in the morning. Losartan Potassium 25 MG Oral Tablet (Cozaar) Take 1 Tablet by mouth in the morning. Nitroglycerin 0.4 MG Sublingual Tablet Sublingual (Nitrostat) Place 1 Tablet under the tongue every5 minutes as needed for Pain, Chest. Prasugrel HCl 10 MG Oral Tablet (Effient) Take 1 Tablet by mouth in the morning. No current facility-administered medications for this visit. OBJECTIVE: BP 106/82 (BP Site: Right Arm, BP Position: Sitting, BP Cuff Size: Regular) | Pulse 66 | Temp 36.3 C (97.3 F) (Temporal Artery) | Resp 16 | Ht 1.651 m (5' 5") | Wt 83.8 kg (184 lb 11.2 oz) | KnD941% | BMI 30.74 kg/m | BSA 1.96 m Vitals reviewed and is normotensive / afebrile / and not tachycardic General: No acute distress. Neuro: Alert Pleasant & interactive. Respiratory: Good inspiratory effort, no labored breathing. CTAB CV: RRR no M R G HEENT: Conjunctivae appear clear. No swelling noted face or lips. Skin: No rash visible on exposed skin areas, normal coloration & appears dry. Psych: Normal affect. Fluent speech. Yancy Horowitz MD [address] [address] Patient Instructions Resources to help you become tobacco free: The [place] [employer] hosts the [place] From Smoking group that helps assistant women's tennis coach the smoker to quit. They offer free support and tools to get the person to stop smoking. The CDC mentions calling 7-624-ZUNI-NOW ( ). ~~PATIENT INSTRUCTIONS FOR FLU SHOT~~ Possible side effects of influenza vaccine, (flu shot), are usually mild and include: 1. Soreness or redness at injection site 2. Low grade fever 3. Body aches You may use Tylenol/Acetaminophen as needed for these symptoms. LET YOUR DOCTOR KNOW IMMEDIATELY IF YOU HAVE DIFFICULTY BREATHING OR SWALLOWING, EXPERIENCE ITCHINGOF FEET OR HANDS, HAVE SWELLING OF EYES, FACE OR INSIDE OF NOSE. documented in this encounter Nursing Notes * AFUA uLa - 07/15/2023 2:00 PM EDT Saqib Belle is a 42 year old female who presents today for Chief Complaint Patient presents with Hospital Follow-Up Heart attack documented in this encounter Plan of Treatment Upcoming Encounters Date Type Specialty Care Team Description 09/15/2023 Office Visit Cardiology Francisco Elizondo MD [address] [place] [address] 09/19/2023 Office Visit Sleep Disorders Raisa Perez DO [address] [place] [address] 10/10/2023 [facility] [address] [facility] [address] 11/20/2023 Telemedicine Neurology Rita Coy [facility]C [address] [facility] [address] 01/02/2024 Office Visit Rheumatology Shashi Dawkins MD [address] [facility] [place] [address] 01/23/2024 Office Visit Family Medicine Yancy Horowitz MD [address] [place] [address] Scheduled Orders Name Type Priority Associated Diagnoses Orde r Schedule COMPREHENSIVE METABOLIC PANEL Lab Routine Acute ST elevation myocardial infarction (STEMI) involving right coronary artery (HCC) Expected: 08/15/2023 (Approximate), Expires: 08/15/2024 LIPID PANEL WITH DIRECT LDL IF TG IS HIGH Lab Routine Acute ST elevation myocardial infarction (STEMI) involving right coronary artery (HCC) Expected: 08/15/2023 (Approximate), Expires: 08/15/2024 Scheduled Referrals Name Type Priority Associated Diagnoses Orde r Schedule CARDIOLOGY REFERRAL OP Referral Within 30 days (routine) Acute ST elevation myocardial infarction (STEMI) involving right coronary artery (HCC) Ordered: 07/15/2023 Health Maintenance Due Date Last Done Comments [...] Additional history exists CKD PHOS USE SMARTSET 80165 01/11/2024 01/10/2023, 1 Lipid Panel 01/13/2024 01/12/2019, 06/24/2018 DTaP,Tdap,and Td Vaccines (2 - Td or Tdap) 03/17/2024 03/17/2014 Mammogram 06/06/2024 06/06/2023, 08/02/2022, 05/17/2022, Additional history exists CKD HGB USE SMARTSET 23586 07/08/202407/08, 07/07/2023, 07/06/2023, Additional history exists Pap [...] as of this encounter Visit Diagnoses Diagnosis Hospital discharge follow-up- Primary Other follow-up examination Elevated liver enzymes Nonspecific elevation of levels of transaminase or lactic acid dehydrogenase (LDH) Obesity, Class I, BMI 30.0-34.9 (see actual BMI) Obesity, unspecified Snoring Other dyspnea and respiratory abnormality Encounter for long-term (current) use of medications Encounter for long-term (current) use of other medications Class 2 obesity due to excess calories without serious comorbidity in adult, unspecified BMI Acute ST elevation myocardial infarction (STEMI) involving right coronary artery (HCC) Need for prophylactic vaccination and inoculation against influenza Tobacco abuse counseling [Z71.6 (ICD-10-CM)] Counseling on substance use and abuse documented in this encounter Advance Directives Latest [...] and were consensually agreed upon. Care Teams Vamper Relationship Specialty Start Date End Date Yancy Horowitz MD [address], [place] [id number] PCP - General Family Medicine 03/13/22 documented as of this encounter
--- OUTSIDE RECORDS SUMMARY | 2023-08-21 22:26 | External Medical Summary | Summary of Care ---
Author Name Unknown Organization [facility] Address [address] [facility] [place] [address] Phone [phone] Care Team Providers Care Special Needs Babysitter Name Role Phone Brent Horowitz MD Primary Care Provid er Reason for Visit * Reason Onset Date Comments Medication Refill 05/01/2023 Encounter Details Date Type Department Care Team Description 05/01/2023 Refill [facility] [address] [place] [address] Brent Horowitz MD [address] [place] [address] Encounter for long-term (current) use of medications*; Class 2 obesity due to excess calories without serious comorbidity in adult, unspecified BMI; Snoring; Elevated liver enzymes; Obesity, Class I, BMI 30.0-34.9 (see actual BMI) Allergies Active Allergy Reactions Severity Noted Date Comments Penicillin G 05/14/2012 Hives remote documented as of this encounter (statuses as of 05/02/2023) Medications Medication Sig Dispensed Refills Start Date End Date Status Magnesium Oxide 400 MG Oral Capsule Take 1 Capsule (400 mg) by mouth in the morning. 30 Capsule 2 08/28/2022 Active Riboflavin 100 MG Oral Tablet (Riboflavin) Take 4 Tablets (400 mg) by mouth daily with breakfast. 120 Tablet 5 08/28/2022 Active QUEtiapine Fumarate 100 MG Oral Tablet (SEROquel)Indicati ons:Moderate episode of recurrent major depressive disorder (HCC),ALEXIS (generalized anxiety disorder),PTSD (post-traumatic stress disorder) Take 1 Tablet (100 mg) by mouth at bedtime. 90 Tablet 1 09/09/2022 Active Zolpidem Tartrate 5 MG Oral Tablet (Ambien) Take 1 Tablet by mouth at bedtime. 30 to 60 minutes prior to sleep. 1 Tablet 0 01/10/2023 Active DULoxetine HCl 60 MG Oral Capsule [...] Gabapentin 300 MG Oral Capsule (Neurontin) Take 1 capsule by mouth at bedtime 30 Capsule 3 05/01/2023 Active Wegovy 2.4 MG/0.75ML Subcutaneous Solution Auto-injector (Semaglutide-Weigh t Management)Indicat ions:Encounter for long-term (current) use of medications,Class 2 obesity due to excess calories without serious comorbidity in adult, unspecified BMI,Snoring,Elevat ed liver enzymes,Obesity, Class I, BMI 30.0-34.9 (see actual BMI) Inject 2.4 mg under the skin once a week. 3 mL 5 05/02/2023 3 Active Wegovy 1.7 MG/0.75ML Subcutaneous Solution Auto-injector (Semaglutide-Weigh t Management) Inject 1.7 mg under the skin once a week. 3 mL 1 04/07/2023 3 Discontinued documented as of this encounter (statuses as of 05/02/2023) Active Problems Problem Noted Date Greater trochanteric [...] as of this encounter (statuses as of 05/02/2023) Resolved Problems Problem Noted Date Resolved Date [...] as of this encounter (statuses as of 05/02/2023) Immunizations Name Administration Dates Next Due COVID-19 mRNA, LNP-s, No Pre serve, 2-Dose Series (Pfizer) 08/10/2021,01/26/2021,01/05/2021 Pneumococcal Conjugate Vacc, 13 Valent (Prevnar) 06/24/2018 Pneumococcal Polysaccharide PPV23 (Pneumovax) 10/26/2015 Seasonal Influenza, Quadriva lent, No Preserve, 6 Mons & Above, IM 06/21/2022,07/20/2021,09/08/2020,08/20,06/24/2018,07/11/2017 Seasonal Influenza, Quadriva lent, No Preserve, [...] Date Recorded Female 08/15/2022 4:05 PM E [employer] Job Start Date Occupation Industry Not on file Not on file Not on file documented as of this encounter Miscellaneous Notes * Telephone Encounter - Brent Horowitz MD - 05/02/2023 5:07 PM EDT Signed Prescriptions: Disp Refills Wegovy 2.4 MG/0.75ML Subcutaneous Solution*3 mL 5 Sig: Inject 2.4 mg under the skin once a week.Authorizing Provider: BRENT HOROWITZ * Telephone Encounter - Brent Horowitz MD - 05/02/2023 5:07 PM EDT signed * Telephone Encounter - Yesenia Blackmon [facility] - 05/02/2023 11:52 AM EDTPending Prescriptions: Disp Refills Wegovy 1.7 MG/0.75ML Subcutaneous Solution*3 mL 1 Sig: Inject 1.7 mg under the skin once a week. * Telephone Encounter - Yesenia Blackmon [facility] - 05/02/2023 11:52 AM EDT Please see MyG. Patient ready to move up to next dose & approve as appropriate. Thanks, Yesenia Blackmon Clinical Pharmacist [facility] ([facility]) [phone] 05/02/2023, 11:52 AM documented in this encounter Plan of Treatment Upcoming Encounters Date Type Specialty Care Team Description 05/15/2023 Telemedicine Neurology Rita Coy PA-C [address] [place] [address] 06/06/2023 Imaging Radiology 07/11/2023 Office Visit Family Medicine Brent Horowitz MD [address] [place] [address] 10/10/2023 Office Visit Nephrology Jax Baird MD [address] [place], [place] [address] 01/02/2024 Office Visit Rheumatology Shashi Dawkins MD [facility] [place], [place] [address] Health Maintenance Due Date Last Done Comments Hepatitis B (1 of 3 - 3-dose series) 1980 Pneumococcal Vaccine: Pediatrics (0 to 5 Years) and At-Risk Patients (6 to 64 Years) (3 - PPSV23 or PCV20) 10/26/2020 06/24/2018, 10/26/2015 COVID-19 Vaccine (4 - Pfizer risk series) 10/05/2021 08/10/2021, 01/26/2021, 01/05/2021 Mammogram 05/30/2023 05/30/2022, 05/06, 05/17/2021, Additional history exists GFR 06/02/2023 12/03/2022, 08/07, 06/21/2022, Additional history exists Influenza Vaccine (FLU shot) (#1) 2023 06/21/2022, 07/20/2021, 09/08/2020, Additional history exists Albumin/Creatinine Ratio 08/28/2023 08/28/2022, 06/0 05/2022 Depression Screening, Annual for Pts 12 and Over 09/13/2023 09/13/2022 CKD HGB USE SMARTSET 29003 12/03/202312/03, 12/03/2022, 08/28/2022, Additional history exists CKD PHOS USE SMARTSET 40773 01/11/2024 01/10/2023, 1 Lipid Panel 01/13/2024 01/12/2019, 06/24/2018 DTaP,Tdap,and Td Vaccines (2 - Td or Tdap) 03/17/2024 03/17/2014 Pap Smear 09/13/2025 09/13/2022, 08/06, 03/28/2016, Additional history exists Diabetes Screening 12/03/2025 12/03/2022, 1 10/28/2021, 06/21/2022, Additional history exists Cervical Cancer Screening 09/13/2027 HPV/Co-Test 09/13/2027 09/13/2022 Hepatitis C Screening Completed 11/11/2013 GARDASIL-HPV IMMUNIZATION SERIES Aged Out No longer eligible based on patient's age to complete this topic MENINGOCOCCAL (MENACTRA/MENVEO) Aged Out No longer eligible based on patient's age to complete this topic documented as of this encounter Medical Devices Not on filedocumented as of this encounter Visit Diagnoses Diagnosis Encounter for long-term (current) use of medications- Primary Encounter for long-term (current) use of other medications Class 2 obesity due to excess calories without serious comorbidity in adult, unspecified BMI Snoring Other dyspnea and respiratory abnormality Elevated liver enzymes Nonspecific elevation of levels of transaminase or lactic acid dehydrogenase (LDH) Obesity, Class I, BMI 30.0-34.9 (see actual BMI) Obesity, unspecified documented in this encounter Advance Directives Latest [...] and were consensually agreed upon. Care Teams Special Needs Babysitter Relationship Specialty Start Date End Date Brent Horowitz MD [address] [facility] [place] [id number] PCP - General Family Medicine 03/13/22 documented as of this encounter
--- OUTSIDE RECORDS SUMMARY | 2023-08-21 22:26 | External Medical Summary | Summary of Care ---
Author Name Unknown Organization [facility] Address [address] [facility] [place] [address] Phone [phone] Care Team Providers Care Strainer Tender Name Role Phone Yancy Horowitz MD Primary Care Provid er Encounter Details Date Type Department Care Team Description 04/17/2023 Office Visit Sleep Lab, [address] [address] Raisa Perez, DO [address] [place] [address] GUZMAN (obstructive sleep apnea)*; PLMD (periodic limb movement disorder); Nocturnal hypoxemia Allergies Active Allergy Reactions Severity Noted Date Comments Penicillin G 05/14/2012 Hives remote documented as of this encounter (statuses as of 05/16/2023) Medications Medication Sig Dispensed Refills Start Date [...] once daily 90 Tablet 0 04/15/2023 Active documented as of this encounter (statuses as of 05/16/2023) Active Problems Problem Noted Date Greater trochanteric [...] as of this encounter (statuses as of 05/16/2023) Resolved Problems Problem Noted Date Resolved Date [...] as of this encounter (statuses as of 05/16/2023) Immunizations Name Administration Dates Next Due COVID-19 mRNA, LNP-s, No Pre serve, 2-Dose Series ([employer]) 08/10/2021,01/26/2021,01/05/2021 Pneumococcal Conjugate Vacc, 13 Valent (Prevnar) [...] as of this encounter Progress Notes * Raisa Perez DO - 05/16/2023 3:41 PM EDT Billing encounter for polysomnogram documented in this encounter Plan of Treatment Upcoming Encounters Date Type Specialty Care Team Description 05/20/2023 Office Visit Sleep Disorders Raisa Perez DO [address] [place] [address] 06/06/2023 Imaging Radiology 07/11/2023 Office Visit Family Medicine [facility] [address] [facility] [address] 10/10/2023 Office Visit Nephrology Jax Baird MD 200 [place] [address] 11/20/2023 Telemedicine Neurology Rita Coy PA-C 200 [facility] [place] [id number] 01/02/2024 Office Visit Rheumatology Shashi Dawkins MD [address] [facility] [place] [id number] Health Maintenance Due Date Last Done Comments [...] Over 09/13/2023 09/13/2022 CKD HGB USE SMARTSET 80841 12/03/202312/03, 12/03/2022, 08/28/2022, Additional history exists CKD PHOS USE SMARTSET 39660 01/11/2024 01/10/2023, 1 Lipid Panel 01/13/2024 01/12/2019, [...] as of this encounter Visit Diagnoses Diagnosis GUZMAN (obstructive sleep apnea)- Primary Obstructive sleep apnea (adult) (pediatric) PLMD (periodic limb movement disorder) Periodic limb movement disorder Nocturnal hypoxemia Hypoxemia documented in this encounter Advance Directives Latest [...] and were consensually agreed upon. Care Teams Strainer Tender Relationship Specialty Start Date End Date Yancy Horowitz MD [address] [place] [address] PCP - General Family Medicine 03/13/22 documented as of this encounter
--- OUTSIDE RECORDS SUMMARY | 2023-08-21 22:26 | External Medical Summary | Summary of Care ---
Author Name Unknown Organization [facility] Address [address] [facility] [place] [address] Phone [phone] Care Team Providers Care Senior Product Engineer Name Role Phone Yancy Horowitz MD Primary Care Provid er Reason for Visit * Reason Comments eRx-Medication Refill Encounter Details Date Type Department Care Team Description 04/14/2023 Refill Neurology [facility] Tamika [place] [address] [place] [address] Rachel Hernandez PA-C [address] [place] [address] Intractable chronic migraine without aura and without status migrainosus Allergies Active Allergy Reactions Severity Noted Date Comments Penicillin G 05/14/2012 Hives remote documented as of this encounter (statuses as of 04/15/2023) Medications Medication Sig Dispensed Refills Start Date [...] at bedtime. 90 Tablet 1 09/09/2022 Active Gabapentin 300 MG Oral Capsule (Neurontin) Take 1 Capsule by mouth at bedtime. 30 Capsule 3 01/10/2023 Active Zolpidem Tartrate 5 MG Oral Tablet [...] the morning. 180 Tablet 3 02/25/2023 Active Wegovy 1.7 MG/0.75ML Subcutaneous Solution Auto-injector (Semaglutide-Weigh t Management) Inject 1.7 mg under the skin once a week. 3 mL 1 04/07/2023 Active Verapamil HCl ER 240 MG Oral Tablet Extended Release (Isoptin SR)Indications:Int ractable chronic migraine without aura and without status migrainosus Take 1 tablet by mouth once daily 90 Tablet 0 04/15/2023 Active Verapamil HCl ER 240 MG Oral Tablet Extended Release (Isoptin SR)Indications:Int ractable chronic migraine without aura and without status migrainosus Take 1 tablet by mouth once daily 90 Tablet 2 05/01/2022 3 Discontinued documented as of this encounter (statuses as of 04/15/2023) Active Problems Problem Noted Date Greater trochanteric [...] as of this encounter (statuses as of 04/15/2023) Resolved Problems Problem Noted Date Resolved Date [...] as of this encounter (statuses as of 04/15/2023) Immunizations Name Administration Dates Next Due COVID-19 mRNA, LNP-s, No Pre serve, 2-Dose Series ([employer]) 08/10/2021,01/26/2021,01/05/2021 Pneumococcal Conjugate Vacc, 13 Valent (Prevnar) 06/24/2018 Pneumococcal Polysaccharide PPV23 (Pneumovax) 10/26/2015 Seasonal Influenza, Quadriva lent, No Preserve, 6 Mons & Above, IM 06/21/2022,07/20/2021,09/08/2020,08/20,06/24/2018,07/11/2017 Seasonal Influenza, Deenaiva keith, No Preserve, IM 08/23/2016,10/26/2015 TDAP (age 10 [...] Telephone Encounter - Rachel Hernandez PA-C - 04/15/2023 9:37 AM EDT Signed Prescriptions: Disp Refills Verapamil HCl ER 240 MG Oral Tablet Extend*90 Tab*0 Sig: Take 1 tablet by mouth once daily Authorizing Provider: RACHEL HERNANDEZ * Telephone Encounter - Simran Mullen [facility] - 04/15/2023 9:30 AM EDT Pending Prescriptions: Disp Refills Verapamil HCl ER 240 MG Oral Tablet Extend*90 Tab*0 Sig: Take 1 tablet by mouth once daily * Telephone Encounter - Terrell galeana [facility] - 04/14/2023 9:59 PM EDTPending Prescriptions: Disp Refills Verapamil HCl ER 240 MG Oral Tablet Extend*90 Tab*0 Sig: Take 1 tablet by mouth once daily * Telephone Encounter - [facility] - 04/14/2023 9:58 PM EDT Did you pend patient's preferred pharmacy and medication before forwarding?yes Pharmacy[facility] [facility] Pending Prescriptions: Disp Refills Verapamil HCl ER 240 MG Oral Tablet Exten*90 Tab*0 Sig: Take 1 tablet by mouth once daily Last Visit: 01/08/2019 (in office), 08/28/2022 (telemedicine) Next Visit: 04/25/2023 If no future appointments scheduled, and last appointment is greater than a year ago, please schedule patient for a follow-up appointment Last date the medication was ordered: 05/01/2022 Is this request for a controlled substance?No Urine Drug Screen:No results found for this or any previous visit. Patient Phone Numbers Labs: Lab Results Component Value Date/Time CREAT 1.1 (H) 12/03/2022 04:05 PM CREAT 1.0 08/03/2020 09:50 AM POTASSIUM 4.0 12/03/2022 04:05 PM POTASSIUM 4.0 08/03/2020 09:50 AM TSH 3.17 12/03/2019 10:17 AM LDLCALC 151 (H) 01/12/2019 08:26 AM ALT 19 12/03/2022 04:05 PM ALT 19 08/03/2020 09:50 AM documented in this encounter Plan of Treatment Upcoming Encounters Date Type Specialty Care Team Description 04/25/2023 Telemedicine Neurology Rachel Hernandez PA-C 200 [place] [address] 07/11/2023 Office Visit Family Medicine Yancy Horowitz MD [address] [place] [address] 10/10/2023 Office Visit Nephrology Jax Baird MD 200 [facility] [place], [place] [address] 01/02/2024 Office Visit Rheumatology Shashi Dawkins MD [address] [facility] [place], [place] [address] Health Maintenance Due Date Last Done Comments Hepatitis B (1 of 3 - 3-dose series) 1980 Pneumococcal Vaccine: Pediatrics (0 to 5 Years) and At-Risk Patients (6 to 64 Years) (3 - PPSV23 if available, else PCV20) 10/26/2020 06/24/2018, 10/26/2015 COVID-19 Vaccine (4 - Booster for Pfizer series) 10/05/2021 08/10/2021, 01/26/2021, 01/05/2021 Mammogram 05/30/2023 05/30/2022, 05/06, 05/17/2021, Additional history exists GFR 06/02/2023 12/03/2022, 08/07, 06/21/2022, Additional history exists Influenza Vaccine (FLU shot) (#1) 2023 06/21/2022, 07/20/2021, 09/08/2020, Additional history exists Albumin/Creatinine Ratio 08/28/2023 08/28/2022, 06/0 05/2022 Depression Screening, Annual for Pts 12 and Over 09/13/2023 09/13/2022 CKD HGB USE SMARTSET 14438 12/03/202312/03, 12/03/2022, 08/28/2022, Additional history exists CKD PHOS USE SMARTSET 19093 01/11/2024 01/10/2023, 1 Lipid Panel 01/13/2024 01/12/2019, 06/24/2018 DTaP,Tdap,and Td Vaccines (2 - Td or Tdap) 03/17/2024 03/17/2014 Diabetes Screening 12/03/2025 12/03/2022, 1 10/28/2021, 06/21/2022, Additional history exists Pap Smear 09/13/2027 09/13/2022, 08/06, 03/28/2016, Additional history exists Hepatitis C Screening Completed 11/11/2013 GARDASIL-HPV IMMUNIZATION [...] and were consensually agreed upon. Care Teams Senior Product Engineer Relationship Specialty Start Date End Date Yancy Horowitz MD [address] [place] [address] PCP - General Family Medicine 03/13/22 documented as of this encounter
--- OUTSIDE RECORDS SUMMARY | 2023-08-21 22:26 | External Medical Summary | Summary of Care ---
Author Name Unknown Organization [facility] Address [address] [facility] [place] [address] Phone [phone] Care Team Providers Care Aquatic Ecologist Name Role Phone Yancy Horowitz MD Primary Care Provid er Reason for Visit * Reason Onset Date Comments Medication Refill 03/10/2023 Encounter Details Date Type Department Care Team Description 03/10/2023 Refill [facility] [address] [place] [address] Yancy Horowitz MD [address] [place] [address] Class 2 obesity due to excess calories without serious comorbidity in adult, unspecified BMI Allergies Active Allergy Reactions Severity Noted Date Comments Penicillin G 05/14/2012 Hives remote documented as of this encounter (statuses as of 03/11/2023) Medications Medication Sig Dispensed Refills Start Date End Date Status Verapamil HCl ER 240 MG Oral Tablet Extended Release (Isoptin SR)Indications:Intrac table chronic migraine without aura and without status migrainosus Take 1 tablet by mouth once daily 90 Tablet 2 05/01/2022 Active Magnesium Oxide 400 MG Oral Capsule Take [...] morning. 180 Tablet 3 02/25/2023 Active Wegovy 1 MG/0.5ML Subcutaneous Solution Auto-injector (Semaglutide-Weight Management)Indication s:Class 2 obesity due to excess calories without serious comorbidity in adult, unspecified BMI Inject 1 mg under the skin once a week. 2 mL 1 03/10/2023 Active documented as of this encounter (statuses as of 03/11/2023) Active Problems Problem Noted Date Greater trochanteric [...] as of this encounter (statuses as of 03/11/2023) Resolved Problems Problem Noted Date Resolved Date [...] as of this encounter (statuses as of 03/11/2023) Immunizations Name Administration Dates Next Due COVID-19 [...] encounter Miscellaneous Notes * Telephone Encounter - Yesenia Blackmon [facility] - 03/11/2023 2:10 PM EDTRefused Prescriptions: Disp Refills Wegovy 0.5 MG/0.5ML Subcutaneous Solution *2 mL 1 Sig: Inject 0.5 mg under the skin once a week.Refused By: YESENIA BLACKMON for Refusal: Duplicate Request--- documented in this encounter Plan of Treatment Upcoming Encounters Date Type Specialty Care Team Description 03/27/2023 Telemedicine Neurology Rita Coy PA-C [address] [place] [address] 07/11/2023 Office Visit Family Medicine Yancy Horowitz MD [address] [place] [address] 10/10/2023 Office Visit Nephrology Jax Baird MD [address] [place], [place] [address] 01/02/2024 Office Visit Rheumatology Shashi Dawkins MD [address] [facility] [place] [address] Health Maintenance Due Date Last Done Comments [...] 06/02/2023 12/03/2022, 08/07, 06/21/2022, Additional history exists Albumin/Creatinine Ratio 08/28/2023 08/28/2022, 06/0 05/2022 Depression Screening, Annual for Pts 12 and Over 09/13/2023 09/13/2022 CKD HGB USE SMARTSET 31473 12/03/202312/03, 12/03/2022, 08/28/2022, Additional history exists CKD PHOS USE SMARTSET 00382 01/11/2024 01/10/2023, 1 Lipid Panel 01/13/2024 01/12/2019, 06/24/2018 DTaP,Tdap,and Td Vaccines (2 - Td or Tdap) 03/17/2024 03/17/2014 Diabetes Screening 12/03/2025 12/03/2022, 1 10/28/2021, 06/21/2022, Additional history exists Pap Smear 09/13/2027 09/13/2022, 08/06, 03/28/2016, Additional history exists Hepatitis C Screening Completed 11/11/2013 Influenza Vaccine (FLU shot) Completed , 07/20/2021, 09/08/2020, Additional history exists GARDASIL-HPV IMMUNIZATION SERIES Aged Out No longer eligible based on patient's age to complete this topic MENINGOCOCCAL (MENACTRA/MENVEO) Aged Out No longer eligible based on patient's age to complete this topic documented as of this encounter Medical Devices Not on filedocumented as of this encounter Visit Diagnoses Diagnosis Class 2 obesity due to excess calories without serious comorbidity in adult, unspecified BMI documented in this encounter Advance Directives Latest [...] and were consensually agreed upon. Care Teams Aquatic Ecologist Relationship Specialty Start Date End Date Yancy Horowitz MD [address] [facility] [place], [place] [phone] PCP - General Family Medicine 03/13/22 documented as of this encounter
--- OUTSIDE RECORDS SUMMARY | 2023-08-21 22:26 | External Medical Summary | Summary of Care ---
Author Name Unknown Organization [facility] Address [address] [facility] [place] [address] Phone [phone] Care Team Providers Care Time Cycle Operator Name Role Phone Brent Horowitz MD Primary Care Provid er Reason for Visit * Reason Onset Date Comments Medication Refill 04/06/2023 Encounter Details Date Type Department Care Team Description 04/06/2023 Refill [facility] [address] [place] [address] Brent Horowitz MD [address] [place] [address] Class 2 obesity due to excess calories without serious comorbidity in adult, unspecified BMI Allergies Active Allergy Reactions Severity Noted Date Comments Penicillin G 05/14/2012 Hives remote documented as of this encounter (statuses as of 04/07/2023) Medications Medication Sig Dispensed Refills Start Date [...] a week. 3 mL 1 04/07/2023 Active Wegovy 1 MG/0.5ML Subcutaneous Solution Auto-injector (Semaglutide-Weigh t Management)Indicat ions:Class 2 obesity due to excess calories without serious comorbidity in adult, unspecified BMI Inject 1 mg under the skin once a week. 2 mL 1 03/10/2023 3 Discontinued documented as of this encounter (statuses as of 04/07/2023) Active Problems Problem Noted Date Greater trochanteric [...] as of this encounter (statuses as of 04/07/2023) Resolved Problems Problem Noted Date Resolved Date [...] as of this encounter (statuses as of 04/07/2023) Immunizations Name Administration Dates Next Due COVID-19 mRNA, LNP-s, No Pre serve, 2-Dose Series ([employer]) 08/10/2021,01/26/2021,01/05/2021 Pneumococcal Conjugate Vacc, 13 Valent (Prevnar) 06/24/2018 Pneumococcal Polysaccharide PPV23 (Pneumovax) 10/26/2015 Seasonal Influenza, Quadriva lent, No Preserve, 6 Mons & Above, IM 06/21/2022,07/20/2021,09/08/2020,08/20,06/24/2018,07/11/2017 Seasonal Influenza, Yun parker, No Preserve, IM 08/23/2016,10/26/2015 TDAP (age 10 [...] Telephone Encounter - Brent Horowitz MD - 04/07/2023 5:29 PM EDT Signed Prescriptions: Disp Refills Wegovy 1.7 MG/0.75ML Subcutaneous Solution*3 mL 1 Sig: Inject 1.7 mg under the skin once a week. Authorizing Provider: BRENT HOROWITZ * Telephone Encounter - Nicolas Pollock [facility] - 04/07/2023 12:19 PM EDTPending Prescriptions: Disp Refills Wegovy 1.7 MG/0.75ML Subcutaneous Solution*3 mL 1 Sig: Inject 1.7 mg under the skin once a week. * Telephone Encounter - Nicolas Pollock RPh - 04/07/2023 12:14 PM EDT Please see message from patient from 04/06/23 (both refill request and patient message) : ": I am Ready to move up to the next dose" Per chart review patient currently prescribed Wegovy 1mg weekly. Dose increase to 1.7mg weekly pended as requested by patient. Please review and approve if appropriate for patient to increase Wegovy dose at this time. Thanks, Nicolas Pollock Rph, Pharm D. Clinical Pharmacist Centralized Clinical Pharmacy Services (Formerly Telepharmacy)/[facility] [phone] 04/07/2023,12:18 PM documented in this encounter Plan of Treatment Upcoming Encounters Date Type Specialty Care Team Description 04/25/2023 Telemedicine Neurology Rita Coy PA-C [address] [place] [address] 07/11/2023 Office Visit Family Medicine Brent Horowitz MD [address] [place] [address] 10/10/2023 Office Visit Nephrology Jax Baird MD [address] [place] [address] 01/02/2024 Office Visit Rheumatology Shashi Dawkins MD [address] [facility] [place] [address] Health Maintenance Due Date Last Done Comments [...] Additional history exists Albumin/Creatinine Ratio 08/28/2023 08/28/2022, 05/2022 Depression Screening, Annual for Pts 12 and Over 09/13/2023 09/13/2022 CKD HGB USE SMARTSET 31463 12/03/202312/03, 12/03/2022, 08/28/2022, Additional history exists CKD PHOS USE SMARTSET 37143 01/11/2024 01/10/2023, 1 Lipid Panel 01/13/2024 01/12/2019, [...] and were consensually agreed upon. Care Teams Time Cycle Operator Relationship Specialty Start Date End Date Brent Horowitz MD [address] [place] [id number] PCP - General Family Medicine 03/13/22 documented as of this encounter
--- OUTSIDE RECORDS SUMMARY | 2023-08-21 22:26 | External Medical Summary | Summary of Care ---
Author Name Unknown Organization [facility] Address [address] [facility] [place] [address] Phone [phone] Care Team Providers Care Admitted Attorneys Name Role Phone Yancy Horowitz MD Primary Care Provid er Encounter Details Date Type Department Care Team Description 05/13/2023 Telephone [facility] [address] [place] [address] Raisa Perez DO [address] [place] [address] Allergies Active Allergy Reactions Severity Noted Date Comments Penicillin G 05/14/2012 Hives remote documented as of this encounter (statuses as of 05/15/2023) Medications Medication Sig Dispensed Refills Start Date [...] 2.4 MG/0.75ML Subcutaneous Solution Auto-injector (Semaglutide-Weight Management)Indicatio ns:Encounter for long-term (current) use of medications,Class 2 obesity due to excess calories without serious comorbidity in adult, unspecified BMI,Snoring,Elevated liver enzymes,Obesity, Class I, BMI 30.0-34.9 (see actual BMI) Inject 2.4 mg under the skin once a week. 3 mL 5 05/02/2023 06/01/2023 Active documented as of this encounter (statuses as of 05/15/2023) Active Problems Problem Noted Date Greater trochanteric [...] as of this encounter (statuses as of 05/15/2023) Resolved Problems Problem Noted Date Resolved Date [...] as of this encounter (statuses as of 05/15/2023) Immunizations Name Administration Dates Next Due COVID-19 [...] encounter Miscellaneous Notes * Telephone Encounter - Ruchi Manuel - 05/15/2023 3:25 PM EDT Pt is scheduled for Sep.09. Place on wait list * Telephone Encounter - Raisa Perez DO - 05/13/2023 4:57 PM EDT Please make pt a psg results appt documented in this encounter Plan of Treatment Upcoming Encounters Date Type Specialty Care Team Description 06/06/2023 Imaging Radiology 07/11/2023 Office Visit Family Medicine Yancy Horowitz MD [address] [place] [address] 09/09/2023 Office Visit Sleep Disorders Raisa Perez DO [address] [place] [address] 10/10/2023 Office Visit Nephrology Jax Baird MD [address] [place] [address] 11/20/2023 Telemedicine Neurology Rita Coy PA-C [address] [place] [address] [address] 01/02/2024 Office Visit Rheumatology Shashi Dawkins MD [facility] [place] [address] Health Maintenance Due Date Last Done Comments [...] Over 09/13/2023 09/13/2022 CKD HGB USE SMARTSET 43803 12/03/202312/03, 12/03/2022, 08/28/2022, Additional history exists CKD PHOS USE SMARTSET 74003 01/11/2024 01/10/2023, 1 Lipid Panel 01/13/2024 01/12/2019, [...] and were consensually agreed upon. Care Teams Admitted Attorneys Relationship Specialty Start Date End Date Yancy Horowitz MD [address] [facility] [place], [place] [phone] PCP - General Family Medicine 03/13/22 documented as of this encounter
--- OUTSIDE RECORDS SUMMARY | 2023-08-21 22:26 | External Medical Summary | Summary of Care ---
Author Name Unknown Organization [facility] Address [address] [facility] [place] [address] Phone [phone] Care Team Providers Care School Administrator Name Role Phone Yancy Horowitz MD Primary Care Provid er Reason for Visit * Reason Comments Follow Up Encounter Details Date Type Department Care Team Description 05/20/2023 Office Visit Sleep Disorders [facility] [address] [place] [address] Raisa Perez DO [address] [place] [address] GUZMAN (obstructive sleep apnea)* Allergies Active Allergy Reactions Severity Noted Date Comments Penicillin G 05/14/2012 Hives remote documented as of this encounter (statuses as of 05/20/2023) Medications Medication Sig Dispensed Refills Start Date [...] once daily 90 Tablet 0 04/15/2023 Active Wegovy 2.4 MG/0.75ML Subcutaneous Solution Auto-injector (Semaglutide-Weig ht Management)Indica tions:Encounter for long-term (current) use of medications,Class 2 obesity due to excess calories without serious comorbidity in adult, unspecified BMI,Snoring,[place] juan liver enzymes,Obesity, Class I, BMI 30.0-34.9 (see actual BMI) Inject 2.4 mg under the skin once a week. 3 mL 5 05/02/2023 06/01/20 23 Active Gabapentin 300 MG Oral Capsule (Neurontin) Take 2 Capsules by mouth at bedtime. 60 Capsule 3 05/20/2023 Active Zolpidem Tartrate 5 MG Oral Tablet (Ambien) Take 1 Tablet by mouth at bedtime. 30 to 60 minutes prior to sleep. 1 Tablet 0 01/10/2023 05/20/20 23 Discontinued(Pat ient preference/disco ntinuation) Gabapentin 300 MG Oral Capsule (Neurontin) Take 1 capsule by mouth at bedtime 30 Capsule 3 05/01/2023 05/20/20 23 Discontinued documented as of this encounter (statuses as of 05/20/2023) Active Problems Problem Noted Date Greater trochanteric [...] as of this encounter (statuses as of 05/20/2023) Resolved Problems Problem Noted Date Resolved Date [...] as of this encounter (statuses as of 05/20/2023) Immunizations Name Administration Dates Next Due COVID-19 [...] Sign Reading Time Taken Comments Blood Pressure 118/70 05/20/2023 1:17 PM EDT Pulse 63 05/20/2023 1:17 PM EDT Temperature 36.7 C (98.1 F) 05/20/2023 1:17 PM ED T Respiratory Rate 18 05/20/2023 1:17 PM EDT Oxygen Saturation 98% 05/20/2023 1:17 PM EDT Inhaled Oxygen Concentration - - Weight 90.4 kg (199 lb 4.7 oz) 05/20/2023 1:17 P M EDT Height 166.9 cm (5' 5.71") 05/20/2023 1:17 PM ED T Body Mass Index 32.45 05/20/2023 1:17 PM EDT documented in this encounter Patient Instructions * Patient Instructions* Raisa Perez DO - 05/20/2023 1:53 PM EDT Once you get your PAP machine, please call [facility] to make a follow-up with Sleep Medicine Clinicin 31-90 days of starting your CPAP. documented in this encounter Progress Notes * Raisa Perez DO - 05/20/2023 1:40 PM EDT Sleep Medicine Follow-Up Clinic Note HISTORY: Ms. Saqib Belle is a 42 year old female in clinic today for results of the recent sleep study. Ms. Belle recalls sleeping much better during this PSG with the Ambien. In the last several months, she lost 25 lbs and plans to continue with her weight loss. She had to stop the FS QOD because ofconstipation. With the gabapentin 300mg qhs, she still has RLS sxs in the evening. Diagostic Polysomnogram 04/17/23: BMI 36.96 REM sleep 19% of TST REM atonia Nl AHI 10 (CMS/medicare criteria used) RDI 10.2 Min O2 86 % <89% O2 6.6 min(s) PLMI 52.2 Diagnostic Polysomnogram 12/28/22: BMI 34.7 SE 85% REM Sleep 0% TST AHI 2.6 (CMS/medicare criteria used) RDI 4 Min O2 88 % <89% O2 1.5 min(s) PLMI 23.9 Travel Screening Question 05/20/2023 1:21 PM EDT - Filed by Patient Do you have any of the following new or worsening symptoms? Fatigue Have you recently been in contact with someone who was sick? No / Unsure Arrington Sleepiness Scale Question 05/20/2023 1:22 PM EDT - Filed by Patient What is the chance you will doze off in the following situation? Sitting and reading Slight chance of dozing Watching TV No chance of dozing Sitting inactive in a public place, such as a theater or meeting Moderate chance of dozing As a passenger in a car for an hour without a break High chance of dozing Lying down to rest in the afternoon when circumstances permit Moderate chance of dozing When sitting and talking to someone No chance of dozing When sitting quietly after lunch without alcohol Slight chance of dozing In a car, while stopped for a few minutes in traffic Slight chance of dozing Score (range: 0 - 24) 10 Restless Leg Syndrome Rating Scale Question 05/20/2023 1:25 PM EDT - Filed by Patient Please complete the following questions. In the past week... Overall, how would you rate the RLS discomfort in your legs or arms? None Overall, how would you rate the need to move around because of your RLS symptoms? Moderate How severe was your sleep disturbance due to your RLS symptoms? Moderate How severe was your tiredness or sleepiness during the day due to your RLS symptoms? Moderate How severe was your RLS as a whole? Mild Overall, how severe was the impact of your RLS symptoms on your ability to carry out your daily affairs, for example, carrying out a satisfactory family, home, social, school, or work? None How severe was your mood disturbance due to your RLS symptoms, for example, angry, depressed, sad, anxious, or irritable? None In the past week, Overall, how much relief of your RLS arm or leg discomfort did you get from moving around? Either complete or almost complete relief How often did you get RLS symptoms? Very often (6 to 7 days in 1 week) When you had RLS symptoms, how severe were they on average? Severe (3 to 8 hours per 24 hours) Score (range: 1 - 40) 15 (Moderate) Past Medical History: Diagnosis Date Depression Hx of pre-eclampsia in prior , currently 11/11/2013 Hx of delivery, currently 11/11/2013 Lupus (HCC) 2005 Plaquenil Past Surgical History: Procedure Laterality Date ANESTH, CS DELIVERY 2005 & 1994 x 2 DELIVERY ONLY W/ 05/26/2014 DELIVERY AND CARE performed by Gerhard Yi MD at [facility] EXCISE BENIGN LESION, TRUNK, ARM, LEG, 2.1 - 3.0 CM 05/29/2012 Mass L upper inner thigh HYSTEROSCOPY;ENDOMETRIAL ABLAT 06/06/2016 HYSTEROSCOPY ENDOMETRIAL ABLATION performed by Feliciano Juarez DO at OR [facility] LIGATE/CUT OVIDUCT(S) AT SURGERY 05/26/2014 LIGATION FALLOPIAN TUBE AT TIME OF DELIVERY ADD ON performed by Gerhard Yi MD at [facility] NASAL ENDOSCOPY,TOTAL ETHMOIDECTOMY Bilateral 10/18/2016 NASAL SINUS ENDOSCOPY WITH ETHMOIDECTOMY TOTAL performed by Mikhail Barlow II, MD at OR [facility] NASAL ENDOSCOPY/EXPLOR MAXIL SINUS 10/18/2016 NASAL SINUS ENDOSCOPY MAXILLARY ANTROSTOMY performed by Mikhail Barlow II, MD at [facility] REMOVAL OF TURBINATE BONES Bilateral 10/18/2016 SUBMUCOUS RESECTION INFERIOR TURBINATE performed by Mikhail Barlow II, MD at [facility] REPAIR OF NASAL SEPTUM Bilateral 10/18/2016 SEPTOPLASTY performed by Mikhail Barlow II, MD at [facility] REPAIR/REVISE WRIST JOINT(S) Right 12/20/2020 ARTHROPLASTY INTERPOSITION CARPAL JOINTS performed by Praneeth Canales MD at [facility] STEREOTACTIC CRANIAL EXTRADURAL NAVIGATION Bilateral 10/18/2016 STEREOTACTIC CRANIAL EXTRADURAL NAVIGATION performed by Mikhail Barlow II, MD at [facility] Current Outpatient Medications Medication Sig Dispense Refill [...] mouth in the morning. 180 Tablet 3 Verapamil HCl ER 240 MG Oral Tablet Extended Release (Isoptin SR) Take 1 tablet by mouth once daily90 Tablet 0 Gabapentin 300 MG Oral Capsule (Neurontin) Take 1 capsule by mouth at bedtime 30 Capsule 3 Wegovy 2.4 MG/0.75ML Subcutaneous Solution Auto-injector (Semaglutide-Weight Management) Inject 2.4mg under the skin once a week. 3 mL 5 No current facility-administered medications for this visit. Review of patient's allergies indicates: Allergen Reactions Penicillin G Hives remote PHYSICAL EXAM: BP 118/70 | Pulse 63 | Temp 36.7 C (98.1 F) | Resp 18 | Ht 1.669 m (5' 5.71") | Wt 90.4 kg (199lb 4.7 oz) | SpO2 98% | BMI 32.45 kg/m | BSA 2.05 m Constitutional: Alert, oriented in no acute distress Skin: no markings on face Chest: Normal respiratory effort at rest Neuro: Normal speech and comprehension Psych: Appropriate mood and affect ASSESSMENT/PLAN: Obstructive Sleep Apnea Nocturnal Hypoxemia Restless Legs Syndrome Dream Enactment w/ normal REM at[place] We went over the diagnosis of obstructive sleep apnea with the patient, as well as the possible treatment options. Patient opted to try AutoPAP [id number] The patient should continue a weight reduction program. Even a mild to moderate weight loss should result in significant improvement in the patients nocturnal respiratory events. Exercise should be undertaken daily, with respect given to any orthopedic limitations. Physical therapy or physical medicine consultation may be warranted. Strenuous exercise, which activates the sympathetic nervous system (adrenaline system) not only helps with weight loss, glucose, and mood, but also improves sleep quality, and upper respiratory muscle tone during sleep. Obtain overnight oximetry after PAP therapy tolerated and Obstructive Sleep Apnea adequately treated Avoid driving, operating heavy machinery or engaging in any activity that requires full alertness if feeling sleepy, drowsy or otherwise impaired. Increase gabapentin from 300mg to 600mg qhs Monitor for improvement in dream enactment with adequate treatment of SRBD Follow-up with Sleep Medicine in 31-90d of starting PAP. Raisa Perez DO I spent a total of 30-39 minutes (exact time 35 mins) on the date of service in preparation, delivery, and documentation of the care provided to Saqib Belle excluding any time spent in the performance of separately billed services. documented in this encounter Nursing Notes * Veronica Banks, AKHIL - 05/20/2023 1:25 PM EDT Interm History/Respiratory Symptoms Cough: No Hemoptysis: No Sinus Symptoms: Sinus drainage Hospitalizations: No ED Trips: No Triggers: Walking steps Nocturnal: No CPAP/BiPAP/O2: No Travel Screening Question 05/20/2023 1:21 PM EDT - Filed by Patient Do you have any of the following new or worsening symptoms? Fatigue Have you recently been in contact with someone who was sick? No / Unsure [place] Sleepiness Scale Question 05/20/2023 1:22 PM EDT - Filed by Patient What is the chance you will doze off in the following situation? Sitting and reading Slight chance of dozing Watching TV No chance of dozing Sitting inactive in a public place, such as a theater or meeting Moderate chance of dozing As a passenger in a car for an hour without a break High chance of dozing Lying down to rest in the afternoon when circumstances permit Moderate chance of dozing When sitting and talking to someone No chance of dozing When sitting quietly after lunch without alcohol Slight chance of dozing In a car, while stopped for a few minutes in traffic Slight chance of dozing Score (range: 0 - 24) 10 Restless Leg Syndrome Rating Scale Question 05/20/2023 1:25 PM EDT - Filed by Patient Please complete the following questions. In the past week... Overall, how would you rate the RLS discomfort in your legs or arms? None Overall, how would you rate the need to move around because of your RLS symptoms? Moderate How severe was your sleep disturbance due to your RLS symptoms? Moderate How severe was your tiredness or sleepiness during the day due to your RLS symptoms? Moderate How severe was your RLS as a whole? Mild Overall, how severe was the impact of your RLS symptoms on your ability to carry out your daily affairs, for example, carrying out a satisfactory family, home, social, school, or work? None How severe was your mood disturbance due to your RLS symptoms, for example, angry, depressed, sad, anxious, or irritable? None In the past week, Overall, how much relief of your RLS arm or leg discomfort did you get from moving around? Either complete or almost complete relief How often did you get RLS symptoms? Very often (6 to 7 days in 1 week) When you had RLS symptoms, how severe were they on average? Severe (3 to 8 hours per 24 hours) Score (range: 1 - 40) 15 (Moderate) documented in this encounter Plan of Treatment Upcoming Encounters Date Type Specialty Care Team Description 06/06/2023 Imaging Radiology 07/11/2023 Office Visit Family Medicine Yancy Horowitz MD [address] [place] [address] 10/10/2023 Office Visit Nephrology Jax Baird MD [address] [facility] [place] [address] 11/20/2023 Telemedicine Neurology Rita Coy PA-C [address] [facility] [place] [address] 01/02/2024 Office Visit Rheumatology Shashi Dawkins MD [address] [facility] [place], [place] [address] Scheduled Orders Name Type Priority Associated Diagnoses Orde r Schedule POSITIVE AIRWAY PRESSURE (CPAP) Procedures Routine GUZMAN (obstructive sleep apnea) Ordered: 05/20/2023 Health Maintenance Due Date Last Done Comments [...] Over 09/13/2023 09/13/2022 CKD HGB USE SMARTSET 16298 12/03/202312/03, 12/03/2022, 08/28/2022, Additional history exists CKD PHOS USE SMARTSET 73685 01/11/2024 01/10/2023, 1 Lipid Panel 01/13/2024 01/12/2019, [...] apnea)- Primary Obstructive sleep apnea (adult) (pediatric) documented in this encounter Advance Directives Latest [...] and were consensually agreed upon. Care Teams School Administrator Relationship Specialty Start Date End Date Yancy Horowitz MD [address] [place] [address] PCP - General Family Medicine 03/13/22 documented as of this encounter
--- OUTSIDE RECORDS SUMMARY | 2023-08-21 22:26 | External Medical Summary | Summary of Care ---
Author Name Unknown Organization [facility] Address [address] [facility] [place] [address] Phone [phone] Care Team Providers Care Dressage Instructor Name Role Phone Yancy Horowitz MD Primary Care Provid er Reason for Visit * Reason Comments Migraine Headache Encounter Details Date Type Department Care Team Description 05/15/2023 Telemedicine Neurology [facility] [place] [address] [facility] [place] [address] Rita Coy PA-C [address] [facility] [place] [address] Intractable chronic migraine without aura and without status migrainosus*; Tobacco use disorder Allergies Active Allergy Reactions Severity Noted Date Comments Penicillin G 05/14/2012 Hives remote documented as of this encounter (statuses as of 05/15/2023) Medications Medication Sig Dispensed Refills Start Date End Date Status QUEtiapine Fumarate 100 MG Oral Tablet (SEROquel)Indicati [...] week. 3 mL 5 05/02/2023 06/01/2023 Active Magnesium Oxide 400 MG Oral Capsule Take 1 Capsule (400 mg) by mouth in the morning. 30 Capsule 2 08/28/2022 05/15/2023 Discontinued (Patient preference/d iscontinuati on) Riboflavin 100 MG Oral Tablet (Riboflavin) Take 4 Tablets (400 mg) by mouth daily with breakfast. 120 Tablet 5 08/28/2022 05/15/2023 Discontinued (Patient preference/d iscontinuati on) documented as of this encounter (statuses as [...] mRNA, LNP-s, No Pre serve, 2-Dose Series (Rundown) 08/10/2021,01/26/2021,01/05/2021 Pneumococcal Conjugate Vacc, 13 Valent (Prevnar) [...] as of this encounter Progress Notes * Rita Coy PA-C - 05/15/2023 10:47 AM EDT HISTORY & PHYSICAL EXAMINATION - NEUROLOGY Name: Saqib Belle Date: 05/15/2023 Time: 10:47 AM Referring Provider: Yancy Rangel* Chief Complaint: Chief Complaint Patient presents with Migraine Headache This is a 42 year old right handed woman returns today for follow up for migraine. HPI & Source of HPI The patient was the historian, and she is reliable. She has seen Dr Wei Grant and Filiberto FRAUSTO in the past. She had a PMH- mixed connective tissue disease/lupus with SSA positive, positive AUGIE, has a history of sections, preeclampsia, she is a chronic smoker, has had high-risk pregnancies,with tubal ligation, and has had nasal surgery, chronic cough, intractable chronic migraine headaches since childhood treated variably over the years and with variable degrees of ocular auras.She did have anMRI which was WNL. She had been on mg ++ox,riboflavin, Topamaxcurrently onVerapamil ER 240 mg which decreased the severity of her migraine and is only getting them 1-2 x per month. She keeps well hydrated but does drinksome sweet tea during the day, is still smoking /1/2 ppd cig, no other drugs, no EtOH use. Since her stroke she is unable to take triptans. Emgality made her have nausea and vomiting so she had so stop it after the 2nd dose. She is now having < 1 migraine a month and is no longer taking riboflavin or mg ox. And doing well.. Denies CP, SOB, abdominal pain, vision changes. Patient Active Problem List Diagnosis Code SS-A antibody positive R76.8 SLE (systemic lupus erythematosus) ([facility]) M32.9 Encounter for long-term (current) use of medications Z79.899 Primary osteoarthritis of both first carpometacarpal joints M18.0 Intractable chronic migraine without aura and without status migrainosus G43.719 Severe major depression ([facility]) F32.2 Tobacco use disorder F17.200 Arthritis of carpometacarpal (CMC) joints of both thumbs M18.0 Chronic kidney disease, stage 3a ([facility]) N18.31 Greater trochanteric bursitis, left M70.62 Family History Problem Relation Age of Onset Heart Disorder Father CAD Cancer Father kidney No Past Hx Mother No Past Hx Brother No Past Hx Daughter x2 Heart Disorder Grandfather (Paternal) Lung Disorder Father COPD Other (Dementia) Grandmother (Paternal) Breast Cancer Grandmother (Maternal) Great Grandmother Medications: Are you taking your medications? yes Current Outpatient Medications Medication Sig Dispense Refill Magnesium Oxide 400 MG Oral Capsule Take 1 Capsule (400 mg) by mouth in the morning. 30 Capsule2 Riboflavin 100 MG Oral Tablet (Riboflavin) Take 4 Tablets (400 mg) by mouth daily with breakfast. 120 Tablet 5 QUEtiapine Fumarate 100 MG Oral Tablet (SEROquel) Take 1 Tablet (100 mg) by mouth at bedtime. 90 Tablet 1 Zolpidem Tartrate 5 MG Oral Tablet (Ambien) Take 1 Tablet by mouth at bedtime. 30 to 60 minutesprior to sleep. 1 Tablet 0 DULoxetine HCl 60 MG Oral Capsule Delayed Release Particles (Cymbalta) TAKE 1 CAPSULE BY MOUTH ONCE DAILY DO NOT CUT, CRUSH OR CHEW 90 Capsule 1 Hydroxychloroquine Sulfate 200 MG Oral Tablet (Plaquenil) Take 2 Tablets by mouth in the morning. 180 Tablet 3 Verapamil HCl ER 240 MG Oral Tablet Extended Release (Isoptin SR) Take 1 tablet by mouth once daily 90 Tablet 0 Gabapentin 300 MG Oral Capsule (Neurontin) Take 1 capsule by mouth at bedtime 30 Capsule 3 Wegovy 2.4 MG/0.75ML Subcutaneous Solution Auto-injector (Semaglutide-Weight Management) Inject2.4 mg under the skin once a week. 3 mL 5 No current facility-administered medications for this visit. Review of patient's allergies indicates: Allergen Reactions Penicillin G Hives remote Review of Systems: A total number of 10 systems were reviewed pertinent negative and positives not addressed in HPI are listed in the following review. Physical Exam: Constitutional: There were no vitals taken for this visit., appearance over nourished and healthy Ears, Nose, Mouth and Throat: skin normal, eyes normal Respiratory: normal respiratory effort Musculoskeletal: no peripheral edema Skin: normal and intact Eyes: extraocular muscles intact (EOMI) NEUROLOGIC EXAMINATION: Mental status: Alert and interactive Oriented to full date and location Oriented to person Speech fluent with no evidence of aphasia Cranial Nerves Normal findings for Cranial Nerves II - XII Coordination: on [id number] Gait/Stance: Posture normal. Motor: Negative for abnormal muscle bulk and abnormal muscle tone. Strength: Appears normal LABORATORY: Recent labs reviewed Review of prior Studies: No recent imaging available. Impression: Saqib Belle is a 42 year old woman with a history of migraine headaches. Her neurologic examination today reveals no new focal deficit. The history and examination are suggestive of diagnosis/problem list. Testing and Referrals ordered: none ICD-10-CM 1. Intractable chronic migraine without aura and without status migrainosus G43.719 2. Tobacco use disorder F17.200 1. Return in 6 months or sooner if needed 2. Continue Verapamil 240 ER (1 tab) daily 3. Keep well hydrated 4. Recommend smoking cessation 5. PCP for medical management 6. Call with questions concerns Medical Decision Making (determined by lowest of 2 of 3 elements): The medical decision making element of the number and complexity of problems addressed includedat least 2 or more stable chronic illnesses (level 4). The medical decision making element of risk of complications, morbidity, and mortality of patient management is moderate (level 4) due to prescription drug management (moderate risk). The medical decision making element of the amount and complexity of data reviewed and analyzed included an independent interpretation of a test (level 4 at least). When 2 of 3 reach level 4, thenthis element is considered extensive (level 5). I personally spent a total of 30 minutes. This time was for a new office or established visit and was on the same calendar day. Education / Consultation - Topics covered as I spent 20 minutes, which is greater than 50% of this visit, counseling the patient on: 1. Diagnostic Results 2. Prognosis 3. Importance of compliance with chosen treatment options 4. Risk factor reductions 5. Patient and family education Consulted with physician: Nestor Del Toro DO was available for direct supervison. Copy of note sent to PCP and Referring Provider. Total time of visit: 30 minutes. Rita Coy PA-C Neurology [facility] [place] [address] [facility] [place] [address] 05/15/2023 10:47 AM documented in this encounter Plan of Treatment Upcoming Encounters Date Type Specialty Care Team Description 06/06/2023 Imaging Radiology 07/11/2023 Office Visit Family Medicine Yancy Horowitz MD [address] [facility] [place] [address] 09/09/2023 Office Visit Sleep Disorders Raisa Perez DO [address] [place] [address] 10/10/2023 Office Visit Nephrology Jax Baird MD [address] [facility] [place] [address] 01/02/2024 Office Visit Rheumatology Shashi Dawkins MD [facility] [place] [address] Health Maintenance Due Date Last Done Comments [...] Over 09/13/2023 09/13/2022 CKD HGB USE SMARTSET 51589 12/03/202312/03, 12/03/2022, 08/28/2022, Additional history exists CKD PHOS USE SMARTSET 90792 01/11/2024 01/10/2023, 1 Lipid Panel 01/13/2024 01/12/2019, [...] chronic migraine without aura and without status migrainosus- Primary Chronic migraine without aura, with intractable migraine, so stated, without mention of status migrainosus Tobacco use disorder documented in this encounter Advance Directives [...] and were consensually agreed upon. Care Teams Dressage Instructor Relationship Specialty Start Date End Date Yancy Horowitz MD [address] [place] [address] PCP - General Family Medicine 03/13/22 documented as of this encounter
--- OUTSIDE RECORDS SUMMARY | 2023-08-21 22:26 | External Medical Summary | Summary of Care ---
Author Name Unknown Organization [facility] Address [address] [facility] [place] [address] Phone [phone] Care Team Providers Care Tipple Operator Name Role Phone Yancy Horowitz MD Primary Care Provid er Reason for Visit * Reason Onset Date Comments Order Request 04/17/2023 Encounter Details Date Type Department Care Team Description 04/17/2023 Telephone [facility] [address] [place] [address] Yancy Horowitz MD [address] [place] [address] Order Request Allergies Active Allergy Reactions Severity Noted Date Comments Penicillin G 05/14/2012 Hives remote documented as of this encounter (statuses as of 04/21/2023) Medications Medication Sig Dispensed Refills Start Date [...] Active Wegovy 1.7 MG/0.75ML Subcutaneous Solution Auto-injector (Semaglutide-Weight Management) Inject 1.7 mg under the skin once a week. 3 mL 1 04/07/2023 Active Verapamil HCl ER 240 MG Oral Tablet Extended Release (Isoptin SR)Indications:Intrac table chronic migraine without aura and without status migrainosus Take 1 tablet by mouth once daily 90 Tablet 0 04/15/2023 Active documented as of this encounter (statuses as of 04/21/2023) Active Problems Problem Noted Date Greater trochanteric [...] as of this encounter (statuses as of 04/21/2023) Resolved Problems Problem Noted Date Resolved Date [...] as of this encounter (statuses as of 04/21/2023) Immunizations Name Administration Dates Next Due COVID-19 mRNA, LNP-s, No Pre serve, 2-Dose Series ([employer]) 08/10/2021,01/26/2021,01/05/2021 Pneumococcal Conjugate Vacc, 13 Valent (Prevnar) [...] Telephone Encounter - Yancy Horowitz MD - 04/21/2023 5:59 PM EDT signed * Telephone Encounter - GUZMAN Herrera - 04/17/2023 9:57 AM EDT May we please have an order placed for a screening mammogram at your earliest convenience. Pt reports no issues. Thank you documented in this encounter Plan of Treatment Upcoming Encounters Date Type Specialty Care Team Description 04/25/2023 Telemedicine Neurology Rita Coy PA-C [address] [place] [address] 06/06/2023 Imaging Radiology 07/11/2023 Office Visit Family Medicine Yancy Horowitz MD [address] [place] [address] 10/10/2023 Office Visit Nephrology Jax Baird MD [address] [place], [place] [address] 01/02/2024 Office Visit Rheumatology Shashi Dawkins MD [address] [place] [place] [address] Scheduled Orders Name Type Priority Associated Diagnoses Orde r Schedule MAMMOGRAM SCREENING BILATERAL Medical Imaging Routine Screening mammogram for breast cancer Expected: 04/21/2023 (Approximate), Expires: 05/22/2024 Health Maintenance Due Date Last Done Comments [...] Over 09/13/2023 09/13/2022 CKD HGB USE SMARTSET 64052 12/03/202312/03, 12/03/2022, 08/28/2022, Additional history exists CKD PHOS USE SMARTSET 88697 01/11/2024 01/10/2023, 1 Lipid Panel 01/13/2024 01/12/2019, [...] as of this encounter Visit Diagnoses Diagnosis Screening mammogram for breast cancer- Primary documented in this encounter Advance Directives [...] and were consensually agreed upon. Care Teams Tipple Operator Relationship Specialty Start Date End Date Yancy Horowitz MD [address] [facility] [place] [address] PCP - General Family Medicine 03/13/22 documented as of this encounter
--- OUTSIDE RECORDS SUMMARY | 2023-08-21 22:27 | External Medical Summary | Summary of Care ---
Author Name Unknown Organization [facility] Address [address] [facility] [place] [address] Phone [phone] Care Team Providers Care Binder Stripper Hand Name Role Phone Yancy Horowitz MD Primary Care Provid er Reason for Visit * Reason Onset Date Comments Medication Refill 02/23/2023 Encounter Details Date Type Department Care Team Description 02/23/2023 Refill Rheumatology [place] [address] [facility] [place] [address] Shashi Soliz MD [facility] [employer] [place] [address] Allergies Active Allergy Reactions Severity Noted Date Comments Penicillin G 05/14/2012 Hives remote documented as of this encounter (statuses as of 02/25/2023) Medications Medication Sig Dispensed Refills Start Date [...] OR CHEW 90 Capsule 1 01/23/2023 Active Wegovy 0.5 MG/0.5ML Subcutaneous Solution Auto-injector (Semaglutide-Weigh t Management)Indicat ions:Class 2 obesity due to excess calories without serious comorbidity in adult, unspecified BMI Inject 0.5 mg under the skin once a week. 2 mL 1 02/07/2023 03/09/2023 Active Hydroxychloroquine Sulfate 200 MG Oral Tablet (Plaquenil) Take 2 Tablets by mouth in the morning. 180 Tablet 3 02/25/2023 Active Hydroxychloroquine Sulfate 200 MG Oral Tablet (Plaquenil) TAKE 2 TABLETS BY MOUTH DAILY 180 Tablet 1 08/18/2022 02/23/2023 Discontinued (Refill) documented as of this encounter (statuses as of 02/25/2023) Active Problems Problem Noted Date Greater trochanteric [...] as of this encounter (statuses as of 02/25/2023) Resolved Problems Problem Noted Date Resolved Date [...] as of this encounter (statuses as of 02/25/2023) Immunizations Name Administration Dates Next Due COVID-19 mRNA, LNP-s, No Pre serve, 2-Dose Series (Pfizer) 08/10/2021,01/26/2021,01/05/2021 Pneumococcal Conjugate Vacc, 13 Valent (Prevnar) 06/24/2018 Pneumococcal Polysaccharide PPV23 (Pneumovax) 10/26/2015 Seasonal Influenza, Quadriva lent, No Preserve, 6 Mons & Above, IM 06/21/2022,07/20/2021,09/08/2020,08/20,06/24/2018,07/11/2017 Seasonal Influenza, Quadriva jodyt, No Preserve, IM [...] encounter Miscellaneous Notes * Telephone Encounter - Piper Douglas RPh - 02/25/2023 11:33 AM EDTSigned Prescriptions: Disp Refills Hydroxychloroquine Sulfate 200 MG Oral Tab*180 Ta*3 Sig: Take 2 Tablets by mouth in the morning.Authorizing Provider: SHASHI SOLIZ User: PIPER DOUGLAS N * Telephone Encounter - Piper Douglas RPh - 02/25/2023 11:32 AM EDT Rheumatology: Refill Request(s) Per review of the refill parameters, Medication was refilled Piper Douglas RPh [facility] Clinical Pharmacist Rheumatology Department 02/25/2023,11:32 AM * Telephone Encounter - Koki Ricks CPhT - 02/25/2023 8:18 AM EDTPending Prescriptions: Disp Refills Hydroxychloroquine Sulfate 200 MG Oral Tab*180 Ta*1 Sig: Take 2 Tablets by mouth in the morning. * Telephone Encounter - Koki Ricks CPhT - 02/25/2023 8:17 AM EDT Did you pend patient's preferred pharmacy and medication before forwarding?yes Pharmacy: [facility] [place] Pending Prescriptions: Disp Refills Hydroxychloroquine Sulfate 200 MG Oral Ta*180 Ta*1 Sig: Take 2 Tablets by mouth in the morning. Last Visit: 02/12/2023 (in office), Visit date not found (telemedicine) Next Visit: 01/02/2024 If no future appointments scheduled, and last appointment is greater than a year ago, please schedule patient for a follow-up appointment Last date the medication was ordered: 08.18.22 Is this request for a controlled substance?No [...] 03/27/2023 Telemedicine Neurology Rita Coy PA-C [address] [place] [address] 07/11/2023 Office Visit Family Medicine Yancy Horowitz MD [address], [place] [id number] 10/10/2023 Office Visit Nephrology Jax Baird MD [address] [place] [address] 01/02/2024 Office Visit Rheumatology Shashi Soliz MD [address] [place] [address] Health Maintenance Due Date Last Done Comments [...] exists Albumin/Creatinine Ratio 08/28/2023 08/28/2022, 06/05/2022 Depression Screening, Annual for Pts 12 and Over 09/13/2023 09/13/2022 CKD HGB USE SMARTSET 51412 12/03/202312/03, 12/03/2022, 08/28/2022, Additional history exists CKD PHOS USE SMARTSET 22651 01/11/2024 01/10/2023, 1 Lipid Panel 01/13/2024 01/12/2019, [...] and were consensually agreed upon. Care Teams Binder Stripper Hand Relationship Specialty Start Date End Date Yancy Horowitz MD [address] [facility] [place] [id number] PCP - General Family Medicine 03/13/22 documented as of this encounter
== END 2023-08-21 19:59 | disposition home or self-care (01) | DRG 313 ==
LOC: ED 15:47 → SUATTDRO 18:18 → 4W 18:18
DX: Z88.0 Allergy status to penicillin; R79.89 Other specified abnormal findings of blood chemistry; N17.9 Acute kidney failure, unspecified; Z79.899 Other long term (current) drug therapy; I10 Essential (primary) hypertension; I25.2 Old myocardial infarction; F32.A Depression, unspecified; F17.210 Nicotine dependence, cigarettes, uncomplicated; M32.9 Systemic lupus erythematosus, unspecified; Z82.49 Family history of ischemic heart disease and other diseases of the circulatory system; R07.9 Chest pain, unspecified; I25.10 Atherosclerotic heart disease of native coronary artery without angina pectoris; Z79.82 Long term (current) use of aspirin; E78.5 Hyperlipidemia, unspecified